=== PATIENT | female | born 1990 | race Caucasian/White ===

== ENCOUNTER 2021-11-29 09:43 | Outpatient (CLI) | payer MEDICAID ==
--- NOTE | 2021-11-29 10:40 | PROVIDER PROGRESS NOTE ---
- HPI Chief Complaint: Decreased movement - Procedures OB Procedure Performed: NST Diagnosis/Indication for NST: Decreased movement Service Date of procedure: 11/29/21 (Date Read: 11/29/21) Procedure Details: NST Procedure Start Date 11/29/21 Start Time 09:55 Stop Time 10:30 Vibroacoustic Stimulation Used No Patient States Movement No: had a fall yesterday - Plan Plan: Patient is a [id number]-aju-year-old -0-4-0 at 26 weeks 2 days gestation presenting to triage for decreased movement. She states she had another fall yesterday approximately 24 hours ago. She was moving things from their home and [employer] which has significantly more snow and slipped on the ice again. She fell on her right shoulder without any abdominal trauma. She was not concerned about this as she had no symptoms until she has decreased movement this morning. She denies leaking or bleeding. No contractions. She denies headache, right upper quadrant pain, changes in vision. Past medical history Obesity Anxiety Past surgical history Salpingectomy x2 Family history No pertinent family history Social history No tobacco, alcohol, drugs Physcial Exam Constitutional: alert, no acute distress, well hydrated, well developed, well nourished, appropriate dress. Skin: normal turgor, normal color. Head: atraumatic, normocephalic. Cardiovascular: RRR. Respiratory: no respiratory distress. Abdomen: nondistended, nontender. Spine: normal mobility. Neurologic: normal, sensation intact, motor intact. Psych: affect and mood appropriate, normal interaction, good eye contact. NST: 125 bpm baseline, minimal variability, acelearations present. No decelerations. Appropraite for gestational age. [place]: Quiescent Assessment and plan 31-year-old -0-4-0 at 26 weeks 2 days gestation with decreased movement 1. Decreased movement: NST is appropriate for gestational age. Discussed that NSTs prior to 28 weeks are less accurate as baby does not developed completely. No concern with current progress. 2. Fall: Patient fell 22 hours ago. Landed on shoulder, no direct abdominal trauma. No signs of abruption or labor. Tocometer is quiet, no vaginal bleeding, no leaking. Discussed that she should stay off the ice and take care when walking. Is still in the process of moving from [employer], and suggested she wait until it is safer to do so. 3. High risk social situation: Her IVF is complicated and is IVF was much desired, and her partner with liver/pancreatic cancer currently in treatment makes their dynamic more difficult. Discussed continue to work as a team to continue to have good outcomes.
[2021-11-29 11:05] VITALS: BP 100/53
== END 2021-11-29 10:50 | disposition home or self-care (01) ==
LOC: WFO 09:43 → FBP 09:46 → WFO 10:50
PROVIDERS: ATTEND Obstetrics & Gynecology
DX: O36.8120 Decreased fetal movements, second trimester, not applicable or unspecified (principal); O09.812 Supervision of pregnancy resulting from assisted reproductive technology, second trimester; Z3A.26 26 weeks gestation of pregnancy; Z91.81 History of falling
CPT/HCPCS: 59025; 99212

== ENCOUNTER 2021-11-29 23:00 | Outpatient (CLI) | payer MEDICAID ==
[2021-11-29 23:24] VITALS: BP 113/78
--- NOTE | 2021-11-30 00:55 | PROVIDER PROGRESS NOTE ---
- HPI Chief Complaint: Other (Fall2) Current : Current EDU 03/05/22 Gestation 26 Weeks and 3 Days 5 Para 0 Vital Signs Temperature 98.6 F 11/29/21 23:11 Heart Rate 90 11/29/21 23:11 Respiratory Rate 22 11/29/21 23:11 Blood Pressure 113/78 11/29/21 23:11 Temperature 98.6 F 11/29/21 23:12 Heart Rate 88 11/29/21 23:12 Respiratory Rate 20 11/29/21 23:12 Blood Pressure 113/78 11/29/21 23:12 O2 Saturation - Procedures OB Procedure Performed: NST NST Procedure: NST Procedure Start Date 11/29/21 Start Time 23:12 Stop Time 23:45 Vibroacoustic Stimulation Used No Patient States Movement Yes - Plan Plan: Patient is a 31-year-old at 26 weeks 3 days gestation her for a fall. She was on her porch letting her dog out, and she fell on her knee and then turned and landed on her butt. She had no abdominal trauma. No leaking, bleeding, or contractions. She is very anxious about this and wanted to come in to check. Past medical history Obesity Anxiety Past surgical history Salpingectomy x2 Family history No pertinent family history Social history No tobacco, alcohol, drugs Physcial Exam Constitutional: alert, no acute distress, well hydrated, well developed, well nourished, appropriate dress. Skin: normal turgor, normal color. Head: atraumatic, normocephalic. Respiratory: no respiratory distress. Abdomen: nondistended, nontender. No brusing, abrasions. Back: No bruising or abrasions Neurologic: Normal movement Psych: affect and mood appropriate, normal interaction, good eye contact. Extremities: Left knee with multiple abrasions with no active bleeding. NST: 130 bpm baseline, minimal variability, acelearations present. No decelerations. Appropraite for gestational age. [place]: Quiescent Assessment and plan 31-year-old -0-4-0 at 26 weeks 3 days gestation with fall on knee 1. Knee abrasion: Encouraged to keep clean. 2. Fall: No abdominal trauma. No signs of injury on abdomen or back. Encouraged to remain off ice as much as possible as she has come in for falls three times this week. 3. High risk social situation: Her IVF is complicated and is IVF was much desired, and her partner with liver/pancreatic cancer currently in treatment makes their dynamic more difficult. Discussed continue to work as a team to continue to have good outcomes. We did have a long conversation about her safety and she denies any issues with domestic violence. She feels very safe in her relationship. She feels embarrassed because she did not think about it looking that way, but that she has no concerns from her . This visit, he is waiting in the car, but he has been present in the last two visits and generally seems supportive, although frustrated with the patient when she does more than he wants leading to her falls. Their daughter appears well adjusted and friendly and does not show signs of being fearful.
== END 2021-11-30 00:15 | disposition home or self-care (01) ==
LOC: WFO 23:00 → FBP 23:02 → WFO 11-30 00:15
PROVIDERS: ATTEND Obstetrics & Gynecology
DX: O9A.212 Injury, poisoning and certain other consequences of external causes complicating pregnancy, second trimester (principal); S80.212A Abrasion, left knee, initial encounter; W00.0XXA Fall on same level due to ice and snow, initial encounter; Y92.008 Other place in unspecified non-institutional (private) residence as the place of occurrence of the external cause; O36.8120 Decreased fetal movements, second trimester, not applicable or unspecified; O09.812 Supervision of pregnancy resulting from assisted reproductive technology, second trimester; Z3A.26 26 weeks gestation of pregnancy; Z91.81 History of falling
CPT/HCPCS: 59025; 99212; 99213; 99215

== ENCOUNTER 2021-12-07 00:14 | Outpatient (CLI) | payer MEDICAID ==
--- NOTE | 2021-12-07 01:10 | PROVIDER PROGRESS NOTE ---
- Procedures NST Procedure: NST Procedure Start Time 23:12 Stop Time 23:45 NST: 125 bpm baseline, mod variability, 15x15 accels no decels Appropriate for gestational age. [place]: Quiescent CAT I/AGA tracing Service Date of procedure: 12/07/21 - Plan Plan: ID: Patient is a 31-year-old at 27 weeks 1 days gestation here for labor assessment. HPI: Reports waxing and waning right sided abdominopelvic pain. Rates 6//10 at worst. Started lightly yesterday. kept her from sleeping tonight. Isolated to right side. No VB or LOF. No N/V. IC 4 days ago. Self stimulation intensified discomfort. PNC: DATING by Embryo transfer date of 06/18/21 gives GABO 03/07/22 AB pos RUb imm/VZV NON-IMMUNE HepC neg HepBsAg neg HIV NR RPR NR GCCT neg/neg Early glucola wnl NIPT: 46 XX, low risk Early glucola wnl FAS wnl, LL placenta resolved OBHX: ; ectopic x2, SAB x2 Current IVF Abnl pap cervix Abnl pap vagina; needs repeat Q3 yrs per outside records Dermoid cyst;stable on left ovary Past medical history Obesity Anxiety ectopic Past surgical history Salpingectomy x2 Cholescystectomy D&C for SAB 2101 LSC RSO for ectopic 2012 LSB LSO for ectopic Colonoscopy/endoscopy Tonsillectomy Myringotomy Family history No pertinent family history Social history with Stage IV liver cancer No tobacco, alcohol, drugs T: Quit 2020; 10 years of 0.25 ppd E: none D: none caregiver for PE: VS: 98.8 90 134/66 113/61 Constitutional: alert, no acute distress, well hydrated, well developed, well nourished, appropriate dress. Skin: normal turgor, normal color. Head: atraumatic, normocephalic. Respiratory: no respiratory distress. CV: RR Abdomen: gravid, soft, nondistended, nontender. Deep palpation does not elicit discomfort Back: No CVA tenderness Neurologic: Normal movement Psych: affect and mood appropriate, normal interaction, good eye contact. Extremities: WWP PELVIC: NEFG. Nl BSUMA. Vagina estrogenized. Anterior cervix visually closed. SVE: Closed with at least 1 cm of external length FFN/UA/GCCT/vaginitis panel collected NST: 125 bpm baseline, mod variability, 15x15 accels no decels Appropriate for gestational age. [place]: Quiescent Assessment and plan Patient is a 31-year-old at 27 weeks 1 days gestation here for labor assessment. No symptoms at present. PTL: Reassuring SVE. [place] quiet. FFN negative -low concern for PTL No blood in urine but urine is very concentration. UA does not support UTI. Could have low level nephrolithiasis Overall urine very concentration. Recommended drinking at least 100 oz of water daily. Patient admits she drinks very little water. Discouraged [employer] [place] FWB: Cat I/AGA tracing FU in clinic DX: False labor DOS 12/07/21 NST read 12/07/21
[2021-12-07 02:05] LABS: BILIRUBIN,URINE NEGATIVE (NEGATIVE); GLUCOSE, URINE (UA) NEGATIVE (NEGATIVE); KETONES,URINE (UA) NEGATIVE (NEGATIVE); LEUKOCYTE ESTERASE, URINE NEGATIVE (NEGATIVE); NITRITE,URINE NEGATIVE (NEGATIVE); OCCULT BLOOD,URINE NEGATIVE (NEGATIVE); PROTEIN,URINE NEGATIVE (NEGATIVE); UROBILINOGEN,URINE 0.2 (NORMAL) E.U./dL (NORMAL)
[2021-12-07 02:12] LABS: BACTERIA,URINE None Seen /HPF (None Seen); CLARITY,URINE CLEAR (CLEAR); RBC,URINE None Seen /HPF (0-5); SQUAMOUS EPITHELIAL CELL,UR FEW Squamous (<= Few); WBC,URINE 0-3 /HPF (0-5)
[2021-12-07 02:28] VITALS: BP 113/61
[2021-12-07 04:21] LABS: CHLAMYDIA TRACHOMATIS DNA NEGATIVE (NEGATIVE); NEISSERIA GONORRHOEAE DNA NEGATIVE (NEGATIVE); TRICHOMONAS VAGINALIS DNA NEGATIVE (NEGATIVE)
[2021-12-07 05:02] LABS: BACTERIAL VAGINOSIS DNA NEGATIVE (NEGATIVE); CANDIDA GLABRATA DNA NEGATIVE (NEGATIVE); CANDIDA GROUP DNA NEGATIVE (NEGATIVE); CANDIDA KRUSEI DNA NEGATIVE (NEGATIVE); TRICHOMONAS VAGINALIS DNA NEGATIVE (NEGATIVE)
== END 2021-12-07 02:30 | disposition home or self-care (01) ==
LOC: WFO 00:14 → FBP 00:19 → WFO 02:30
PROVIDERS: ATTEND Obstetrics & Gynecology
DX: O47.02 False labor before 37 completed weeks of gestation, second trimester (principal); O09.812 Supervision of pregnancy resulting from assisted reproductive technology, second trimester; Z3A.27 27 weeks gestation of pregnancy; Z87.891 Personal history of nicotine dependence
CPT/HCPCS: 36415; 59025; 81001; 82731; 87491; 87591; 87661; 87801; 99213

== ENCOUNTER 2021-12-27 14:54 | Outpatient (CLI) | payer MEDICAID ==
[2021-12-27 15:14] LABS: BILIRUBIN,URINE NEGATIVE (NEGATIVE); GLUCOSE, URINE (UA) NEGATIVE (NEGATIVE); KETONES,URINE (UA) NEGATIVE (NEGATIVE); LEUKOCYTE ESTERASE, URINE NEGATIVE (NEGATIVE); NITRITE,URINE NEGATIVE (NEGATIVE); OCCULT BLOOD,URINE NEGATIVE (NEGATIVE); PROTEIN,URINE NEGATIVE (NEGATIVE); UROBILINOGEN,URINE 0.2 (NORMAL) E.U./dL (NORMAL)
[2021-12-27 15:20] VITALS: BP 125/78
[2021-12-27 15:21] LABS: BACTERIA,URINE Rare /HPF (None Seen); CLARITY,URINE CLEAR (CLEAR); MUCUS,URINE Few Strands; RBC,URINE 0-5 /HPF (0-5); SQUAMOUS EPITHELIAL CELL,UR RARE Squamous (<= Few); WBC,URINE 0-3 /HPF (0-5)
[2021-12-27 18:05] LABS: BACTERIAL VAGINOSIS DNA POSITIVE (NEGATIVE); CANDIDA GLABRATA DNA NEGATIVE (NEGATIVE); CANDIDA GROUP DNA NEGATIVE (NEGATIVE); CANDIDA KRUSEI DNA NEGATIVE (NEGATIVE); TRICHOMONAS VAGINALIS DNA NEGATIVE (NEGATIVE)
--- NOTE | 2021-12-27 18:41 | PROVIDER PROGRESS NOTE ---
- HPI Chief Complaint: Labor Check Current : Current EDU 03/05/22 Gestation 30 Weeks and 2 Days 5 Para 0 Vital Signs Temperature 98.1 F 12/27/21 15:05 Heart Rate 89 12/27/21 15:05 Respiratory Rate 18 12/27/21 15:05 Blood Pressure 125/78 12/27/21 15:05 Temperature 98.1 F 12/27/21 15:05 Heart Rate 89 12/27/21 15:05 Respiratory Rate 18 12/27/21 15:05 Blood Pressure 125/78 12/27/21 15:05 O2 Saturation - Procedures OB Procedure Performed: NST NST Procedure: NST Procedure Start Date 12/27/21 Start Time 15:13 Stop Time 15:37 Vibroacoustic Stimulation Used No Patient States Movement Yes Service Date of procedure: 12/27/21 - Plan Plan: ID: Patient is a 31-year-old at 30 weeks 1 days gestation here for labor assessment. HPI: Patient called the answering service last night reporting a sensation of the uterus protruding into the vagina. She had been squatting for more than 30 minutes while washing her dog. She was given warning signs and instructed to call if cmraping worsneing. Today she reports that the sensation of prolapse has resolved but she has had a steady cramping feeling in her lower abdomen all day. No rhythm to it suggestive of contractions. No LOF or VB. Endorses FM. PNC: DATING by Embryo transfer date of 06/18/21 gives GABO 03/07/22 AB pos RUb imm/VZV NON-IMMUNE HepC neg HepBsAg neg HIV NR RPR NR GCCT neg/neg Early glucola wnl NIPT: 46 XX, low risk Early glucola wnl FAS wnl, LL placenta resolved OBHX: ; ectopic x2, SAB x2 Current IVF Abnl pap cervix Abnl pap vagina; needs repeat Q3 yrs per outside records Dermoid cyst;stable on left ovary Past medical history Obesity Anxiety ectopic Past surgical history Salpingectomy x2 Cholescystectomy D&C for SAB 2101 LSC RSO for ectopic 2012 LSB LSO for ectopic Colonoscopy/endoscopy Tonsillectomy Myringotomy Family history No pertinent family history Social history with Stage IV liver cancer No tobacco, alcohol, drugs T: Quit 2019; 10 years of 0.25 ppd E: none D: none caregiver for PE: VS: Constitutional: alert, no acute distress, well hydrated, well developed, well nourished, appropriate dress. Skin: normal turgor, normal color. Head: atraumatic, normocephalic. Respiratory: no respiratory distress. CV: RR Abdomen: gravid, soft, nondistended, nontender. Deep palpation does not elicit discomfort Back: No CVA tenderness Neurologic: Normal movement Psych: affect and mood appropriate, normal interaction, good eye contact. Extremities: WWP PELVIC: Nl per RN exam FFN neg UA wnl GCCT and vaginitis panel pending Formal US shows closed cevical length 2.9 cm NST: 125 bpm baseline, mod variability, 15x15 accels no decels Appropriate for gestational age. [place]: Quiescent Assessment and plan Patient is a 31-year-old at 30 weeks 1 days gestation here for labor assessment. PTL: TVCL > 2.9 cm in closed length. [place] quiet. FFN negative -low concern for PTL UA wnl GCCT and vaginitis panel pending FWB: Cat I/AGA tracing Discharged to home with warning signs reviewed FU in clinic DX: False labor DOS 12/27/21 NST read 12/27/21
--- NOTE | 2021-12-27 18:51 | PROCEDURE REPORT ---
- HPI Diagnosis/Indication for NST: labor Current EDU 03/05/22 Gestation 30 Weeks and 2 Days 5 Para 0 Vital Signs Temperature 98.1 F 12/27/21 15:05 Heart Rate 89 12/27/21 15:05 Respiratory Rate 18 12/27/21 15:05 Blood Pressure 125/78 12/27/21 15:05 Temperature 98.1 F 12/27/21 15:05 Heart Rate 89 12/27/21 15:05 Respiratory Rate 18 12/27/21 15:05 Blood Pressure 125/78 12/27/21 15:05 O2 Saturation - NST Procedure NST Procedure Start Date 12/27/21 Start Time 15:13 Stop Time 15:37 Vibroacoustic Stimulation Used No Patient States Movement Yes NST: 125 bpm baseline, mod variability, 15x15 accels no decels Appropriate for gestational age. [place]: Quiescent Assessment and plan Patient is a 31-year-old at 30 weeks 1 days gestation here for labor assessment. PTL: TVCL > 2.9 cm in closed length. [place] quiet. FFN negative -low concern for PTL UA wnl GCCT and vaginitis panel pending FWB: Cat I/AGA tracing Discharged to home with warning signs reviewed FU in clinic DX: False labor DOS 12/27/21 NST read 12/27/21
--- NOTE | 2021-12-27 19:39 | Ultrasound Report ---
PROCEDURE: OB Transvaginal INDICATIONS: pelvic pain OUTSIDE/PRIOR DATING DATA: Last menstrual period (LMP): 05/30/2021. LMP-based estimated date of delivery (GABO): 03/06/2022. Estimated delivery date based on embryo transfer date: 03/07/2022 First dating scan (date and location): 08/02/2021. Estimated date of delivery (GABO) from first dating scan: 03/06/2022. The below data below was generated using the GABO of 03/06/2022. TECHNIQUE: Real-time scanning was performed of the fetus, with image documentation and biometric measurements. COMPARISON: [facility] OB ultrasound studies 11/07/2021, 10/24/2021, 10/22/2021. FINDINGS: General: A single living intrauterine gestation is present. Presentation: Breech Placenta: Placental position is anterior, without previa. No periplacental fluid collections. Amniotic fluid index: 17.4 cm, within normal limits for gestational age. Largest pocket: 6.1 cm. heart rate: 130 beats per minute. Maternal cervical canal: The closed segment measures 2.9 cm long; normal length is 2.5 cm or more. T here is a small amount of endocervical fluid within the cervix extending from the internal cervical o s. biometrics: Biparietal diameter: 8.0 cm, 32 weeks 1 day Head circumference: 29.5 cm, 32 weeks 4 days Abdominal circumference: 26.2 cm, 30 weeks 3 days Femur length: 5.7 cm, 29 weeks 6 days Estimated gestational age from initial scan: 30 weeks 1 day Composite gestational age from present scan: 31 weeks 2 days Estimated weight and percentile: 1598 g, 52nd percentile Measurement variability for biometric dating: +/- 10 days from 12-20 weeks gestation, +/- 2 weeks fro m 20-30 weeks gestation, +/- 3 weeks for 30 weeks gestation or later. Limited follow up anatomic survey was performed. The right ventricular outflow tract was visualized a nd appears within normal limits. The sacral spine was again not well seen due to position. IMPRESSION: 1. Single living intrauterine demonstrated in breech position. 2. Estimated weight at 52nd percentile. 3. No periplacental collections to suggest abruption. 4. Small amount of endocervical fluid but the closed cervical length appears within normal limits. Reviewed by: Sim Dawson MD on 12/27/2021 7:38 PM PST Approved by: Sim Dawson MD on 12/27/2021 7:38 PM PST Station ID: [id number]
[2021-12-27 21:36] LABS: CHLAMYDIA TRACHOMATIS DNA NEGATIVE (NEGATIVE); NEISSERIA GONORRHOEAE DNA NEGATIVE (NEGATIVE); TRICHOMONAS VAGINALIS DNA NEGATIVE (NEGATIVE)
== END 2021-12-27 17:20 | disposition home or self-care (01) ==
LOC: WFO 14:54 → FBP 14:55 → WFO 17:20
PROVIDERS: ATTEND Obstetrics & Gynecology
DX: O47.1 False labor at or after 37 completed weeks of gestation (principal); O09.813 Supervision of pregnancy resulting from assisted reproductive technology, third trimester; Z3A.30 30 weeks gestation of pregnancy; Z87.891 Personal history of nicotine dependence
CPT/HCPCS: 36415; 59025; 81001; 82731; 87491; 87591; 87661; 87797; 87801; 99215

== ENCOUNTER 2021-12-27 16:10 | Outpatient (CLI) | payer MEDICAID ==
--- NOTE | 2021-12-27 19:39 | Ultrasound Report ---
PROCEDURE: OB Transvaginal INDICATIONS: pelvic pain OUTSIDE/PRIOR DATING DATA: Last menstrual period (LMP): 05/30/2021. LMP-based estimated date of delivery (GABO): 03/06/2022. Estimated delivery date based on embryo transfer date: 03/07/2022 First dating scan (date and location): 08/02/2021. Estimated date of delivery (GABO) from first dating scan: 03/06/2022. The below data below was generated using the GABO of 03/06/2022. TECHNIQUE: Real-time scanning was performed of the fetus, with image documentation and biometric measurements. COMPARISON: [facility] OB ultrasound studies 11/07/2021, 10/24/2021, 10/22/2021. FINDINGS: General: A single living intrauterine gestation is present. Presentation: Breech Placenta: Placental position is anterior, without previa. No periplacental fluid collections. Amniotic fluid index: 17.4 cm, within normal limits for gestational age. Largest pocket: 6.1 cm. heart rate: 130 beats per minute. Maternal cervical canal: The closed segment measures 2.9 cm long; normal length is 2.5 cm or more. T here is a small amount of endocervical fluid within the cervix extending from the internal cervical o s. biometrics: Biparietal diameter: 8.0 cm, 32 weeks 1 day Head circumference: 29.5 cm, 32 weeks 4 days Abdominal circumference: 26.2 cm, 30 weeks 3 days Femur length: 5.7 cm, 29 weeks 6 days Estimated gestational age from initial scan: 30 weeks 1 day Composite gestational age from present scan: 31 weeks 2 days Estimated weight and percentile: 1598 g, 52nd percentile Measurement variability for biometric dating: +/- 10 days from 12-20 weeks gestation, +/- 2 weeks fro m 20-30 weeks gestation, +/- 3 weeks for 30 weeks gestation or later. Limited follow up anatomic survey was performed. The right ventricular outflow tract was visualized a nd appears within normal limits. The sacral spine was again not well seen due to position. IMPRESSION: 1. Single living intrauterine demonstrated in breech position. 2. Estimated weight at 52nd percentile. 3. No periplacental collections to suggest abruption. 4. Small amount of endocervical fluid but the closed cervical length appears within normal limits. Reviewed by: Sim Dawson MD on 12/27/2021 7:38 PM PST Approved by: Sim Dawson MD on 12/27/2021 7:38 PM PST Station ID: [id number]
== END 2021-12-27 23:59 | disposition home or self-care (01) ==
LOC: DI 16:10
PROVIDERS: ATTEND Obstetrics & Gynecology
DX: O32.1XX0 Maternal care for breech presentation, not applicable or unspecified (principal); Z3A.31 31 weeks gestation of pregnancy

== ENCOUNTER 2022-01-13 10:01 | Outpatient (CLI) | payer MEDICAID | END 2022-01-13 10:02 | disposition home or self-care (01) | LOC: LAB 10:01 | PROVIDERS: ATTEND Obstetrics & Gynecology | DX: O09.90 Supervision of high risk pregnancy, unspecified, unspecified trimester (principal) | CPT/HCPCS: 36415; 82950 ==

== ENCOUNTER 2022-01-19 07:43 | Outpatient (CLI) | payer MEDICAID ==
[2022-01-19 08:56] LABS: GTT GLUCOSE,FASTING 101 mg/dL (70-100)
== END 2022-01-19 07:44 | disposition home or self-care (01) ==
LOC: LAB 07:43
PROVIDERS: ATTEND Obstetrics & Gynecology
DX: O09.90 Supervision of high risk pregnancy, unspecified, unspecified trimester (principal)
CPT/HCPCS: 36415; 82951; 82952

== ENCOUNTER 2022-01-23 14:14 | Outpatient (CLI) | payer MEDICAID ==
[2022-01-23 14:33] VITALS: BP 119/65
--- NOTE | 2022-01-26 07:09 | PROVIDER PROGRESS NOTE ---
- HPI Chief Complaint: Decreased movement Current : Current EDU 03/06/22 Gestation 34 Weeks and 0 Days 1 Para 0 Vital Signs Temperature 97.5 F L 01/23/22 14:32 Heart Rate 101 H 01/23/22 14:32 Respiratory Rate 20 01/23/22 14:32 Blood Pressure 119/65 01/23/22 14:32 O2 Saturation 98 01/23/22 14:32 Temperature 97.5 F L 01/23/22 14:34 Heart Rate 101 H 01/23/22 14:32 Respiratory Rate 20 01/23/22 14:32 Blood Pressure 119/65 01/23/22 14:32 O2 Saturation 98 01/23/22 14:32 - Procedures OB Procedure Performed: NST NST Procedure: NST Procedure Start Date 01/23/22 Start Time 14:25 Stop Time 15:02 Vibroacoustic Stimulation Used Yes Patient States Movement No: no movement x 2 days EFM 140 mod mague 15x15 accels after VAS x2, no decels TOCO: quiet Service Date of procedure: 01/23/22 Findings: ID: Patient is a 31-year-old at 34 weeks 0 days gestation here for assessment of decreased movement. HPI: Patient called clinic and reported no FM x 2 days. Was directed to triage for assessment. Patient reports that she rarely feels movement. Attributes this to an anterior placenta. Has been having a lot of stress at home with worsening prognosis for . No VB/CTX/LOF. PNC: LMP: 05/30/2021 GABO by LMP: 03/06/2022 EMBRYO TRANSFER 06/18/2021 Initial Ultrasound date/GABO by US: 07/31/2021 @ [facility] c/w dates. Final GABO by embryo transfer date: 03/07/2022 IVF : Taking aspirin daily. Likely 39 week induction. FOB with stage 4 liver cancer. Worsening prognosis as medication not as effective as it had been AB+ /Rubella immune VZV: nonimmune Genetic testing: "low risk" and "female fetus" Neg CF, Neg Nery, Neg TaySachs FAS: per [facility] charting "10/24 EFW 441g, 80%tile, 11/07 repeat normal with low lying placenta resolved; still needs sacral spine and RVOT views" Glucola: per [facility] charting early 1hr normal; repeat 1hr GTT ordered 12/16/21 Influenza: declines TDAP: 12/05/2021 GBS: HSV: Denies in self or partner Breast pump Rx:01/01/22 MOD: Plan for . Likely 39 week induction. pp contraception: S/P Bilateral salpingectomy. This is IVF . pap:per [facility] charting "NIL +HPV, repeat one year" Covid: Completed [place] vaccine 04/10/21 OBHX: ; ectopic x2, SAB x2 Current IVF Abnl pap cervix Abnl pap vagina; needs repeat Q3 yrs per outside records Dermoid cyst;stable on left ovary Past medical history Obesity Anxiety ectopic Past surgical history Salpingectomy x2 Cholescystectomy D&C for SAB 2101 LSC RSO for ectopic 2012 LSB LSO for ectopic Colonoscopy/endoscopy Tonsillectomy Myringotomy Family history No pertinent family history Social history with Stage IV liver cancer No tobacco, alcohol, drugs T: Quit 2019; 10 years of 0.25 ppd E: none D: none caregiver for PE: VS: 98.8 90 134/66 113/61 Constitutional: alert, no acute distress, well hydrated, well developed, well nourished, appropriate dress. Skin: normal turgor, normal color. Head: atraumatic, normocephalic. Respiratory: no respiratory distress. CV: RR Abdomen: gravid, soft, nondistended, nontender Neurologic: Normal movement Psych: affect and mood appropriate, normal interaction, good eye contact. Extremities: WWP EFM 140 mod mague 15x15 accels after VAS x2, no decels TOCO: quiet Assessment and plan Patient is a 31-year-old at 34 weeks 0 days gestation here for assessment of decreased movement FWB: Cat I tracing Extensive discussion regarding need to present to triage if without movement x 2 hours Provided with kick count instructions and tracking sheet Reviewed that if she cannot feel movement with kick counts, she needs to start twice weekly NSTs for surveillance Will fu with primary OB provider. DOS 01/23/22 NST read 01/23/22
== END 2022-01-23 15:05 | disposition home or self-care (01) ==
LOC: WFO 14:14 → FBP 14:18 → WFO 15:05
PROVIDERS: ATTEND Obstetrics & Gynecology
DX: O36.8130 Decreased fetal movements, third trimester, not applicable or unspecified (principal); O09.813 Supervision of pregnancy resulting from assisted reproductive technology, third trimester; Z3A.34 34 weeks gestation of pregnancy; Z63.79 Other stressful life events affecting family and household; Z79.82 Long term (current) use of aspirin; Z87.891 Personal history of nicotine dependence
CPT/HCPCS: 59025; 99214

== ENCOUNTER 2022-01-27 11:01 | Outpatient (CLI) | payer MEDICAID ==
[2022-01-27 11:27] VITALS: BP 111/63
--- NOTE | 2022-01-27 16:42 | PROCEDURE REPORT ---
- HPI Current EDU 03/06/22 Gestation 34 Weeks and 4 Days 5 Para 0 Vital Signs Temperature 98.2 F 01/27/22 11:10 Temperature 98.3 F 01/27/22 11:15 Heart Rate 98 01/27/22 11:15 Respiratory Rate 18 01/27/22 11:15 Blood Pressure 111/63 01/27/22 11:15 O2 Saturation 98 01/27/22 11:15 - NST Procedure NST Procedure Start Date 01/27/22 Start Time 11:36 Stop Time 11:56 Vibroacoustic Stimulation Used No Patient States Movement Yes: Decreased EFM 135 mod mague 15x15 accels no decels TOCO: quiet - Results and Plan Findings/Impression: 31 yo at 34+4 wga with decreased movement here for NST Cat I tracing Cont with twice weekly NST DOS: 01/27/22 NST read 01/27/22
== END 2022-01-27 12:03 | disposition home or self-care (01) ==
LOC: WFO 11:01 → FBP 11:02 → WFO 12:03
PROVIDERS: ATTEND Obstetrics & Gynecology
DX: O36.8130 Decreased fetal movements, third trimester, not applicable or unspecified (principal); Z3A.34 34 weeks gestation of pregnancy
CPT/HCPCS: 59025

== ENCOUNTER 2022-01-28 16:36 | Outpatient (CLI) | payer MEDICAID ==
--- NOTE | 2022-01-29 11:24 | Ultrasound Report ---
PROCEDURE: OB F/U or Repeat INDICATIONS: UTERINE SIZE DATE DISCREPANCY OUTSIDE/PRIOR DATING DATA: Last menstrual period (LMP): 05/30/2021. LMP-based estimated date of delivery (GABO): 03/06/2022. Estimated date of delivery (GABO) from anterotransfer date: 03/07/2022. First dating scan (date and location): 08/02/2021. Estimated date of delivery (GABO) from first dating scan: 03/06/2022. The below data below was generated using the ultrasound GABO of 03/06/2022. TECHNIQUE: Real-time scanning was performed of the fetus, with image documentation and biometric measurements. Endovaginal scanning: Not performed. COMPARISON: OB ultrasound, 12/27/2021.. FINDINGS: General: A single living intrauterine gestation is present. Presentation: Vertex Placenta: Placental position is anterior, without previa. Amniotic fluid index: 15.4 cm, largest pocket 6.2 cm. heart rate: 145 beats per minute. Maternal cervical canal: Not imaged. biometrics: Biparietal diameter: 36 weeks 5 days Head circumference: 38 weeks 3 days Abdominal circumference: 27 weeks 1 day Femur length: 36 weeks 4 days Estimated gestational age from initial scan: 34 weeks 5 days. Composite gestational age from present scan: 37 weeks 2 days Estimated weight and percentile: 3108.6 g; 96.3% for gestational age. Measurement variability in biometric dating: +/- 10 days from 12-20 weeks gestation, +/- 2 weeks from 20-30 weeks gestation, +/- 3 weeks at 30 weeks gestation or more. Other: Nuchal cord is noted. IMPRESSION: 1. A single living IUP is again demonstrated. Fetus is in vertex presentation. 2. weight 3108.6 g: at the 96.3% for gestational age concerning for macrosomia. 3. Nuchal cord is noted. Reviewed by: Fátima Livingston MD on 01/29/2022 11:23 AM PST Approved by: Fátima Livingston MD on 01/29/2022 11:23 AM PST Station ID: [id number]
== END 2022-01-28 16:37 | disposition home or self-care (01) ==
LOC: DI 16:36
PROVIDERS: ATTEND Obstetrics & Gynecology
DX: O26.843 Uterine size-date discrepancy, third trimester (principal); Z3A.37 37 weeks gestation of pregnancy

== ENCOUNTER 2022-01-30 10:48 | Outpatient (CLI) | payer MEDICAID ==
--- NOTE | 2022-01-30 13:03 | PROCEDURE REPORT ---
- HPI Diagnosis/Indication for NST: Decreased movement Current EDU 03/06/22 Gestation 35 Weeks and 0 Days 1 Para 0 Vital Signs Temperature 98.4 F 01/30/22 11:20 Temperature 98.4 F 01/30/22 11:20 Heart Rate Respiratory Rate Blood Pressure O2 Saturation - NST Procedure NST Procedure Start Date 01/30/22 Start Time 11:25 Stop Time 11:50 Vibroacoustic Stimulation Used No Patient States Movement Yes Date performed: 01/30/22 Date read: 01/30/22 - Results and Plan Plan: Patient is a 31-year-old G1, P0 at 35 weeks 0 days gestation here for scheduled NST. FHT: 140 beats per minute baseline, moderate variability, accelerations present, no decelerations. Daisy: Quiescent Diagnosis 35 weeks gestation IVF Decreased due to movement Continue with twice weekly NST.
== END 2022-01-30 12:10 | disposition home or self-care (01) ==
LOC: WFO 10:48 → FBP 11:31 → WFO 12:10
PROVIDERS: ATTEND Obstetrics & Gynecology
DX: O36.8130 Decreased fetal movements, third trimester, not applicable or unspecified (principal); Z3A.35 35 weeks gestation of pregnancy; O09.813 Supervision of pregnancy resulting from assisted reproductive technology, third trimester
CPT/HCPCS: 59025

== ENCOUNTER 2022-02-03 11:33 | Outpatient (CLI) | payer MEDICAID ==
[2022-02-03 11:52] VITALS: BP 131/79
--- NOTE | 2022-02-03 13:35 | PROCEDURE REPORT ---
- HPI Diagnosis/Indication for NST: Decreased movement Current EDU 03/06/22 Gestation 35 Weeks and 4 Days 5 Para 0 Vital Signs Temperature 98.1 F 02/03/22 11:45 Heart Rate 110 H 02/03/22 11:45 Respiratory Rate 18 02/03/22 11:45 Blood Pressure 131/79 H 02/03/22 11:45 Temperature 98.1 F 02/03/22 11:52 Heart Rate 110 H 02/03/22 11:52 Respiratory Rate 18 02/03/22 11:52 Blood Pressure 131/79 H 02/03/22 11:52 O2 Saturation 99 02/03/22 11:52 - NST Procedure NST Procedure Start Date 02/03/22 Start Time 11:45 Stop Time 12:05 Vibroacoustic Stimulation Used No Patient States Movement Yes EFM: 140s, moderate variability, positive accelerations 15x15, no decelerations [place]: no contractions NST reactive - Results and Plan Findings/Impression: 31yo at 35.4w presenting for NST for decreased movement. No other concerns. VSS as above NST reactive Follow up as scheduled with primary OB
== END 2022-02-03 12:15 | disposition home or self-care (01) ==
LOC: WFO 11:33 → FBP 11:35 → WFO 12:15
PROVIDERS: ATTEND Obstetrics & Gynecology
DX: O36.8130 Decreased fetal movements, third trimester, not applicable or unspecified (principal); Z3A.35 35 weeks gestation of pregnancy
CPT/HCPCS: 59025

== ENCOUNTER 2022-02-06 10:57 | Outpatient (CLI) | payer MEDICAID ==
[2022-02-06 11:59] VITALS: BP 90/60
--- NOTE | 2022-02-06 16:19 | PROCEDURE REPORT ---
- HPI Diagnosis/Indication for NST: Decreased movement Current EDU 03/06/22 Gestation 36 Weeks and 0 Days 5 Para 0 Vital Signs Temperature 98.1 F 02/06/22 11:11 Temperature 98.1 F 02/06/22 11:58 Heart Rate 99 02/06/22 11:58 Respiratory Rate 20 02/06/22 11:58 Blood Pressure 90/60 02/06/22 11:58 O2 Saturation 99 02/06/22 11:58 - NST Procedure NST Procedure Start Date 02/06/22 Start Time 12:11 Stop Time 12:39 Vibroacoustic Stimulation Used No Patient States Movement Yes heart rate baseline-beats per minutes Moderate variability Accelerations 140 Decelerations absents Contractions none NST reactive and reassuring - Results and Plan Findings/Impression: 36 weeks 0 days. Scheduled for NST for history of decreased movement. NST reactive and reassuring. movement noted by patient.
== END 2022-02-06 12:45 | disposition home or self-care (01) ==
LOC: WFO 10:57 → FBP 11:00 → WFO 12:45
PROVIDERS: ATTEND Obstetrics & Gynecology
DX: O36.8130 Decreased fetal movements, third trimester, not applicable or unspecified (principal); Z3A.36 36 weeks gestation of pregnancy; O09.93 Supervision of high risk pregnancy, unspecified, third trimester
CPT/HCPCS: 59025

== ENCOUNTER 2022-02-12 08:00 | Outpatient (CLI) | payer MEDICAID | END 2022-02-12 23:59 | disposition home or self-care (01) | LOC: LAB.WC 08:00 | PROVIDERS: ATTEND Obstetrics & Gynecology | DX: Z36.85 Encounter for antenatal screening for Streptococcus B (principal) | CPT/HCPCS: 87797 ==

== ENCOUNTER 2022-02-13 11:09 | Outpatient (CLI) | payer MEDICAID ==
[2022-02-13 11:34] VITALS: BP 100/69
--- NOTE | 2022-02-28 05:13 | PROCEDURE REPORT ---
- HPI Current EDU 03/06/22 Gestation 37 Weeks and 0 Days 5 Para 0 Vital Signs Temperature 97.9 F 02/13/22 11:32 Heart Rate 83 02/13/22 11:32 Respiratory Rate 18 02/13/22 11:32 Blood Pressure 100/69 02/13/22 11:32 O2 Saturation 98 02/13/22 11:32 Temperature 97.9 F 02/13/22 11:32 Heart Rate 83 02/13/22 11:32 Respiratory Rate 18 02/13/22 11:32 Blood Pressure 100/69 02/13/22 11:32 O2 Saturation 98 02/13/22 11:32 - NST Procedure NST Procedure Start Date 02/13/22 Start Time 11:30 Stop Time 12:00 Vibroacoustic Stimulation Used No Patient States Movement Yes EFM 130 mod mague 15x15 accels no decels TOCO: quiet - Results and Plan Findings/Impression: - Results and Plan Findings/Impression: 31 yo at 37+0 wga with decreased movement here for NST Cat I tracing Cont with twice weekly NST DOS: 02/13/22 NST read 02/13/22
== END 2022-02-13 12:30 | disposition home or self-care (01) ==
LOC: WFO 11:09 → FBP 11:14 → WFO 12:30
PROVIDERS: ATTEND Obstetrics & Gynecology
DX: O36.8130 Decreased fetal movements, third trimester, not applicable or unspecified (principal); O09.93 Supervision of high risk pregnancy, unspecified, third trimester; Z3A.37 37 weeks gestation of pregnancy
CPT/HCPCS: 59025; 99213

== ENCOUNTER 2022-02-17 10:59 | Outpatient (CLI) | payer MEDICAID ==
[2022-02-17 11:17] VITALS: BP 115/69
--- NOTE | 2022-02-28 05:14 | PROCEDURE REPORT ---
- HPI Current EDU 03/06/22 Gestation 37 Weeks and 4 Days 5 Para 0 Vital Signs Temperature 98.1 F 02/17/22 11:09 Heart Rate 97 02/17/22 11:09 Respiratory Rate 99 H 02/17/22 11:09 Blood Pressure 115/69 02/17/22 11:09 O2 Saturation 99 02/17/22 11:09 Temperature 98.1 F 02/17/22 11:55 Heart Rate 97 02/17/22 11:55 Respiratory Rate 17 02/17/22 11:55 Blood Pressure 115/69 02/17/22 11:55 O2 Saturation 99 02/17/22 11:09 - NST Procedure NST Procedure Start Date 02/17/22 Start Time 11:03 Stop Time 12:00 Vibroacoustic Stimulation Used Yes: x1 Patient States Movement Yes EFM 135 mod mague 15x15 accels no decels TOCO: irritable - Results and Plan Findings/Impression: - Results and Plan Findings/Impression: 31 yo at 37+4 wga with decreased movement here for NST Cat I tracing Cont with twice weekly NST DOS: 02/17/22 NST read 02/17/22
== END 2022-02-17 12:05 | disposition home or self-care (01) ==
LOC: WFO 10:59 → FBP 11:01 → WFO 12:05
PROVIDERS: ATTEND Obstetrics & Gynecology
DX: O36.8130 Decreased fetal movements, third trimester, not applicable or unspecified (principal); O09.93 Supervision of high risk pregnancy, unspecified, third trimester; Z3A.37 37 weeks gestation of pregnancy
CPT/HCPCS: 59025

== ENCOUNTER 2022-02-20 16:01 | Outpatient (CLI) | payer MEDICAID ==
--- NOTE | 2022-02-20 22:33 | Ultrasound Report ---
PROCEDURE: OB F/U or Repeat INDICATIONS: SUPERVISION OF HIGH RISK OUTSIDE/PRIOR DATING DATA: Last menstrual period (LMP): 05/30/2021. LMP-based estimated date of delivery (GABO): 03/06/2022. Estimated date of delivery (GABO) from embryo transfer date: 03/07/2022. Estimated date of delivery (GABO) from first dating scan: 03/06/2022. The below data below was generated using the clinical GABO of 03/06/2022 TECHNIQUE: Real-time scanning was performed of the fetus, with image documentation and biometric measurements. COMPARISON: Ultrasound 02/19/2022, 01/28/2022, 12/27/2021. FINDINGS: General: A single living intrauterine gestation is present. Presentation: Vertex Placenta: Placental position is anterior, without previa. Amniotic fluid index: 19.2 cm, within normal limits for gestational age. Largest pocket: 6.7 cm. heart rate: 131 beats per minute. Maternal cervical canal: Not imaged. biometrics: Biparietal diameter: 9.9 cm, 40 weeks 4 days Head circumference: 35.5 cm, 41 weeks 4 days Abdominal circumference: 38.6 cm, out of range Femur length: 7.5 cm, 38 weeks 2 days Estimated gestational age from initial scan: 38 weeks 0 days Composite gestational age from present scan: 40 weeks 1 day Estimated weight and percentile: 4402 g, percentile out of range. Measurement variability in biometric dating: +/- 10 days from 12-20 weeks gestation, +/- 2 weeks from 20-30 weeks gestation, +/- 3 weeks at 30 weeks gestation or more. IMPRESSION: 1. Single living intrauterine demonstrating interval growth with estimated weight gre ater than reference ranges. Findings are suggestive of macrosomia and clinical follow-up is recommend ed. 2. Amniotic fluid index measures 19.2 cm, within normal limits. Reviewed by: Sim Villarreal MD on 02/20/2022 10:31 PM PDT Approved by: Sim Villarreal MD on 02/20/2022 10:31 PM PDT Station ID: [id number]
== END 2022-02-20 16:02 | disposition home or self-care (01) ==
LOC: DI 16:01
PROVIDERS: ATTEND Obstetrics & Gynecology
DX: O09.93 Supervision of high risk pregnancy, unspecified, third trimester (principal); Z3A.40 40 weeks gestation of pregnancy

== ENCOUNTER 2022-02-24 10:55 | Outpatient (CLI) | payer MEDICAID ==
[2022-02-24 11:18] VITALS: BP 108/52
--- NOTE | 2022-02-24 13:30 | PROCEDURE REPORT ---
- HPI Diagnosis/Indication for NST: Decreased movement Current EDU 03/06/22 Gestation 38 Weeks and 4 Days 5 Para 0 Vital Signs Temperature 98.9 F 02/24/22 11:13 Heart Rate 81 02/24/22 11:13 Respiratory Rate 16 02/24/22 11:13 Blood Pressure 108/52 L 02/24/22 11:13 Temperature 98.9 F 02/24/22 11:14 Heart Rate 81 02/24/22 11:14 Respiratory Rate 16 02/24/22 11:14 Blood Pressure 108/52 L 02/24/22 11:14 O2 Saturation 99 02/24/22 11:14 - NST Procedure NST Procedure Start Date 02/24/22 Start Time 11:12 Stop Time 11:55 Vibroacoustic Stimulation Used No Patient States Movement Yes Date performed: 02/24/2022 Date read: 02/24/2022 - Results and Plan Plan: FHT: 125 beats per minute baseline, moderate variability, accelerations present, no decelerations. Gantt: Quiescent Diagnosis 38 weeks induction Decreased movement macrosomia Impaired glucose tolerance Excessive weight gain in . Continue with twice weekly NST.
== END 2022-02-24 12:00 | disposition home or self-care (01) ==
LOC: WFO 10:55 → FBP 10:56 → WFO 12:00
PROVIDERS: ATTEND Obstetrics & Gynecology
DX: O36.8130 Decreased fetal movements, third trimester, not applicable or unspecified (principal); O36.63X0 Maternal care for excessive fetal growth, third trimester, not applicable or unspecified; O99.810 Abnormal glucose complicating pregnancy; O26.03 Excessive weight gain in pregnancy, third trimester; Z3A.38 38 weeks gestation of pregnancy
CPT/HCPCS: 59025; 99214

== ENCOUNTER 2022-02-26 13:07 | Outpatient (CLI) | payer MEDICAID ==
[2022-02-26 14:14] LABS: BASOPHILS % (AUTO) 0.2 %; EOSINOPHILS # (AUTO) 0.1 10^3/uL (0.0-0.7); EOSINOPHILS % (AUTO) 0.6 %; HCT - HEMATOCRIT 32.8 % (37.0-47.0); HGB - HEMOGLOBIN 10.7 g/dL (12.0-16.0); LYMPHOCYTES # (AUTO) 1.6 10^3/uL (1.5-3.5); LYMPHOCYTES % (AUTO) 18.3 %; MEAN CORPUSCULAR HEMOGLOBIN 26.6 pg (27.0-31.0); MEAN CORPUSCULAR HGB CONC 32.6 g/dL (32.0-36.0); MEAN CORPUSCULAR VOLUME 81.6 fL (81.0-99.0); MEAN PLATELET VOLUME 10.7 fL (7.9-10.8); MONOCYTES # (AUTO) 0.3 10^3/uL (0.0-1.0); MONOCYTES % (AUTO) 3.8 %; NEUTROPHILS # (AUTO) 6.7 10^3/uL (1.5-6.6); NEUTROPHILS % (AUTO) 76.8 %; PLT - PLATELET COUNT 185 10^3/uL (130-450); RED BLOOD COUNT 4.02 10^6/uL (4.20-5.40); RED CELL DISTRIBUTION WIDTH 15.3 % (12.0-15.0); WHITE BLOOD COUNT 8.7 x10^3/uL (4.8-10.8)
[2022-02-26 14:18] VITALS: BP 117/72
--- NOTE | 2022-02-28 05:31 | PROCEDURE REPORT ---
- HPI Current EDU 03/06/22 Gestation 38 Weeks and 6 Days 5 Para 0 Vital Signs Temperature 98.2 F 02/26/22 14:00 Heart Rate 62 02/26/22 14:00 Respiratory Rate 16 02/26/22 14:00 Blood Pressure 117/72 02/26/22 14:00 O2 Saturation 100 02/26/22 14:00 Temperature 98.2 F 02/26/22 14:20 Heart Rate 62 02/26/22 14:20 Respiratory Rate 16 02/26/22 14:20 Blood Pressure 117/72 02/26/22 14:20 O2 Saturation 100 02/26/22 14:00 - NST Procedure NST Procedure Start Date 02/26/22 Start Time 14:05 Stop Time 14:25 Vibroacoustic Stimulation Used No Patient States Movement Yes EFM: 125 beats per minute baseline, moderate variability, accelerations present, no decelerations. [place]: irreg - Results and Plan Findings/Impression: 31 yo at 38+6 wga with complicated by prob list below here for NST EFM 125 beats per minute baseline, moderate variability, accelerations present, no decelerations. [place]: irreg Cat I tracing Diagnosis BMI >45 Decreased movement macrosomia Impaired glucose tolerance Excessive weight gain in . Continue with twice weekly NST. READ 02/26/22 DOS 02/26/22
== END 2022-02-26 14:30 | disposition home or self-care (01) ==
LOC: LAB 13:07 → FBP 13:10 → LAB 14:30
PROVIDERS: ATTEND Obstetrics & Gynecology
DX: Z01.812 Encounter for preprocedural laboratory examination (principal); O36.60X0 Maternal care for excessive fetal growth, unspecified trimester, not applicable or unspecified; O24.919 Unspecified diabetes mellitus in pregnancy, unspecified trimester
CPT/HCPCS: 36415; 59025; 85025; 86850; 86900; 86901

== ENCOUNTER 2022-02-27 09:00 | Inpatient (IN) | payer MEDICAID ==
--- OUTSIDE RECORDS SUMMARY | 2022-02-27 09:04 | EXTERNAL MEDICAL SUMMARY RPT | Continuity of Care Document ---
:1990 Author Organization [facility] Address [address] [place] [address] Phone Care Team Providers Name Role Phone RN Unavailable Unavailable MA-C Unavailable Unavailable MD Unavailable Unavailable Direct Unavailable Unavailable MPH Unavailable Unavailable VP COMPLIANCE Unavailable Unavailable Elisha Unavailable Unavailable RN Unavailable Unavailable Allergies No information. Encounters No information. Medications No information. Problems date description facility 20220211 [facility],REFLEX IF PEN ALLERGIC All 20220211 Encounter for screening for S treptococcus B All 20220211 Encounter for screening for S treptococcus B of All mother 20220211 screening All 20220129 [facility] All 20220124 [facility] FOLLOW-[facility] All 20220123 Decreased movements affecting reema gement of mother, All antepartum condition or complication 20220123 Reduced movement All 20220123 NST All 20220123 Decreased movements, third trimes ter, not applicable or All unspecified 20220115 Uterine size for dates discrepancy All 20220115 Uterine size-date discrepancy, third tr imester All 20220115 Uterine size date discrepancy, antepart um condition or All complication 20220113 3HR GTT All 20211216 Other specified conditions influencing health status All 20211216 Details of drug misuse behavior All 20211216 Abnormal immunological findings in spec imens from female All genital organs 20211216 Procedure carried out on subject All 20211216 Other specified problems related to [facility] All 20211216 Total score? All 20211216 resulting from assisted repro ductive technology All 20211216 Abnormal cervical Papanicolaou smear wit h positive human All papillomavirus deoxyribonucleic acid randy t 20211216 Supervision of high risk All 20211216 Other specified health status All 20211216 Other health problems within the family All 20211216 [facility] OB FOLLOW-UP All 20211216 Supervision of resulting from assisted reproductive All technology, unspecified trimester 20211216 1HR GTT All 20211216 Tobacco smoking status NHIS All 20211216 Supervision of unspecified high-risk pr egnancy All 20211216 Supervision of high risk , uns pecified, unspecified All trimester 20211216 Caregiver role strain All 20211216 Alcohol use All 20211216 Never smoker All 20211216 Varicella non-immune All 20211216 Human papillomavirus infection in condit ions classified All elsewhere and of unspecified site 20211207 No current problems or disability - unk nown All Procedures date description facility 20220220 0502F - SUBSEQUENT VISIT All 20220211 [facility],REFLEX IF PEN ALLERGIC All 20220211 0502F - SUBSEQUENT VISIT All 20220203 0502F - SUBSEQUENT VISIT All 20220203 0502F - SUBSEQUENT VISIT All 20220203 0502F - SUBSEQUENT VISIT All 20220129 0502F - SUBSEQUENT VISIT All 20220129 0502F - SUBSEQUENT VISIT All 20220129 0502F - SUBSEQUENT VISIT All 20220129 0502F - SUBSEQUENT VISIT All 20220124 [facility] FOLLOW-UP All 20220124 US OB FOLLOW-UP All 20220124 US OB FOLLOW-UP All 20220124 US OB FOLLOW-UP All 20220115 0502F - SUBSEQUENT VISIT All 20220115 0502F - SUBSEQUENT VISIT All 20220115 0502F - SUBSEQUENT VISIT All 20220115 0502F - SUBSEQUENT VISIT All 20220115 0502F - SUBSEQUENT VISIT All 20220115 0502F - SUBSEQUENT VISIT All 20220113 3HR GTT All 20220113 3HR GTT All 20220113 3HR GTT All 20220113 3HR GTT All 20220101 0502F - SUBSEQUENT VISIT All 20220101 0502F - SUBSEQUENT VISIT All 20220101 0502F - SUBSEQUENT VISIT All 20220101 0502F - SUBSEQUENT VISIT All 20220101 0502F - SUBSEQUENT VISIT All 20220101 0502F - SUBSEQUENT VISIT All 20211216 [id number] Initial Visit (Global) All 20211216 1HR GTT All 20211216 [id number] Initial Visit (Global) All 20211216 1HR GTT All 20211216 US OB FOLLOW-UP All 20211216 [id number] Initial Visit (Global) All 20211216 1HR GTT All 20211216 US OB FOLLOW-UP All 20211216 [id number] Initial Visit (Global) All 20211216 [id number] Initial Visit (Global) All 20211216 1HR GTT All 20211216 [id number] Initial Visit (Global) All [id number] 1HR GTT All 20211216 US OB FOLLOW-UP All 20211216 [id number] Initial Visit (Global) All 20211216 1HR GTT All 20211216 US OB FOLLOW-UP All Results test status date ordered by attending specimen antoine e Vaginal_Group_B_Strep_ unknown [id number] unknown unknown unknown by_Real-Time_PCR T unknown [id number] unknown unknown unknown WBC_urine_on_microscop unknown [id number] unknown unknown unknown y Urobilinogen_Presence_ unknown [id number] unknown unknown unknown in_Urine_by_Test_strip Specific_gravity_of_Ur unknown [id number] unknown unknown unknown ine_by_Test_strip Nitrite_Presence_in_Ur unknown [id number] unknown unknown unknown ine_by_Test_strip Leukocyte_esterase_Pre unknown 24143211 unknown unknown unknown sence_in_Urine_by_Test_ strip Ketones_Mass_volume_in unknown [id number] unknown unknown unknown _Urine_by_Test_strip Color_of_Urine unknown [id number] unknown unknown unknown Bilirubin.total_Presen unknown [id number] unknown unknown unknown ce_in_Urine_by_Test_str ip clarity_urine_point unknown [id number] unknown unknown unk nown pH_study_of_acidity unknown [id number] unknown unknown unk nown glucose_urine unknown 57381397 unknown unknown unknown leukocyte_esterase_uri unknown 24681048 unknown unknown unknown ne_by_dipstick urobilinogen_urine_sem unknown [id number] unknown unknown unknown iquantitative_dipstick_ specific_gravity_urine unknown 99279097 unknown unknown unknown nitrite_urine_semiquan unknown [id number] unknown unknown unknown titative ketones_urine_by_test_ unknown 66250944 unknown unknown unknown strip bilirubin_urine unknown 32003272 unknown unknown unknown urine_color unknown [id number] unknown unknown unknown Glucose_Mass_volume_in unknown 50580743 unknown unknown unknown _Urine WBC_urine_on_microscop unknown [id number] unknown unknown unknown y WBC_URINE unknown 75512178 unknown unknown unknown UROBILINOGEN_URINE unknown 41361315 unknown unknown unkn own SPECIFIC_GRAVITY_URINE unknown [id number] unknown unknown unknown T unknown [id number] unknown unknown unknown T unknown 74364099 unknown unknown unknown T unknown 05887512 unknown unknown unknown T unknown 80264050 unknown unknown unknown T unknown 51641180 unknown unknown unknown T unknown 04814111 unknown unknown unknown T unknown 35603034 unknown unknown unknown T unknown 05303648 unknown unknown unknown T unknown 98026853 unknown unknown unknown T unknown 09978141 unknown unknown unknown T unknown 00507626 unknown unknown unknown PH_URINE unknown 91050825 unknown unknown unknown NITRITE_URINE unknown [id number] unknown unknown unknown LEUKOCYTE_ESTERASE_URI unknown 15037081 unknown unknown unknown NE KETONES_URINE_UA_ unknown [id number] unknown unknown unkno wn GLUCOSE_URINE_UA_ unknown [id number] unknown unknown unkno wn COLOR_URINE unknown 60827614 unknown unknown unknown CLARITY_URINE unknown [id number] unknown unknown unknown BILIRUBIN_URINE unknown [id number] unknown unknown unknown WBC_urine_on_microscop unknown [id number] unknown unknown unknown y Urobilinogen_Presence_ unknown 59290183 unknown unknown unknown in_Urine_by_Test_strip Specific_gravity_of_Ur unknown 80558882 unknown unknown unknown ine_by_Test_strip Nitrite_Presence_in_Ur unknown 44090071 unknown unknown unknown ine_by_Test_strip Leukocyte_esterase_Pre unknown 51528646 unknown unknown unknown sence_in_Urine_by_Test_ strip Ketones_Mass_volume_in unknown 83909959 unknown unknown unknown _Urine_by_Test_strip Color_of_Urine unknown 48453476 unknown unknown unknown Bilirubin.total_Presen unknown 39173877 unknown unknown unknown ce_in_Urine_by_Test_str ip clarity_urine_point unknown 15757883 unknown unknown unk nown pH_study_of_acidity unknown 38791827 unknown unknown unk nown glucose_urine unknown 43981231 unknown unknown unknown leukocyte_esterase_uri unknown 27124038 unknown unknown unknown ne_by_dipstick urobilinogen_urine_sem unknown 22877774 unknown unknown unknown iquantitative_dipstick_ specific_gravity_urine unknown 15696620 unknown unknown unknown nitrite_urine_semiquan unknown 88149024 unknown unknown unknown titative ketones_urine_by_test_ unknown 34273924 unknown unknown unknown strip bilirubin_urine unknown 16819772 unknown unknown unknown urine_color unknown 17705094 unknown unknown unknown Glucose_Mass_volume_in unknown 55169938 unknown unknown unknown _Urine WBC_urine_on_microscop unknown 37691104 unknown unknown unknown y WBC_URINE unknown 46616600 unknown unknown unknown UROBILINOGEN_URINE unknown 24034228 unknown unknown unkn own SPECIFIC_GRAVITY_URINE unknown 86695082 unknown unknown unknown T unknown 68389993 unknown unknown unknown T unknown 52758163 unknown unknown unknown T unknown 80930683 unknown unknown unknown T unknown 34172180 unknown unknown unknown T unknown 55534715 unknown unknown unknown T unknown 28563878 unknown unknown unknown T unknown 03552617 unknown unknown unknown T unknown 10391028 unknown unknown unknown T unknown 29497127 unknown unknown unknown T unknown 74388416 unknown unknown unknown T unknown 40611627 unknown unknown unknown PH_URINE unknown 41266726 unknown unknown unknown NITRITE_URINE unknown 62061110 unknown unknown unknown LEUKOCYTE_ESTERASE_URI unknown [id number] unknown unknown unknown NE KETONES_URINE_UA_ unknown 15711505 unknown unknown unkno wn GLUCOSE_URINE_UA_ unknown 07600060 unknown unknown unkno wn COLOR_URINE unknown 46021590 unknown unknown unknown CLARITY_URINE unknown 61288916 unknown unknown unknown BILIRUBIN_URINE unknown 63634691 unknown unknown unknown glucose_tolerance_test unknown 66678905 unknown unknown unknown _with_glucose_fasting blood_glucose_3_hours_ unknown 25688011 unknown unknown unknown after_glucose_tolerance _test blood_glucose_2_hours_ unknown 90622669 unknown unknown unknown after_glucose_tolerance _test blood_glucose_60_minut unknown 58567838 unknown unknown unknown es_after_glucose_tolera nce_test glucose_tolerance_test unknown 93993164 unknown unknown unknown _with_glucose_fasting blood_glucose_3_hours_ unknown [id number] unknown unknown unknown after_glucose_tolerance _test blood_glucose_2_hours_ unknown 14631267 unknown unknown unknown after_glucose_tolerance _test blood_glucose_60_minut unknown 78920656 unknown unknown unknown es_after_glucose_tolera nce_test glucose_tolerance_test unknown 69849471 unknown unknown unknown _with_glucose_fasting blood_glucose_3_hours_ unknown 77763238 unknown unknown unknown after_glucose_tolerance _test blood_glucose_2_hours_ unknown 27674910 unknown unknown unknown after_glucose_tolerance _test blood_glucose_60_minut unknown 23148683 unknown unknown unknown es_after_glucose_tolera nce_test glucose_tolerance_test unknown 60794492 unknown unknown unknown _with_glucose_fasting blood_glucose_3_hours_ unknown 02323106 unknown unknown unknown after_glucose_tolerance _test blood_glucose_2_hours_ unknown 91989831 unknown unknown unknown after_glucose_tolerance _test blood_glucose_60_minut unknown 23815277 unknown unknown unknown es_after_glucose_tolera nce_test blood_glucose_1_hour_a unknown 99779439 unknown unknown unknown fter_100_gm_oral_glucos e blood_glucose_1_hour_a unknown 20120504 unknown unknown unknown fter_50_gm_oral_glucose blood_glucose_1_hour_a unknown 34007145 unknown unknown unknown fter_100_gm_oral_glucos e blood_glucose_1_hour_a unknown 44904954 unknown unknown unknown fter_50_gm_oral_glucose T unknown 86925779 unknown unknown unknown GLUCOSE_1H_PP_50GM_DOS unknown 25079031 unknown unknown unknown E blood_glucose_1_hour_a unknown 95035762 unknown unknown unknown fter_100_gm_oral_glucos e blood_glucose_1_hour_a unknown 61057758 unknown unknown unknown fter_50_gm_oral_glucose blood_glucose_1_hour_a unknown 64188324 unknown unknown unknown fter_100_gm_oral_glucos e blood_glucose_1_hour_a unknown 17876646 unknown unknown unknown fter_50_gm_oral_glucose T unknown 44403531 unknown unknown unknown GLUCOSE_1H_PP_50GM_DOS unknown 74656159 unknown unknown unknown E blood_glucose_1_hour_a unknown 24086496 unknown unknown unknown fter_100_gm_oral_glucos e blood_glucose_1_hour_a unknown 22498959 unknown unknown unknown fter_50_gm_oral_glucose blood_glucose_1_hour_a unknown 37019246 unknown unknown unknown fter_100_gm_oral_glucos e blood_glucose_1_hour_a unknown 61470211 unknown unknown unknown fter_50_gm_oral_glucose T unknown 09007290 unknown unknown unknown GLUCOSE_1H_PP_50GM_DOS unknown 88671496 unknown unknown unknown E blood_glucose_1_hour_a unknown 94957493 unknown unknown unknown fter_100_gm_oral_glucos e blood_glucose_1_hour_a unknown 53490126 unknown unknown unknown fter_50_gm_oral_glucose blood_glucose_1_hour_a unknown 91431972 unknown unknown unknown fter_100_gm_oral_glucos e blood_glucose_1_hour_a unknown 26374917 unknown unknown unknown fter_50_gm_oral_glucose T unknown 54405239 unknown unknown unknown GLUCOSE_1H_PP_50GM_DOS unknown 15858569 unknown unknown unknown E blood_glucose_1_hour_a unknown 19724721 unknown unknown unknown fter_100_gm_oral_glucos e blood_glucose_1_hour_a unknown 04698231 unknown unknown unknown fter_50_gm_oral_glucose blood_glucose_1_hour_a unknown 88214440 unknown unknown unknown fter_100_gm_oral_glucos e blood_glucose_1_hour_a unknown 73768060 unknown unknown unknown fter_50_gm_oral_glucose T unknown 29214449 unknown unknown unknown GLUCOSE_1H_PP_50GM_DOS unknown 77436096 unknown unknown unknown E blood_glucose_1_hour_a unknown 10762658 unknown unknown unknown fter_100_gm_oral_glucos e blood_glucose_1_hour_a unknown 53941477 unknown unknown unknown fter_50_gm_oral_glucose blood_glucose_1_hour_a unknown 65929155 unknown unknown unknown fter_100_gm_oral_glucos e blood_glucose_1_hour_a unknown 20772596 unknown unknown unknown fter_50_gm_oral_glucose T unknown 19145720 unknown unknown unknown GLUCOSE_1H_PP_50GM_DOS unknown 00261827 unknown unknown unknown E Candida_glabrata_DNA_P unknown 20211227 unknown unknown unknown resence_in_Vaginal_flui d_by_NAA_with_probe_det ection WBC_urine_on_microscop unknown 53313601 unknown unknown unknown y Urobilinogen_Presence_ unknown 20211227 unknown unknown unknown in_Urine_by_Test_strip Specific_gravity_of_Ur unknown [id number] unknown unknown unknown ine_by_Test_strip Nitrite_Presence_in_Ur unknown [id number] unknown unknown unknown ine_by_Test_strip Leukocyte_esterase_Pre unknown 20211227 unknown unknown unknown sence_in_Urine_by_Test_ strip Ketones_Mass_volume_in unknown 20211227 unknown unknown unknown _Urine_by_Test_strip Color_of_Urine unknown 20211227 unknown unknown unknown Bilirubin.total_Presen unknown 20211227 unknown unknown unknown ce_in_Urine_by_Test_str ip clarity_urine_point unknown 20211227 unknown unknown unk nown pH_study_of_acidity unknown 20211227 unknown unknown unk nown glucose_urine unknown 20211227 unknown unknown unknown leukocyte_esterase_uri unknown 20211227 unknown unknown unknown ne_by_dipstick urobilinogen_urine_sem unknown 20211227 unknown unknown unknown iquantitative_dipstick_ specific_gravity_urine unknown 20211227 unknown unknown unknown nitrite_urine_semiquan unknown 20211227 unknown unknown unknown titative ketones_urine_by_test_ unknown 20211227 unknown unknown unknown strip bilirubin_urine unknown 20211227 unknown unknown unknown urine_color unknown 20211227 unknown unknown unknown Glucose_Mass_volume_in unknown 20211227 unknown unknown unknown _Urine Chlamydia_trachomatis_ unknown 20211227 unknown unknown unknown DNA_Presence_in_Specime n_by_NAA_with_probe_det ection Vaginal_Group_B_Strep_ unknown 20211227 unknown unknown unknown by_Real-Time_PCR Candida_krusei_by_Real unknown 20211227 unknown unknown unknown -Time_PCR chlamydia_DNA_probe unknown 20211227 unknown unknown unk nown TRICHOMONAS_VAGINALIS_ unknown 20211227 unknown unknown unknown DNA_PROBE Candida_glabrata_by_Re unknown 20211227 unknown unknown unknown fu-qezt_XGU_-_fkpilah_m ulture WBC_urine_on_microscop unknown 20211227 unknown unknown unknown y WBC_URINE unknown 20211227 unknown unknown unknown UROBILINOGEN_URINE unknown 20211227 unknown unknown unkn own SPECIFIC_GRAVITY_URINE unknown 20211227 unknown unknown unknown T unknown 20211227 unknown unknown unknown T unknown 20211227 unknown unknown unknown T unknown 20211227 unknown unknown unknown T unknown 20211227 unknown unknown unknown T unknown 20211227 unknown unknown unknown T unknown 20211227 unknown unknown unknown T unknown 20211227 unknown unknown unknown T unknown 20211227 unknown unknown unknown T unknown 20211227 unknown unknown unknown T unknown 20211227 unknown unknown unknown T unknown 20211227 unknown unknown unknown PH_URINE unknown 20211227 unknown unknown unknown NITRITE_URINE unknown 20211227 unknown unknown unknown LEUKOCYTE_ESTERASE_URI unknown 20211227 unknown unknown unknown NE KETONES_URINE_UA_ unknown 20211227 unknown unknown unkno wn GLUCOSE_URINE_UA_ unknown 20211227 unknown unknown unkno wn COLOR_URINE unknown 20211227 unknown unknown unknown CLARITY_URINE unknown 20211227 unknown unknown unknown BILIRUBIN_URINE unknown 20211227 unknown unknown unknown TRICHOMONAS_VAGINALIS_ unknown 20211227 unknown unknown unknown DNA T unknown 20211227 unknown unknown unknown T unknown 20211227 unknown unknown unknown CHLAMYDIA_TRACHOMATIS_ unknown 20211227 unknown unknown unknown DNA CANDIDA_KRUSEI_DNA unknown 20211227 unknown unknown unkn own CANDIDA_GLABRATA_DNA unknown 20211227 unknown unknown un known T unknown 20211227 unknown unknown unknown T unknown 20211227 unknown unknown unknown T unknown 20211227 unknown unknown unknown Candida_glabrata_DNA_P unknown 20211227 unknown unknown unknown resence_in_Vaginal_flui d_by_NAA_with_probe_det ection WBC_urine_on_microscop unknown 20211227 unknown unknown unknown y Neisseria_gonorrhoeae_ unknown 20211227 unknown unknown unknown DNA_probe urine_culture_with_uni unknown 20211227 unknown unknown unknown ts_of_CFunits_mL_ Neisseria_gonorrhoeae_ unknown 20211227 unknown unknown unknown DNA_Presence_in_Specime n_by_NAA_with_probe_det ection Chlamydia_trachomatis_ unknown 20211227 unknown unknown unknown DNA_Presence_in_Specime n_by_NAA_with_probe_det ection Vaginal_Group_B_Strep_ unknown 20211227 unknown unknown unknown by_Real-Time_PCR Candida_krusei_by_Real unknown 20211227 unknown unknown unknown -Time_PCR chlamydia_DNA_probe unknown 20211227 unknown unknown unk nown TRICHOMONAS_VAGINALIS_ unknown 20211227 unknown unknown unknown DNA_PROBE Candida_glabrata_by_Re unknown 20211227 unknown unknown unknown ps-xeql_QXD_-_fqpubay_y ulture WBC_urine_on_microscop unknown 20211227 unknown unknown unknown y WBC_URINE unknown 20211227 unknown unknown unknown T unknown 20211227 unknown unknown unknown TRICHOMONAS_VAGINALIS_ unknown 20211227 unknown unknown unknown DNA T unknown 20211227 unknown unknown unknown T unknown 20211227 unknown unknown unknown CHLAMYDIA_TRACHOMATIS_ unknown 20211227 unknown unknown unknown DNA CANDIDA_KRUSEI_DNA unknown 20211227 unknown unknown unkn own CANDIDA_GLABRATA_DNA unknown 20211227 unknown unknown un known T unknown 20211227 unknown unknown unknown T unknown 20211227 unknown unknown unknown T unknown 20211227 unknown unknown unknown Candida_glabrata_DNA_P unknown 20211227 unknown unknown unknown resence_in_Vaginal_flui d_by_NAA_with_probe_det ection WBC_urine_on_microscop unknown 20211227 unknown unknown unknown y Urobilinogen_Presence_ unknown 20211227 unknown unknown unknown in_Urine_by_Test_strip Specific_gravity_of_Ur unknown 20211227 unknown unknown unknown ine_by_Test_strip Nitrite_Presence_in_Ur unknown 20211227 unknown unknown unknown ine_by_Test_strip Leukocyte_esterase_Pre unknown 20211227 unknown unknown unknown sence_in_Urine_by_Test_ strip Ketones_Mass_volume_in unknown 20211227 unknown unknown unknown _Urine_by_Test_strip Color_of_Urine unknown 20211227 unknown unknown unknown Bilirubin.total_Presen unknown 20211227 unknown unknown unknown ce_in_Urine_by_Test_str ip clarity_urine_point unknown 20211227 unknown unknown unk nown pH_study_of_acidity unknown 20211227 unknown unknown unk nown glucose_urine unknown 20211227 unknown unknown unknown leukocyte_esterase_uri unknown 20211227 unknown unknown unknown ne_by_dipstick urobilinogen_urine_sem unknown 20211227 unknown unknown unknown iquantitative_dipstick_ specific_gravity_urine unknown 20211227 unknown unknown unknown nitrite_urine_semiquan unknown 20211227 unknown unknown unknown titative ketones_urine_by_test_ unknown 20211227 unknown unknown unknown strip bilirubin_urine unknown 20211227 unknown unknown unknown urine_color unknown 20211227 unknown unknown unknown Neisseria_gonorrhoeae_ unknown 20211227 unknown unknown unknown DNA_probe urine_culture_with_uni unknown 20211227 unknown unknown unknown ts_of_CFunits_mL_ Neisseria_gonorrhoeae_ unknown 20211227 unknown unknown unknown DNA_Presence_in_Specime n_by_NAA_with_probe_det ection Glucose_Mass_volume_in unknown 20211227 unknown unknown unknown _Urine Chlamydia_trachomatis_ unknown 20211227 unknown unknown unknown DNA_Presence_in_Specime n_by_NAA_with_probe_det ection Vaginal_Group_B_Strep_ unknown 20211227 unknown unknown unknown by_Real-Time_PCR Candida_krusei_by_Real unknown 20211227 unknown unknown unknown -Time_PCR chlamydia_DNA_probe unknown 20211227 unknown unknown unk nown TRICHOMONAS_VAGINALIS_ unknown 20211227 unknown unknown unknown DNA_PROBE Candida_glabrata_by_Re unknown 20211227 unknown unknown unknown oy-vrxl_XHF_-_juajteo_f ulture WBC_urine_on_microscop unknown 20211227 unknown unknown unknown y WBC_URINE unknown 20211227 unknown unknown unknown UROBILINOGEN_URINE unknown 20211227 unknown unknown unkn own SPECIFIC_GRAVITY_URINE unknown 20211227 unknown unknown unknown T unknown 20211227 unknown unknown unknown T unknown 20211227 unknown unknown unknown T unknown 20211227 unknown unknown unknown T unknown 20211227 unknown unknown unknown T unknown 20211227 unknown unknown unknown T unknown 20211227 unknown unknown unknown T unknown 20211227 unknown unknown unknown T unknown 20211227 unknown unknown unknown T unknown 20211227 unknown unknown unknown T unknown 20211227 unknown unknown unknown T unknown 20211227 unknown unknown unknown PH_URINE unknown 20211227 unknown unknown unknown NITRITE_URINE unknown 20211227 unknown unknown unknown LEUKOCYTE_ESTERASE_URI unknown 20211227 unknown unknown unknown NE KETONES_URINE_UA_ unknown 20211227 unknown unknown unkno wn GLUCOSE_URINE_UA_ unknown 20211227 unknown unknown unkno wn COLOR_URINE unknown 20211227 unknown unknown unknown CLARITY_URINE unknown 20211227 unknown unknown unknown BILIRUBIN_URINE unknown 20211227 unknown unknown unknown TRICHOMONAS_VAGINALIS_ unknown 20211227 unknown unknown unknown DNA T unknown 20211227 unknown unknown unknown T unknown 20211227 unknown unknown unknown CHLAMYDIA_TRACHOMATIS_ unknown 20211227 unknown unknown unknown DNA CANDIDA_KRUSEI_DNA unknown 20211227 unknown unknown unkn own CANDIDA_GLABRATA_DNA unknown 20211227 unknown unknown un known T unknown 20211227 unknown unknown unknown T unknown 20211227 unknown unknown unknown T unknown 20211227 unknown unknown unknown Candida_glabrata_DNA_P unknown 20211227 unknown unknown unknown resence_in_Vaginal_flui d_by_NAA_with_probe_det ection WBC_urine_on_microscop unknown 20211227 unknown unknown unknown y Urobilinogen_Presence_ unknown 20211227 unknown unknown unknown in_Urine_by_Test_strip Specific_gravity_of_Ur unknown 20211227 unknown unknown unknown ine_by_Test_strip Nitrite_Presence_in_Ur unknown 20211227 unknown unknown unknown ine_by_Test_strip Leukocyte_esterase_Pre unknown 20211227 unknown unknown unknown sence_in_Urine_by_Test_ strip Ketones_Mass_volume_in unknown 20211227 unknown unknown unknown _Urine_by_Test_strip Color_of_Urine unknown 20211227 unknown unknown unknown Bilirubin.total_Presen unknown 20211227 unknown unknown unknown ce_in_Urine_by_Test_str ip clarity_urine_point unknown 20211227 unknown unknown unk nown pH_study_of_acidity unknown 20211227 unknown unknown unk nown glucose_urine unknown 20211227 unknown unknown unknown leukocyte_esterase_uri unknown 20211227 unknown unknown unknown ne_by_dipstick urobilinogen_urine_sem unknown 20211227 unknown unknown unknown iquantitative_dipstick_ specific_gravity_urine unknown 20211227 unknown unknown unknown nitrite_urine_semiquan unknown 20211227 unknown unknown unknown titative ketones_urine_by_test_ unknown 20211227 unknown unknown unknown strip bilirubin_urine unknown 20211227 unknown unknown unknown urine_color unknown 20211227 unknown unknown unknown Glucose_Mass_volume_in unknown 20211227 unknown unknown unknown _Urine Chlamydia_trachomatis_ unknown 20211227 unknown unknown unknown DNA_Presence_in_Specime n_by_NAA_with_probe_det ection Vaginal_Group_B_Strep_ unknown 20211227 unknown unknown unknown by_Real-Time_PCR Candida_krusei_by_Real unknown 20211227 unknown unknown unknown -Time_PCR chlamydia_DNA_probe unknown 20211227 unknown unknown unk nown TRICHOMONAS_VAGINALIS_ unknown 20211227 unknown unknown unknown DNA_PROBE Candida_glabrata_by_Re unknown 20211227 unknown unknown unknown aj-jxlh_JEM_-_unlgwvv_s ulture WBC_urine_on_microscop unknown 20211227 unknown unknown unknown y WBC_URINE unknown 20211227 unknown unknown unknown UROBILINOGEN_URINE unknown 20211227 unknown unknown unkn own SPECIFIC_GRAVITY_URINE unknown 20211227 unknown unknown unknown T unknown 20211227 unknown unknown unknown T unknown 20211227 unknown unknown unknown T unknown 20211227 unknown unknown unknown T unknown 20211227 unknown unknown unknown T unknown 20211227 unknown unknown unknown T unknown 20211227 unknown unknown unknown T unknown 20211227 unknown unknown unknown T unknown 20211227 unknown unknown unknown T unknown 20211227 unknown unknown unknown T unknown 20211227 unknown unknown unknown T unknown 20211227 unknown unknown unknown PH_URINE unknown 20211227 unknown unknown unknown NITRITE_URINE unknown 20211227 unknown unknown unknown LEUKOCYTE_ESTERASE_URI unknown 20211227 unknown unknown unknown NE KETONES_URINE_UA_ unknown 20211227 unknown unknown unkno wn GLUCOSE_URINE_UA_ unknown 20211227 unknown unknown unkno wn COLOR_URINE unknown 20211227 unknown unknown unknown CLARITY_URINE unknown 20211227 unknown unknown unknown BILIRUBIN_URINE unknown 20211227 unknown unknown unknown TRICHOMONAS_VAGINALIS_ unknown 20211227 unknown unknown unknown DNA T unknown 20211227 unknown unknown unknown T unknown 20211227 unknown unknown unknown CHLAMYDIA_TRACHOMATIS_ unknown 20211227 unknown unknown unknown DNA CANDIDA_KRUSEI_DNA unknown 20211227 unknown unknown unkn own CANDIDA_GLABRATA_DNA unknown 20211227 unknown unknown un known T unknown 20211227 unknown unknown unknown T unknown 20211227 unknown unknown unknown T unknown 20211227 unknown unknown unknown Candida_glabrata_DNA_P unknown 20211227 unknown unknown unknown resence_in_Vaginal_flui d_by_NAA_with_probe_det ection WBC_urine_on_microscop unknown 20211227 unknown unknown unknown y Urobilinogen_Presence_ unknown 20211227 unknown unknown unknown in_Urine_by_Test_strip Specific_gravity_of_Ur unknown 20211227 unknown unknown unknown ine_by_Test_strip Nitrite_Presence_in_Ur unknown 20211227 unknown unknown unknown ine_by_Test_strip Leukocyte_esterase_Pre unknown 20211227 unknown unknown unknown sence_in_Urine_by_Test_ strip Ketones_Mass_volume_in unknown 20211227 unknown unknown unknown _Urine_by_Test_strip Color_of_Urine unknown 20211227 unknown unknown unknown Bilirubin.total_Presen unknown 20211227 unknown unknown unknown ce_in_Urine_by_Test_str ip clarity_urine_point unknown 20211227 unknown unknown unk nown pH_study_of_acidity unknown 20211227 unknown unknown unk nown glucose_urine unknown 20211227 unknown unknown unknown leukocyte_esterase_uri unknown 20211227 unknown unknown unknown ne_by_dipstick urobilinogen_urine_sem unknown 20211227 unknown unknown unknown iquantitative_dipstick_ specific_gravity_urine unknown 20211227 unknown unknown unknown nitrite_urine_semiquan unknown 20211227 unknown unknown unknown titative ketones_urine_by_test_ unknown 20211227 unknown unknown unknown strip bilirubin_urine unknown 20211227 unknown unknown unknown urine_color unknown 20211227 unknown unknown unknown Glucose_Mass_volume_in unknown 20211227 unknown unknown unknown _Urine Chlamydia_trachomatis_ unknown 20211227 unknown unknown unknown DNA_Presence_in_Specime n_by_NAA_with_probe_det ection Vaginal_Group_B_Strep_ unknown 20211227 unknown unknown unknown by_Real-Time_PCR Candida_krusei_by_Real unknown 20211227 unknown unknown unknown -Time_PCR chlamydia_DNA_probe unknown 20211227 unknown unknown unk nown TRICHOMONAS_VAGINALIS_ unknown 20211227 unknown unknown unknown DNA_PROBE Candida_glabrata_by_Re unknown 20211227 unknown unknown unknown bs-plex_ONT_-_ogrndzc_d ulture WBC_urine_on_microscop unknown 20211227 unknown unknown unknown y WBC_URINE unknown 20211227 unknown unknown unknown UROBILINOGEN_URINE unknown 20211227 unknown unknown unkn own SPECIFIC_GRAVITY_URINE unknown 20211227 unknown unknown unknown T unknown 20211227 unknown unknown unknown T unknown 20211227 unknown unknown unknown T unknown 20211227 unknown unknown unknown T unknown 20211227 unknown unknown unknown T unknown 20211227 unknown unknown unknown T unknown 20211227 unknown unknown unknown T unknown 20211227 unknown unknown unknown T unknown 20211227 unknown unknown unknown T unknown 20211227 unknown unknown unknown T unknown 20211227 unknown unknown unknown T unknown 20211227 unknown unknown unknown PH_URINE unknown 20211227 unknown unknown unknown NITRITE_URINE unknown 20211227 unknown unknown unknown LEUKOCYTE_ESTERASE_URI unknown 20211227 unknown unknown unknown NE KETONES_URINE_UA_ unknown 20211227 unknown unknown unkno wn GLUCOSE_URINE_UA_ unknown 20211227 unknown unknown unkno wn COLOR_URINE unknown 20211227 unknown unknown unknown CLARITY_URINE unknown 20211227 unknown unknown unknown BILIRUBIN_URINE unknown 20211227 unknown unknown unknown TRICHOMONAS_VAGINALIS_ unknown 20211227 unknown unknown unknown DNA T unknown 20211227 unknown unknown unknown T unknown 20211227 unknown unknown unknown CHLAMYDIA_TRACHOMATIS_ unknown 20211227 unknown unknown unknown DNA CANDIDA_KRUSEI_DNA unknown 20211227 unknown unknown unkn own CANDIDA_GLABRATA_DNA unknown 20211227 unknown unknown un known T unknown 20211227 unknown unknown unknown T unknown 20211227 unknown unknown unknown T unknown 20211227 unknown unknown unknown Candida_glabrata_DNA_P unknown 20211227 unknown unknown unknown resence_in_Vaginal_flui d_by_NAA_with_probe_det ection WBC_urine_on_microscop unknown 20211227 unknown unknown unknown y Urobilinogen_Presence_ unknown 20211227 unknown unknown unknown in_Urine_by_Test_strip Specific_gravity_of_Ur unknown 20211227 unknown unknown unknown ine_by_Test_strip Nitrite_Presence_in_Ur unknown 20211227 unknown unknown unknown ine_by_Test_strip Leukocyte_esterase_Pre unknown 20211227 unknown unknown unknown sence_in_Urine_by_Test_ strip Ketones_Mass_volume_in unknown 20211227 unknown unknown unknown _Urine_by_Test_strip Color_of_Urine unknown 20211227 unknown unknown unknown Bilirubin.total_Presen unknown 20211227 unknown unknown unknown ce_in_Urine_by_Test_str ip clarity_urine_point unknown 20211227 unknown unknown unk nown pH_study_of_acidity unknown 20211227 unknown unknown unk nown glucose_urine unknown 20211227 unknown unknown unknown leukocyte_esterase_uri unknown 20211227 unknown unknown unknown ne_by_dipstick urobilinogen_urine_sem unknown 20211227 unknown unknown unknown iquantitative_dipstick_ specific_gravity_urine unknown 20211227 unknown unknown unknown nitrite_urine_semiquan unknown 20211227 unknown unknown unknown titative ketones_urine_by_test_ unknown 20211227 unknown unknown unknown strip bilirubin_urine unknown 20211227 unknown unknown unknown urine_color unknown 20211227 unknown unknown unknown Neisseria_gonorrhoeae_ unknown 20211227 unknown unknown unknown DNA_probe urine_culture_with_uni unknown 20211227 unknown unknown unknown ts_of_CFunits_mL_ Neisseria_gonorrhoeae_ unknown 20211227 unknown unknown unknown DNA_Presence_in_Specime n_by_NAA_with_probe_det ection Glucose_Mass_volume_in unknown 20211227 unknown unknown unknown _Urine Chlamydia_trachomatis_ unknown 20211227 unknown unknown unknown DNA_Presence_in_Specime n_by_NAA_with_probe_det ection Vaginal_Group_B_Strep_ unknown 20211227 unknown unknown unknown by_Real-Time_PCR Candida_krusei_by_Real unknown 20211227 unknown unknown unknown -Time_PCR chlamydia_DNA_probe unknown 20211227 unknown unknown unk nown TRICHOMONAS_VAGINALIS_ unknown 20211227 unknown unknown unknown DNA_PROBE Candida_glabrata_by_Re unknown 20211227 unknown unknown unknown ky-dpey_GDD_-_iikisut_f ulture WBC_urine_on_microscop unknown 20211227 unknown unknown unknown y WBC_URINE unknown 20211227 unknown unknown unknown UROBILINOGEN_URINE unknown 20211227 unknown unknown unkn own SPECIFIC_GRAVITY_URINE unknown 20211227 unknown unknown unknown T unknown 20211227 unknown unknown unknown T unknown 20211227 unknown unknown unknown T unknown 20211227 unknown unknown unknown T unknown 20211227 unknown unknown unknown T unknown 20211227 unknown unknown unknown T unknown 20211227 unknown unknown unknown T unknown 20211227 unknown unknown unknown T unknown 20211227 unknown unknown unknown T unknown 20211227 unknown unknown unknown T unknown 20211227 unknown unknown unknown T unknown 20211227 unknown unknown unknown PH_URINE unknown 20211227 unknown unknown unknown NITRITE_URINE unknown 20211227 unknown unknown unknown LEUKOCYTE_ESTERASE_URI unknown 20211227 unknown unknown unknown NE KETONES_URINE_UA_ unknown 20211227 unknown unknown unkno wn GLUCOSE_URINE_UA_ unknown 20211227 unknown unknown unkno wn COLOR_URINE unknown 20211227 unknown unknown unknown CLARITY_URINE unknown 20211227 unknown unknown unknown BILIRUBIN_URINE unknown 20211227 unknown unknown unknown TRICHOMONAS_VAGINALIS_ unknown 20211227 unknown unknown unknown DNA T unknown 20211227 unknown unknown unknown T unknown 20211227 unknown unknown unknown CHLAMYDIA_TRACHOMATIS_ unknown 20211227 unknown unknown unknown DNA CANDIDA_KRUSEI_DNA unknown 20211227 unknown unknown unkn own CANDIDA_GLABRATA_DNA unknown 20211227 unknown unknown un known T unknown 20211227 unknown unknown unknown T unknown 20211227 unknown unknown unknown T unknown 20211227 unknown unknown unknown Candida_glabrata_DNA_P unknown 20211227 unknown unknown unknown resence_in_Vaginal_flui d_by_NAA_with_probe_det ection WBC_urine_on_microscop unknown 20211227 unknown unknown unknown y Urobilinogen_Presence_ unknown 20211227 unknown unknown unknown in_Urine_by_Test_strip Specific_gravity_of_Ur unknown 20211227 unknown unknown unknown ine_by_Test_strip Nitrite_Presence_in_Ur unknown 20211227 unknown unknown unknown ine_by_Test_strip Leukocyte_esterase_Pre unknown 20211227 unknown unknown unknown sence_in_Urine_by_Test_ strip Ketones_Mass_volume_in unknown 20211227 unknown unknown unknown _Urine_by_Test_strip Color_of_Urine unknown 20211227 unknown unknown unknown Bilirubin.total_Presen unknown 20211227 unknown unknown unknown ce_in_Urine_by_Test_str ip clarity_urine_point unknown 20211227 unknown unknown unk nown pH_study_of_acidity unknown 20211227 unknown unknown unk nown glucose_urine unknown 20211227 unknown unknown unknown leukocyte_esterase_uri unknown 20211227 unknown unknown unknown ne_by_dipstick urobilinogen_urine_sem unknown 20211227 unknown unknown unknown iquantitative_dipstick_ specific_gravity_urine unknown 20211227 unknown unknown unknown nitrite_urine_semiquan unknown 20211227 unknown unknown unknown titative ketones_urine_by_test_ unknown 20211227 unknown unknown unknown strip bilirubin_urine unknown 20211227 unknown unknown unknown urine_color unknown 20211227 unknown unknown unknown urine_culture_with_uni unknown 20211227 unknown unknown unknown ts_of_CFunits_mL_ Glucose_Mass_volume_in unknown 20211227 unknown unknown unknown _Urine Chlamydia_trachomatis_ unknown 20211227 unknown unknown unknown DNA_Presence_in_Specime n_by_NAA_with_probe_det ection Vaginal_Group_B_Strep_ unknown 20211227 unknown unknown unknown by_Real-Time_PCR Candida_krusei_by_Real unknown 20211227 unknown unknown unknown -Time_PCR chlamydia_DNA_probe unknown 20211227 unknown unknown unk nown TRICHOMONAS_VAGINALIS_ unknown 20211227 unknown unknown unknown DNA_PROBE Candida_glabrata_by_Re unknown 20211227 unknown unknown unknown eb-jrez_BLZ_-_robqcwk_g ulture WBC_urine_on_microscop unknown 20211227 unknown unknown unknown y WBC_URINE unknown 20211227 unknown unknown unknown UROBILINOGEN_URINE unknown 20211227 unknown unknown unkn own SPECIFIC_GRAVITY_URINE unknown 20211227 unknown unknown unknown T unknown 20211227 unknown unknown unknown T unknown 20211227 unknown unknown unknown T unknown 20211227 unknown unknown unknown T unknown 20211227 unknown unknown unknown T unknown 20211227 unknown unknown unknown T unknown 20211227 unknown unknown unknown T unknown 20211227 unknown unknown unknown T unknown 20211227 unknown unknown unknown T unknown 20211227 unknown unknown unknown T unknown 20211227 unknown unknown unknown T unknown 20211227 unknown unknown unknown PH_URINE unknown 20211227 unknown unknown unknown NITRITE_URINE unknown 20211227 unknown unknown unknown LEUKOCYTE_ESTERASE_URI unknown 20211227 unknown unknown unknown NE KETONES_URINE_UA_ unknown 20211227 unknown unknown unkno wn GLUCOSE_URINE_UA_ unknown 20211227 unknown unknown unkno wn COLOR_URINE unknown 20211227 unknown unknown unknown CLARITY_URINE unknown 20211227 unknown unknown unknown BILIRUBIN_URINE unknown 20211227 unknown unknown unknown TRICHOMONAS_VAGINALIS_ unknown 20211227 unknown unknown unknown DNA T unknown 20211227 unknown unknown unknown T unknown 20211227 unknown unknown unknown CHLAMYDIA_TRACHOMATIS_ unknown 20211227 unknown unknown unknown DNA CANDIDA_KRUSEI_DNA unknown 20211227 unknown unknown unkn own CANDIDA_GLABRATA_DNA unknown 20211227 unknown unknown un known T unknown 20211227 unknown unknown unknown T unknown 20211227 unknown unknown unknown T unknown 20211227 unknown unknown unknown Herpes_Simplex_Virus_G unknown 20211216 unknown unknown unknown enital Herpes_Simplex_Virus_G unknown 20211216 unknown unknown unknown enital Herpes_Simplex_Virus_G unknown 20211216 unknown unknown unknown enital Herpes_Simplex_Virus_G unknown 20211216 unknown unknown unknown enital Herpes_Simplex_Virus_G unknown 20211216 unknown unknown unknown enital Herpes_Simplex_Virus_G unknown 20211216 unknown unknown unknown enital Herpes_Simplex_Virus_G unknown 20211216 unknown unknown unknown enital Candida_glabrata_DNA_P unknown 20211207 unknown unknown unknown resence_in_Vaginal_flui d_by_NAA_with_probe_det ection WBC_urine_on_microscop unknown 20211207 unknown unknown unknown y Urobilinogen_Presence_ unknown 20211207 unknown unknown unknown in_Urine_by_Test_strip Specific_gravity_of_Ur unknown 20211207 unknown unknown unknown ine_by_Test_strip Nitrite_Presence_in_Ur unknown 20211207 unknown unknown unknown ine_by_Test_strip Leukocyte_esterase_Pre unknown 20211207 unknown unknown unknown sence_in_Urine_by_Test_ strip Ketones_Mass_volume_in unknown 20211207 unknown unknown unknown _Urine_by_Test_strip Color_of_Urine unknown 20211207 unknown unknown unknown Bilirubin.total_Presen unknown 20211207 unknown unknown unknown ce_in_Urine_by_Test_str ip clarity_urine_point unknown 20211207 unknown unknown unk nown pH_study_of_acidity unknown 20211207 unknown unknown unk nown glucose_urine unknown 20211207 unknown unknown unknown leukocyte_esterase_uri unknown 20211207 unknown unknown unknown ne_by_dipstick urobilinogen_urine_sem unknown 20211207 unknown unknown unknown iquantitative_dipstick_ specific_gravity_urine unknown 20211207 unknown unknown unknown nitrite_urine_semiquan unknown 20211207 unknown unknown unknown titative ketones_urine_by_test_ unknown 20211207 unknown unknown unknown strip bilirubin_urine unknown 20211207 unknown unknown unknown urine_color unknown 20211207 unknown unknown unknown Glucose_Mass_volume_in unknown 20211207 unknown unknown unknown _Urine Chlamydia_trachomatis_ unknown 20211207 unknown unknown unknown DNA_Presence_in_Specime n_by_NAA_with_probe_det ection Candida_krusei_by_Real unknown 20211207 unknown unknown unknown -Time_PCR chlamydia_DNA_probe unknown 20211207 unknown unknown unk nown TRICHOMONAS_VAGINALIS_ unknown 20211207 unknown unknown unknown DNA_PROBE Candida_glabrata_by_Re unknown 20211207 unknown unknown unknown pd-oeec_IQY_-_xgoyazh_h ulture WBC_urine_on_microscop unknown 20211207 unknown unknown unknown y WBC_URINE unknown 20211207 unknown unknown unknown UROBILINOGEN_URINE unknown 20211207 unknown unknown unkn own SPECIFIC_GRAVITY_URINE unknown 20211207 unknown unknown unknown T unknown 20211207 unknown unknown unknown T unknown 20211207 unknown unknown unknown T unknown 20211207 unknown unknown unknown T unknown 20211207 unknown unknown unknown T unknown 20211207 unknown unknown unknown T unknown 20211207 unknown unknown unknown T unknown 20211207 unknown unknown unknown T unknown 20211207 unknown unknown unknown T unknown 20211207 unknown unknown unknown T unknown 20211207 unknown unknown unknown T unknown 20211207 unknown unknown unknown PH_URINE unknown 20211207 unknown unknown unknown NITRITE_URINE unknown 20211207 unknown unknown unknown LEUKOCYTE_ESTERASE_URI unknown 20211207 unknown unknown unknown NE KETONES_URINE_UA_ unknown 20211207 unknown unknown unkno wn GLUCOSE_URINE_UA_ unknown 20211207 unknown unknown unkno wn COLOR_URINE unknown 20211207 unknown unknown unknown CLARITY_URINE unknown 20211207 unknown unknown unknown BILIRUBIN_URINE unknown 20211207 unknown unknown unknown TRICHOMONAS_VAGINALIS_ unknown 20211207 unknown unknown unknown DNA T unknown 20211207 unknown unknown unknown CHLAMYDIA_TRACHOMATIS_ unknown 20211207 unknown unknown unknown DNA CANDIDA_KRUSEI_DNA unknown 20211207 unknown unknown unkn own CANDIDA_GLABRATA_DNA unknown 20211207 unknown unknown un known T unknown 20211207 unknown unknown unknown T unknown 20211207 unknown unknown unknown T unknown 20211207 unknown unknown unknown Candida_glabrata_DNA_P unknown 20211207 unknown unknown unknown resence_in_Vaginal_flui d_by_NAA_with_probe_det ection WBC_urine_on_microscop unknown 20211207 unknown unknown unknown y Urobilinogen_Presence_ unknown 20211207 unknown unknown unknown in_Urine_by_Test_strip Specific_gravity_of_Ur unknown 20211207 unknown unknown unknown ine_by_Test_strip Nitrite_Presence_in_Ur unknown 20211207 unknown unknown unknown ine_by_Test_strip Leukocyte_esterase_Pre unknown 20211207 unknown unknown unknown sence_in_Urine_by_Test_ strip Ketones_Mass_volume_in unknown 20211207 unknown unknown unknown _Urine_by_Test_strip Color_of_Urine unknown 20211207 unknown unknown unknown Bilirubin.total_Presen unknown 20211207 unknown unknown unknown ce_in_Urine_by_Test_str ip clarity_urine_point unknown 20211207 unknown unknown unk nown pH_study_of_acidity unknown 20211207 unknown unknown unk nown glucose_urine unknown 20211207 unknown unknown unknown leukocyte_esterase_uri unknown 20211207 unknown unknown unknown ne_by_dipstick urobilinogen_urine_sem unknown 20211207 unknown unknown unknown iquantitative_dipstick_ specific_gravity_urine unknown 20211207 unknown unknown unknown nitrite_urine_semiquan unknown 20211207 unknown unknown unknown titative ketones_urine_by_test_ unknown 20211207 unknown unknown unknown strip bilirubin_urine unknown 20211207 unknown unknown unknown urine_color unknown 20211207 unknown unknown unknown Glucose_Mass_volume_in unknown 20211207 unknown unknown unknown _Urine Chlamydia_trachomatis_ unknown 20211207 unknown unknown unknown DNA_Presence_in_Specime n_by_NAA_with_probe_det ection Candida_krusei_by_Real unknown 20211207 unknown unknown unknown -Time_PCR chlamydia_DNA_probe unknown 20211207 unknown unknown unk nown TRICHOMONAS_VAGINALIS_ unknown 20211207 unknown unknown unknown DNA_PROBE Candida_glabrata_by_Re unknown 20211207 unknown unknown unknown as-fbgr_ONI_-_mtwvfai_p ulture WBC_urine_on_microscop unknown 20211207 unknown unknown unknown y WBC_URINE unknown 20211207 unknown unknown unknown UROBILINOGEN_URINE unknown 20211207 unknown unknown unkn own SPECIFIC_GRAVITY_URINE unknown 20211207 unknown unknown unknown T unknown 20211207 unknown unknown unknown T unknown 20211207 unknown unknown unknown T unknown 20211207 unknown unknown unknown T unknown 20211207 unknown unknown unknown T unknown 20211207 unknown unknown unknown T unknown 20211207 unknown unknown unknown T unknown 20211207 unknown unknown unknown T unknown 20211207 unknown unknown unknown T unknown 20211207 unknown unknown unknown T unknown 20211207 unknown unknown unknown T unknown 20211207 unknown unknown unknown PH_URINE unknown 20211207 unknown unknown unknown NITRITE_URINE unknown 20211207 unknown unknown unknown LEUKOCYTE_ESTERASE_URI unknown 20211207 unknown unknown unknown NE KETONES_URINE_UA_ unknown 20211207 unknown unknown unkno wn GLUCOSE_URINE_UA_ unknown 20211207 unknown unknown unkno wn COLOR_URINE unknown 20211207 unknown unknown unknown CLARITY_URINE unknown 20211207 unknown unknown unknown BILIRUBIN_URINE unknown 20211207 unknown unknown unknown TRICHOMONAS_VAGINALIS_ unknown 20211207 unknown unknown unknown DNA T unknown 20211207 unknown unknown unknown CHLAMYDIA_TRACHOMATIS_ unknown 20211207 unknown unknown unknown DNA CANDIDA_KRUSEI_DNA unknown 20211207 unknown unknown unkn own CANDIDA_GLABRATA_DNA unknown 20211207 unknown unknown un known T unknown 20211207 unknown unknown unknown T unknown 20211207 unknown unknown unknown T unknown 20211207 unknown unknown unknown Candida_glabrata_DNA_P unknown 20211207 unknown unknown unknown resence_in_Vaginal_flui d_by_NAA_with_probe_det ection WBC_urine_on_microscop unknown 20211207 unknown unknown unknown y Urobilinogen_Presence_ unknown 20211207 unknown unknown unknown in_Urine_by_Test_strip Specific_gravity_of_Ur unknown 20211207 unknown unknown unknown ine_by_Test_strip Nitrite_Presence_in_Ur unknown 20211207 unknown unknown unknown ine_by_Test_strip Leukocyte_esterase_Pre unknown 20211207 unknown unknown unknown sence_in_Urine_by_Test_ strip Ketones_Mass_volume_in unknown 20211207 unknown unknown unknown _Urine_by_Test_strip Color_of_Urine unknown 20211207 unknown unknown unknown Bilirubin.total_Presen unknown 20211207 unknown unknown unknown ce_in_Urine_by_Test_str ip clarity_urine_point unknown 20211207 unknown unknown unk nown pH_study_of_acidity unknown 20211207 unknown unknown unk nown glucose_urine unknown 20211207 unknown unknown unknown leukocyte_esterase_uri unknown 20211207 unknown unknown unknown ne_by_dipstick urobilinogen_urine_sem unknown 20211207 unknown unknown unknown iquantitative_dipstick_ specific_gravity_urine unknown 20211207 unknown unknown unknown nitrite_urine_semiquan unknown 20211207 unknown unknown unknown titative ketones_urine_by_test_ unknown 20211207 unknown unknown unknown strip bilirubin_urine unknown 20211207 unknown unknown unknown urine_color unknown 20211207 unknown unknown unknown Glucose_Mass_volume_in unknown 20211207 unknown unknown unknown _Urine Chlamydia_trachomatis_ unknown 20211207 unknown unknown unknown DNA_Presence_in_Specime n_by_NAA_with_probe_det ection Candida_krusei_by_Real unknown 20211207 unknown unknown unknown -Time_PCR chlamydia_DNA_probe unknown 20211207 unknown unknown unk nown TRICHOMONAS_VAGINALIS_ unknown 20211207 unknown unknown unknown DNA_PROBE Candida_glabrata_by_Re unknown 20211207 unknown unknown unknown ya-poul_MKX_-_fkfzkgi_x ulture WBC_urine_on_microscop unknown 20211207 unknown unknown unknown y WBC_URINE unknown 20211207 unknown unknown unknown UROBILINOGEN_URINE unknown 20211207 unknown unknown unkn own SPECIFIC_GRAVITY_URINE unknown 20211207 unknown unknown unknown T unknown 20211207 unknown unknown unknown T unknown 20211207 unknown unknown unknown T unknown 20211207 unknown unknown unknown T unknown 20211207 unknown unknown unknown T unknown 20211207 unknown unknown unknown T unknown 20211207 unknown unknown unknown T unknown 20211207 unknown unknown unknown T unknown 20211207 unknown unknown unknown T unknown 20211207 unknown unknown unknown T unknown 20211207 unknown unknown unknown T unknown 20211207 unknown unknown unknown PH_URINE unknown 20211207 unknown unknown unknown NITRITE_URINE unknown 20211207 unknown unknown unknown LEUKOCYTE_ESTERASE_URI unknown 20211207 unknown unknown unknown NE KETONES_URINE_UA_ unknown 20211207 unknown unknown unkno wn GLUCOSE_URINE_UA_ unknown 20211207 unknown unknown unkno wn COLOR_URINE unknown 20211207 unknown unknown unknown CLARITY_URINE unknown 20211207 unknown unknown unknown BILIRUBIN_URINE unknown 20211207 unknown unknown unknown TRICHOMONAS_VAGINALIS_ unknown 20211207 unknown unknown unknown DNA T unknown 20211207 unknown unknown unknown CHLAMYDIA_TRACHOMATIS_ unknown 20211207 unknown unknown unknown DNA CANDIDA_KRUSEI_DNA unknown 20211207 unknown unknown unkn own CANDIDA_GLABRATA_DNA unknown 20211207 unknown unknown un known T unknown 20211207 unknown unknown unknown T unknown 20211207 unknown unknown unknown T unknown 20211207 unknown unknown unknown Candida_glabrata_DNA_P unknown 20211207 unknown unknown unknown resence_in_Vaginal_flui d_by_NAA_with_probe_det ection Candida_krusei_by_Real unknown 20211207 unknown unknown unknown -Time_PCR Candida_glabrata_by_Re unknown 20211207 unknown unknown unknown qf-hgnn_[facility]_-_nqbeogp_o ulture CANDIDA_KRUSEI_DNA unknown 20211207 unknown unknown unkn own CANDIDA_GLABRATA_DNA unknown 20211207 unknown unknown un known T unknown 20211207 unknown unknown unknown T unknown 20211207 unknown unknown unknown facility observation status value reference units lab code abn ormal line range notes All Vaginal_Grou unknown NEGATIVE unknown _[id number] unkn own unknown p_B_Strep_by_ Real-Time_PCR All T unknown NEGATIVE unknown GBS.PEN unknown u nknown All WBC_urine_on unknown 4-5 /HPF unknown _5821-4 unkn own unknown _microscopy All Urobilinogen unknown 0.2 unknown _5818-0 unknow n unknown _Presence_in_ (NORMAL) Urine_by_Test _strip All Specific_gra unknown >=1.030 unknown _5811-5 unkno wn unknown vity_of_Urine _by_Test_stri p All Nitrite_Pres unknown NEGATIVE unknown _5802-4 unkn own unknown ence_in_Urine _by_Test_stri p All Leukocyte_es unknown NEGATIVE unknown _5799-2 unkn own unknown terase_Presen ce_in_Urine_b y_Test_strip All Ketones_Mass unknown NEGATIVE unknown _5797-6 unkn own unknown _volume_in_Ur ine_by_Test_s trip All Color_of_Uri unknown YELLOW unknown _5778-6 unknow n unknown ne All Bilirubin.to unknown NEGATIVE unknown _5770-3 unkn own unknown tal_Presence_ in_Urine_by_T est_strip All clarity_urin unknown CLEAR unknown _5589 unknown unknown e_point All pH_study_of_ unknown 6.0 unknown _51641 unknown unknown acidity All glucose_urin unknown NEGATIVE unknown _3369 unkno wn unknown e mg/dL All leukocyte_es unknown NEGATIVE unknown _327 unkno wn unknown terase_urine_ by_dipstick All urobilinogen unknown 0.2 unknown _326 unknown unknown _urine_semiqu (NORMAL) antitative_di pstick_ All specific_gra unknown >=1.030 unknown _325 unknow n unknown vity_urine All nitrite_urin unknown NEGATIVE unknown _323 unkno wn unknown e_semiquantit ative All ketones_urin unknown NEGATIVE unknown _322 unkno wn unknown e_by_test_str ip All bilirubin_ur unknown NEGATIVE unknown _319 unkno wn unknown ine All urine_color unknown YELLOW unknown _2751 unknown unknown All Glucose_Mass unknown NEGATIVE unknown _2350-7 unkn own unknown _volume_in_Ur mg/dL ine All WBC_urine_on unknown 4-5 /HPF unknown _1016 unkno wn unknown _microscopy All WBC_URINE unknown 4-5 /HPF unknown UWBC unknown unknown All UROBILINOGEN unknown 0.2 unknown UUROBIL unknow n unknown _URINE (NORMAL) All SPECIFIC_GRA unknown >=1.030 unknown USG unknow n unknown VITY_URINE All T unknown 4-5 /HPF unknown UR_WBC unknown un known All T unknown 0.2 unknown UR_URO unknown unkn own (NORMAL) All T unknown >=1.030 unknown UR_SG unknown unk nown All T unknown 6.0 unknown UR_PH unknown unkn own All T unknown NEGATIVE unknown UR_NIT unknown un known All T unknown NEGATIVE unknown UR_LEU_E unknown unknown STERASE All T unknown NEGATIVE unknown UR_KETO_ unknown unknown UA_ All T unknown NEGATIVE unknown UR_GLU unknown un known mg/dL All T unknown YELLOW unknown UR_COLOR unknown un known All T unknown CLEAR unknown UR_CLARI unknown un known TY All T unknown NEGATIVE unknown UR_BILI unknown u nknown All PH_URINE unknown 6.0 unknown UPH unknown un known All NITRITE_URIN unknown NEGATIVE unknown UNITRITE unk nown unknown E All LEUKOCYTE_ES unknown NEGATIVE unknown ULEUK unkno wn unknown TERASE_URINE All KETONES_URIN unknown NEGATIVE unknown UKET unkno wn unknown E_UA_ All GLUCOSE_URIN unknown NEGATIVE unknown UGLUC unkno wn unknown E_UA_ mg/dL All COLOR_URINE unknown YELLOW unknown UCOL unknown unknown All CLARITY_URIN unknown CLEAR unknown UCLAR unknown unknown E All BILIRUBIN_UR unknown NEGATIVE unknown UBIL unkno wn unknown INE All WBC_urine_on unknown 4-5 /HPF unknown _5821-4 unkn own unknown _microscopy All Urobilinogen unknown 0.2 unknown _5818-0 unknow n unknown _Presence_in_ (NORMAL) Urine_by_Test _strip All Specific_gra unknown >=1.030 unknown _5811-5 unkno wn unknown vity_of_Urine _by_Test_stri p All Nitrite_Pres unknown NEGATIVE unknown _5802-4 unkn own unknown ence_in_Urine _by_Test_stri p All Leukocyte_es unknown NEGATIVE unknown _5799-2 unkn own unknown terase_Presen ce_in_Urine_b y_Test_strip All Ketones_Mass unknown NEGATIVE unknown _5797-6 unkn own unknown _volume_in_Ur ine_by_Test_s trip All Color_of_Uri unknown YELLOW unknown _5778-6 unknow n unknown ne All Bilirubin.to unknown NEGATIVE unknown _5770-3 unkn own unknown tal_Presence_ in_Urine_by_T est_strip All clarity_urin unknown CLEAR unknown _5589 unknown unknown e_point All pH_study_of_ unknown 6.0 unknown _51641 unknown unknown acidity All glucose_urin unknown NEGATIVE unknown _3369 unkno wn unknown e mg/dL All leukocyte_es unknown NEGATIVE unknown _327 unkno wn unknown terase_urine_ by_dipstick All urobilinogen unknown 0.2 unknown _326 unknown unknown _urine_semiqu (NORMAL) antitative_di pstick_ All specific_gra unknown >=1.030 unknown _325 unknow n unknown vity_urine All nitrite_urin unknown NEGATIVE unknown _323 unkno wn unknown e_semiquantit ative All ketones_urin unknown NEGATIVE unknown _322 unkno wn unknown e_by_test_str ip All bilirubin_ur unknown NEGATIVE unknown _319 unkno wn unknown ine All urine_color unknown YELLOW unknown _2751 unknown unknown All Glucose_Mass unknown NEGATIVE unknown _2350-7 unkn own unknown _volume_in_Ur mg/dL ine All WBC_urine_on unknown 4-5 /HPF unknown _1016 unkno wn unknown _microscopy All WBC_URINE unknown 4-5 /HPF unknown UWBC unknown unknown All UROBILINOGEN unknown 0.2 unknown UUROBIL unknow n unknown _URINE (NORMAL) All SPECIFIC_GRA unknown >=1.030 unknown USG unknow n unknown VITY_URINE All T unknown 4-5 /HPF unknown UR_WBC unknown un known All T unknown 0.2 unknown UR_URO unknown unkn own (NORMAL) All T unknown >=1.030 unknown UR_SG unknown unk nown All T unknown 6.0 unknown UR_PH unknown unkn own All T unknown NEGATIVE unknown UR_NIT unknown un known All T unknown NEGATIVE unknown UR_LEU_E unknown unknown STERASE All T unknown NEGATIVE unknown UR_KETO_ unknown unknown UA_ All T unknown NEGATIVE unknown UR_GLU unknown un known mg/dL All T unknown YELLOW unknown UR_COLOR unknown un known All T unknown CLEAR unknown UR_CLARI unknown un known TY All T unknown NEGATIVE unknown UR_BILI unknown u nknown All PH_URINE unknown 6.0 unknown UPH unknown un known All NITRITE_URIN unknown NEGATIVE unknown UNITRITE unk nown unknown E All LEUKOCYTE_ES unknown NEGATIVE unknown ULEUK unkno wn unknown TERASE_URINE All KETONES_URIN unknown NEGATIVE unknown UKET unkno wn unknown E_UA_ All GLUCOSE_URIN unknown NEGATIVE unknown UGLUC unkno wn unknown E_UA_ mg/dL All COLOR_URINE unknown YELLOW unknown UCOL unknown unknown All CLARITY_URIN unknown CLEAR unknown UCLAR unknown unknown E All BILIRUBIN_UR unknown NEGATIVE unknown UBIL unkno wn unknown INE All glucose_tole unknown 101 unknown mg/dL _3383 unknown unknown rance_test_wi th_glucose_fa sting All blood_glucos unknown 99 unknown mg/dL _3379 unknown unknown e_3_hours_aft er_glucose_to lerance_test All blood_glucos unknown 128 unknown mg/dL _3378 unknown unknown e_2_hours_aft er_glucose_to lerance_test All blood_glucos unknown 179 unknown mg/dL _3377 unknown unknown e_60_minutes_ after_glucose _tolerance_te st All glucose_tole unknown 101 unknown mg/dL _3383 unknown unknown rance_test_wi th_glucose_fa sting All blood_glucos unknown 99 unknown mg/dL _3379 unknown unknown e_3_hours_aft er_glucose_to lerance_test All blood_glucos unknown 128 unknown mg/dL _3378 unknown unknown e_2_hours_aft er_glucose_to lerance_test All blood_glucos unknown 179 unknown mg/dL _3377 unknown unknown e_60_minutes_ after_glucose _tolerance_te st All glucose_tole unknown 101 unknown mg/dL _3383 unknown unknown rance_test_wi th_glucose_fa sting All blood_glucos unknown 99 unknown mg/dL _3379 unknown unknown e_3_hours_aft er_glucose_to lerance_test All blood_glucos unknown 128 unknown mg/dL _3378 unknown unknown e_2_hours_aft er_glucose_to lerance_test All blood_glucos unknown 179 unknown mg/dL _3377 unknown unknown e_60_minutes_ after_glucose _tolerance_te All glucose_tole unknown 101 unknown mg/dL _3383 unknown unknown rance_test_wi th_glucose_fa sting All blood_glucos unknown 99 unknown mg/dL _3379 unknown unknown e_3_hours_aft er_glucose_to lerance_test All blood_glucos unknown 128 unknown mg/dL _3378 unknown unknown e_2_hours_aft er_glucose_to lerance_test All blood_glucos unknown 179 unknown mg/dL _3377 unknown unknown e_60_minutes_ after_glucose _tolerance_ All blood_glucos unknown 140 (?) unknown _310 unknow n unknown e_1_hour_afte r_100_gm_oral _glucose All blood_glucos unknown 140 unknown mg/dL _1504-0 unknow n unknown e_1_hour_afte r_50_gm_oral_ glucose All blood_glucos unknown 140 (?) unknown _1501-6 unkno wn unknown e_1_hour_afte r_100_gm_oral _glucose All blood_glucos unknown 140 unknown mg/dL _1039 unknown unknown e_1_hour_afte r_50_gm_oral_ glucose All T unknown 140 (?) unknown GLU_1H_P unknown u nknown P_50GM All GLUCOSE_1H_P unknown 140 (?) unknown [id number] unkn own unknown P_50GM_DOSE All blood_glucos unknown 140 (?) unknown _310 unknow n unknown e_1_hour_afte r_100_gm_oral _glucose All blood_glucos unknown 140 unknown mg/dL _1504-0 unknow n unknown e_1_hour_afte r_50_gm_oral_ glucose All blood_glucos unknown 140 (?) unknown _1501-6 unkno wn unknown e_1_hour_afte r_100_gm_oral _glucose All blood_glucos unknown 140 unknown mg/dL _1039 unknown unknown e_1_hour_afte r_50_gm_oral_ glucose All T unknown 140 (?) unknown GLU_1H_P unknown u nknown P_50GM All GLUCOSE_1H_P unknown 140 (?) unknown [id number] unkn own unknown P_50GM_DOSE All blood_glucos unknown 140 (?) unknown _310 unknow n unknown e_1_hour_afte r_100_gm_oral _glucose All blood_glucos unknown 140 unknown mg/dL _1504-0 unknow n unknown e_1_hour_afte r_50_gm_oral_ glucose All blood_glucos unknown 140 (?) unknown _1501-6 unkno wn unknown e_1_hour_afte r_100_gm_oral _glucose All blood_glucos unknown 140 unknown mg/dL _1039 unknown unknown e_1_hour_afte r_50_gm_oral_ glucose All T unknown 140 (?) unknown GLU_1H_P unknown u nknown P_50GM All GLUCOSE_1H_P unknown 140 (?) unknown [id number] unkn own unknown P_50GM_DOSE All blood_glucos unknown 140 (?) unknown _310 unknow n unknown e_1_hour_afte r_100_gm_oral _glucose All blood_glucos unknown 140 unknown mg/dL _1504-0 unknow n unknown e_1_hour_afte r_50_gm_oral_ glucose All blood_glucos unknown 140 (?) unknown _1501-6 unkno wn unknown e_1_hour_afte r_100_gm_oral _glucose All blood_glucos unknown 140 unknown mg/dL _1039 unknown unknown e_1_hour_afte r_50_gm_oral_ glucose All T unknown 140 (?) unknown GLU_1H_P unknown u nknown P_50GM All GLUCOSE_1H_P unknown 140 (?) unknown [id number] unkn own unknown P_50GM_DOSE All blood_glucos unknown 140 (?) unknown _310 unknow n unknown e_1_hour_afte r_100_gm_oral _glucose All blood_glucos unknown 140 unknown mg/dL _1504-0 unknow n unknown e_1_hour_afte r_50_gm_oral_ glucose All blood_glucos unknown 140 (?) unknown _1501-6 unkno wn unknown e_1_hour_afte r_100_gm_oral _glucose All blood_glucos unknown 140 unknown mg/dL _1039 unknown unknown e_1_hour_afte r_50_gm_oral_ glucose All T unknown 140 (?) unknown GLU_1H_P unknown u nknown P_50GM All GLUCOSE_1H_P unknown 140 (?) unknown [id number] unkn own unknown P_50GM_DOSE All blood_glucos unknown 140 (?) unknown _310 unknow n unknown e_1_hour_afte r_100_gm_oral _glucose All blood_glucos unknown 140 unknown mg/dL _1504-0 unknow n unknown e_1_hour_afte r_50_gm_oral_ glucose All blood_glucos unknown 140 (?) unknown _1501-6 unkno wn unknown e_1_hour_afte r_100_gm_oral _glucose All blood_glucos unknown 140 unknown mg/dL _1039 unknown unknown e_1_hour_afte r_50_gm_oral_ glucose All T unknown 140 (?) unknown GLU_1H_P unknown u nknown P_50GM All GLUCOSE_1H_P unknown 140 (?) unknown [id number] unkn own unknown P_50GM_DOSE All Candida_glab unknown NEGATIVE unknown _69563-5 unk nown unknown rata_DNA_Pres ence_in_Vagin al_fluid_by_N AA_with_probe _detection All WBC_urine_on unknown 0-3 /HPF unknown _5821-4 unkn own unknown _microscopy All Urobilinogen unknown 0.2 unknown _5818-0 unknow n unknown _Presence_in_ (NORMAL) Urine_by_Test _strip All Specific_gra unknown >=1.030 unknown _5811-5 unkno wn unknown vity_of_Urine _by_Test_stri p All Nitrite_Pres unknown NEGATIVE unknown _5802-4 unkn own unknown ence_in_Urine _by_Test_stri p All Leukocyte_es unknown NEGATIVE unknown _5799-2 unkn own unknown terase_Presen ce_in_Urine_b y_Test_strip All Ketones_Mass unknown NEGATIVE unknown _5797-6 unkn own unknown _volume_in_Ur ine_by_Test_s trip All Color_of_Uri unknown YELLOW unknown _5778-6 unknow n unknown ne All Bilirubin.to unknown NEGATIVE unknown _5770-3 unkn own unknown tal_Presence_ in_Urine_by_T est_strip All clarity_urin unknown CLEAR unknown _5589 unknown unknown e_point All pH_study_of_ unknown 6.0 unknown _51641 unknown unknown acidity All glucose_urin unknown NEGATIVE unknown _3369 unkno wn unknown e mg/dL All leukocyte_es unknown NEGATIVE unknown _327 unkno wn unknown terase_urine_ by_dipstick All urobilinogen unknown 0.2 unknown _326 unknown unknown _urine_semiqu (NORMAL) antitative_di pstick_ All specific_gra unknown >=1.030 unknown _325 unknow n unknown vity_urine All nitrite_urin unknown NEGATIVE unknown _323 unkno wn unknown e_semiquantit ative All ketones_urin unknown NEGATIVE unknown _322 unkno wn unknown e_by_test_str ip All bilirubin_ur unknown NEGATIVE unknown _319 unkno wn unknown ine All urine_color unknown YELLOW unknown _2751 unknown unknown All Glucose_Mass unknown NEGATIVE unknown _2350-7 unkn own unknown _volume_in_Ur mg/dL ine All Chlamydia_tr unknown NEGATIVE unknown _21613-5 unk nown unknown achomatis_DNA _Presence_in_ Specimen_by_N AA_with_probe _detection All Vaginal_Grou unknown NEGATIVE unknown _153587 unkn own unknown p_B_Strep_by_ Real-Time_PCR All Candida_krus unknown NEGATIVE unknown _153562 unkn own unknown ei_by_Real-Ti me_PCR All chlamydia_DN unknown NEGATIVE unknown _14722 unkno wn unknown A_probe All TRICHOMONAS_ unknown NEGATIVE unknown _113002 unkn own unknown VAGINALIS_DNA _PROBE All Candida_glab unknown NEGATIVE unknown _108787 unkn own unknown rata_by_Real- time_PCR_-_va ginal_culture All WBC_urine_on unknown 0-3 /HPF unknown _1016 unkno wn unknown _microscopy All WBC_URINE unknown 0-3 /HPF unknown UWBC unknown unknown All UROBILINOGEN unknown 0.2 unknown UUROBIL unknow n unknown _URINE (NORMAL) All SPECIFIC_GRA unknown >=1.030 unknown USG unknow n unknown VITY_URINE All T unknown 0-3 /HPF unknown UR_WBC unknown un known All T unknown 0.2 unknown UR_URO unknown unkn own (NORMAL) All T unknown >=1.030 unknown UR_SG unknown unk nown All T unknown 6.0 unknown UR_PH unknown unkn own All T unknown NEGATIVE unknown UR_NIT unknown un known All T unknown NEGATIVE unknown UR_LEU_E unknown unknown STERASE All T unknown NEGATIVE unknown UR_KETO_ unknown unknown UA_ All T unknown NEGATIVE unknown UR_GLU unknown un known mg/dL All T unknown YELLOW unknown UR_COLOR unknown un known All T unknown CLEAR unknown UR_CLARI unknown un known TY All T unknown NEGATIVE unknown UR_BILI unknown u nknown All PH_URINE unknown 6.0 unknown UPH unknown un known All NITRITE_URIN unknown NEGATIVE unknown UNITRITE unk nown unknown E All LEUKOCYTE_ES unknown NEGATIVE unknown ULEUK unkno wn unknown TERASE_URINE All KETONES_URIN unknown NEGATIVE unknown UKET unkno wn unknown E_UA_ All GLUCOSE_URIN unknown NEGATIVE unknown UGLUC unkno wn unknown E_UA_ mg/dL All COLOR_URINE unknown YELLOW unknown UCOL unknown unknown All CLARITY_URIN unknown CLEAR unknown UCLAR unknown unknown E All BILIRUBIN_UR unknown NEGATIVE unknown UBIL unkno wn unknown INE All TRICHOMONAS_ unknown NEGATIVE unknown TVDNA unkno wn unknown VAGINALIS_DNA All T unknown NEGATIVE unknown T.VAGINA unknown unknown LIS_DNA All T unknown NEGATIVE unknown GBS.PEN unknown u nknown All CHLAMYDIA_TR unknown NEGATIVE unknown CTDNA unkno wn unknown ACHOMATIS_DNA All CANDIDA_KRUS unknown NEGATIVE unknown CKRUSEI_ unk nown unknown EI_DNA DNA All CANDIDA_GLAB unknown NEGATIVE unknown CGLABRAT unk nown unknown RATA_DNA A_DNA All T unknown NEGATIVE unknown C._KRUSE unknown unknown I_DNA All T unknown NEGATIVE unknown C._GLABR unknown unknown ATA_DNA All T unknown NEGATIVE unknown C.TRACH_ unknown unknown DNA All Candida_glab unknown NEGATIVE unknown _69563-5 unk nown unknown rata_DNA_Pres ence_in_Vagin al_fluid_by_N AA_with_probe _detection All WBC_urine_on unknown 0-3 /HPF unknown _5821-4 unkn own unknown _microscopy All [place]_go unknown negative unknown _2719 unkno wn unknown norrhoeae_DNA _probe All urine_cultur unknown negative unknown _2567 unkno wn unknown e_with_units_ of_CFunits_mL _ All [place]_go unknown negative unknown _24111-7 unk nown unknown norrhoeae_DNA _Presence_in_ Specimen_by_N AA_with_probe _detection All Chlamydia_tr unknown NEGATIVE unknown _21613-5 unk nown unknown achomatis_DNA _Presence_in_ Specimen_by_N AA_with_probe _detection All Vaginal_Grou unknown NEGATIVE unknown _153587 unkn own unknown p_B_Strep_by_ Real-Time_PCR All Candida_krus unknown NEGATIVE unknown _153562 unkn own unknown ei_by_Real-Ti me_PCR All chlamydia_DN unknown NEGATIVE unknown _14722 unkno wn unknown A_probe All TRICHOMONAS_ unknown NEGATIVE unknown _113002 unkn own unknown VAGINALIS_DNA _PROBE All Candida_glab unknown NEGATIVE unknown _108787 unkn own unknown rata_by_Real- time_PCR_-_va ginal_culture All WBC_urine_on unknown 0-3 /HPF unknown _1016 unkno wn unknown _microscopy All WBC_URINE unknown 0-3 /HPF unknown UWBC unknown unknown All T unknown 0-3 /HPF unknown UR_WBC unknown un known All TRICHOMONAS_ unknown NEGATIVE unknown TVDNA unkno wn unknown VAGINALIS_DNA All T unknown NEGATIVE unknown T.VAGINA unknown unknown LIS_DNA All T unknown NEGATIVE unknown GBS.PEN unknown u nknown All CHLAMYDIA_TR unknown NEGATIVE unknown CTDNA unkno wn unknown ACHOMATIS_DNA All CANDIDA_KRUS unknown NEGATIVE unknown CKRUSEI_ unk nown unknown EI_DNA DNA All CANDIDA_GLAB unknown NEGATIVE unknown CGLABRAT unk nown unknown RATA_DNA A_DNA All T unknown NEGATIVE unknown C._KRUSE unknown unknown I_DNA All T unknown NEGATIVE unknown C._GLABR unknown unknown ATA_DNA All T unknown NEGATIVE unknown C.TRACH_ unknown unknown DNA All Candida_glab unknown NEGATIVE unknown _69563-5 unk nown unknown rata_DNA_Pres ence_in_Vagin al_fluid_by_N AA_with_probe _detection All WBC_urine_on unknown 0-3 /HPF unknown _5821-4 unkn own unknown _microscopy All Urobilinogen unknown 0.2 unknown _5818-0 unknow n unknown _Presence_in_ (NORMAL) Urine_by_Test _strip All Specific_gra unknown >=1.030 unknown _5811-5 unkno wn unknown vity_of_Urine _by_Test_stri p All Nitrite_Pres unknown NEGATIVE unknown _5802-4 unkn own unknown ence_in_Urine _by_Test_stri p All Leukocyte_es unknown NEGATIVE unknown _5799-2 unkn own unknown terase_Presen ce_in_Urine_b y_Test_strip All Ketones_Mass unknown NEGATIVE unknown _5797-6 unkn own unknown _volume_in_Ur ine_by_Test_s trip All Color_of_Uri unknown YELLOW unknown _5778-6 unknow n unknown ne All Bilirubin.to unknown NEGATIVE unknown _5770-3 unkn own unknown tal_Presence_ in_Urine_by_T est_strip All clarity_urin unknown CLEAR unknown _5589 unknown unknown e_point All pH_study_of_ unknown 6.0 unknown _51641 unknown unknown acidity All glucose_urin unknown NEGATIVE unknown _3369 unkno wn unknown e mg/dL All leukocyte_es unknown NEGATIVE unknown _327 unkno wn unknown terase_urine_ by_dipstick All urobilinogen unknown 0.2 unknown _326 unknown unknown _urine_semiqu (NORMAL) antitative_di pstick_ All specific_gra unknown >=1.030 unknown _325 unknow n unknown vity_urine All nitrite_urin unknown NEGATIVE unknown _323 unkno wn unknown e_semiquantit ative All ketones_urin unknown NEGATIVE unknown _322 unkno wn unknown e_by_test_str ip All bilirubin_ur unknown NEGATIVE unknown _319 unkno wn unknown ine All urine_color unknown YELLOW unknown _2751 unknown unknown All [place]_go unknown negative unknown _2719 unkno wn unknown norrhoeae_DNA _probe All urine_cultur unknown negative unknown _2567 unkno wn unknown e_with_units_ of_CFunits_mL _ All [place]_go unknown negative unknown _24111-7 unk nown unknown norrhoeae_DNA _Presence_in_ Specimen_by_N AA_with_probe _detection All Glucose_Mass unknown NEGATIVE unknown _2350-7 unkn own unknown _volume_in_Ur mg/dL ine All Chlamydia_tr unknown NEGATIVE unknown _21613-5 unk nown unknown achomatis_DNA _Presence_in_ Specimen_by_N AA_with_probe _detection All Vaginal_Grou unknown NEGATIVE unknown _153587 unkn own unknown p_B_Strep_by_ Real-Time_PCR All Candida_krus unknown NEGATIVE unknown _153562 unkn own unknown ei_by_Real-Ti me_PCR All chlamydia_DN unknown NEGATIVE unknown _14722 unkno wn unknown A_probe All TRICHOMONAS_ unknown NEGATIVE unknown _113002 unkn own unknown VAGINALIS_DNA _PROBE All Candida_glab unknown NEGATIVE unknown _[id number] unkn own unknown rata_by_Real- time_PCR_-_va ginal_culture All WBC_urine_on unknown 0-3 /HPF unknown _1016 unkno wn unknown _microscopy All WBC_URINE unknown 0-3 /HPF unknown UWBC unknown unknown All UROBILINOGEN unknown 0.2 unknown UUROBIL unknow n unknown _URINE (NORMAL) All SPECIFIC_GRA unknown >=1.030 unknown USG unknow n unknown VITY_URINE All T unknown 0-3 /HPF unknown UR_WBC unknown un known All T unknown 0.2 unknown UR_URO unknown unkn own (NORMAL) All T unknown >=1.030 unknown UR_SG unknown unk nown All T unknown 6.0 unknown UR_PH unknown unkn own All T unknown NEGATIVE unknown UR_NIT unknown un known All T unknown NEGATIVE unknown UR_LEU_E unknown unknown STERASE All T unknown NEGATIVE unknown UR_KETO_ unknown unknown UA_ All T unknown NEGATIVE unknown UR_GLU unknown un known mg/dL All T unknown YELLOW unknown UR_COLOR unknown un known All T unknown CLEAR unknown UR_CLARI unknown un known TY All T unknown NEGATIVE unknown UR_BILI unknown u nknown All PH_URINE unknown 6.0 unknown UPH unknown un known All NITRITE_URIN unknown NEGATIVE unknown UNITRITE unk nown unknown E All LEUKOCYTE_ES unknown NEGATIVE unknown ULEUK unkno wn unknown TERASE_URINE All KETONES_URIN unknown NEGATIVE unknown UKET unkno wn unknown E_UA_ All GLUCOSE_URIN unknown NEGATIVE unknown UGLUC unkno wn unknown E_UA_ mg/dL All COLOR_URINE unknown YELLOW unknown UCOL unknown unknown All CLARITY_URIN unknown CLEAR unknown UCLAR unknown unknown E All BILIRUBIN_UR unknown NEGATIVE unknown UBIL unkno wn unknown INE All TRICHOMONAS_ unknown NEGATIVE unknown TVDNA unkno wn unknown VAGINALIS_DNA All T unknown NEGATIVE unknown T.VAGINA unknown unknown LIS_DNA All T unknown NEGATIVE unknown GBS.PEN unknown u nknown All CHLAMYDIA_TR unknown NEGATIVE unknown CTDNA unkno wn unknown ACHOMATIS_DNA All CANDIDA_KRUS unknown NEGATIVE unknown CKRUSEI_ unk nown unknown EI_DNA DNA All CANDIDA_GLAB unknown NEGATIVE unknown CGLABRAT unk nown unknown RATA_DNA A_DNA All T unknown NEGATIVE unknown C._KRUSE unknown unknown I_DNA All T unknown NEGATIVE unknown C._GLABR unknown unknown ATA_DNA All T unknown NEGATIVE unknown C.TRACH_ unknown unknown DNA All Candida_glab unknown NEGATIVE unknown _69563-5 unk nown unknown rata_DNA_Pres ence_in_Vagin al_fluid_by_N AA_with_probe _detection All WBC_urine_on unknown 0-3 /HPF unknown _5821-4 unkn own unknown _microscopy All Urobilinogen unknown 0.2 unknown _5818-0 unknow n unknown _Presence_in_ (NORMAL) Urine_by_Test _strip All Specific_gra unknown >=1.030 unknown _5811-5 unkno wn unknown vity_of_Urine _by_Test_stri p All Nitrite_Pres unknown NEGATIVE unknown _5802-4 unkn own unknown ence_in_Urine _by_Test_stri p All Leukocyte_es unknown NEGATIVE unknown _5799-2 unkn own unknown terase_Presen ce_in_Urine_b y_Test_strip All Ketones_Mass unknown NEGATIVE unknown _5797-6 unkn own unknown _volume_in_Ur ine_by_Test_s trip All Color_of_Uri unknown YELLOW unknown _5778-6 unknow n unknown ne All Bilirubin.to unknown NEGATIVE unknown _5770-3 unkn own unknown tal_Presence_ in_Urine_by_T est_strip All clarity_urin unknown CLEAR unknown _5589 unknown unknown e_point All pH_study_of_ unknown 6.0 unknown _51641 unknown unknown acidity All glucose_urin unknown NEGATIVE unknown _3369 unkno wn unknown e mg/dL All leukocyte_es unknown NEGATIVE unknown _327 unkno wn unknown terase_urine_ by_dipstick All urobilinogen unknown 0.2 unknown _326 unknown unknown _urine_semiqu (NORMAL) antitative_di pstick_ All specific_gra unknown >=1.030 unknown _325 unknow n unknown vity_urine All nitrite_urin unknown NEGATIVE unknown _323 unkno wn unknown e_semiquantit ative All ketones_urin unknown NEGATIVE unknown _322 unkno wn unknown e_by_test_str ip All bilirubin_ur unknown NEGATIVE unknown _319 unkno wn unknown ine All urine_color unknown YELLOW unknown _2751 unknown unknown All Glucose_Mass unknown NEGATIVE unknown _2350-7 unkn own unknown _volume_in_Ur mg/dL ine All Chlamydia_tr unknown NEGATIVE unknown _21613-5 unk nown unknown achomatis_DNA _Presence_in_ Specimen_by_N AA_with_probe _detection All Vaginal_Grou unknown NEGATIVE unknown _153587 unkn own unknown p_B_Strep_by_ Real-Time_PCR All Candida_krus unknown NEGATIVE unknown _153562 unkn own unknown ei_by_Real-Ti me_PCR All chlamydia_DN unknown NEGATIVE unknown _14722 unkno wn unknown A_probe All TRICHOMONAS_ unknown NEGATIVE unknown _113002 unkn own unknown VAGINALIS_DNA _PROBE All Candida_glab unknown NEGATIVE unknown _108787 unkn own unknown rata_by_Real- time_PCR_-_va ginal_culture All WBC_urine_on unknown 0-3 /HPF unknown _1016 unkno wn unknown _microscopy All WBC_URINE unknown 0-3 /HPF unknown UWBC unknown unknown All UROBILINOGEN unknown 0.2 unknown UUROBIL unknow n unknown _URINE (NORMAL) All SPECIFIC_GRA unknown >=1.030 unknown USG unknow n unknown VITY_URINE All T unknown 0-3 /HPF unknown UR_WBC unknown un known All T unknown 0.2 unknown UR_URO unknown unkn own (NORMAL) All T unknown >=1.030 unknown UR_SG unknown unk nown All T unknown 6.0 unknown UR_PH unknown unkn own All T unknown NEGATIVE unknown UR_NIT unknown un known All T unknown NEGATIVE unknown UR_LEU_E unknown unknown STERASE All T unknown NEGATIVE unknown UR_KETO_ unknown unknown UA_ All T unknown NEGATIVE unknown UR_GLU unknown un known mg/dL All T unknown YELLOW unknown UR_COLOR unknown un known All T unknown CLEAR unknown UR_CLARI unknown un known TY All T unknown NEGATIVE unknown UR_BILI unknown u nknown All PH_URINE unknown 6.0 unknown UPH unknown un known All NITRITE_URIN unknown NEGATIVE unknown UNITRITE unk nown unknown E All LEUKOCYTE_ES unknown NEGATIVE unknown ULEUK unkno wn unknown TERASE_URINE All KETONES_URIN unknown NEGATIVE unknown UKET unkno wn unknown E_UA_ All GLUCOSE_URIN unknown NEGATIVE unknown UGLUC unkno wn unknown E_UA_ mg/dL All COLOR_URINE unknown YELLOW unknown UCOL unknown unknown All CLARITY_URIN unknown CLEAR unknown UCLAR unknown unknown E All BILIRUBIN_UR unknown NEGATIVE unknown UBIL unkno wn unknown INE All TRICHOMONAS_ unknown NEGATIVE unknown TVDNA unkno wn unknown VAGINALIS_DNA All T unknown NEGATIVE unknown T.VAGINA unknown unknown LIS_DNA All T unknown NEGATIVE unknown GBS.PEN unknown u nknown All CHLAMYDIA_TR unknown NEGATIVE unknown CTDNA unkno wn unknown ACHOMATIS_DNA All CANDIDA_KRUS unknown NEGATIVE unknown CKRUSEI_ unk nown unknown EI_DNA DNA All CANDIDA_GLAB unknown NEGATIVE unknown CGLABRAT unk nown unknown RATA_DNA A_DNA All T unknown NEGATIVE unknown C._KRUSE unknown unknown I_DNA All T unknown NEGATIVE unknown C._GLABR unknown unknown ATA_DNA All T unknown NEGATIVE unknown C.TRACH_ unknown unknown DNA All Candida_glab unknown NEGATIVE unknown _69563-5 unk nown unknown rata_DNA_Pres ence_in_Vagin al_fluid_by_N AA_with_probe _detection All WBC_urine_on unknown 0-3 /HPF unknown _5821-4 unkn own unknown _microscopy All Urobilinogen unknown 0.2 unknown _5818-0 unknow n unknown _Presence_in_ (NORMAL) Urine_by_Test _strip All Specific_gra unknown >=1.030 unknown _5811-5 unkno wn unknown vity_of_Urine _by_Test_stri p All Nitrite_Pres unknown NEGATIVE unknown _5802-4 unkn own unknown ence_in_Urine _by_Test_stri p All Leukocyte_es unknown NEGATIVE unknown _5799-2 unkn own unknown terase_Presen ce_in_Urine_b y_Test_strip All Ketones_Mass unknown NEGATIVE unknown _5797-6 unkn own unknown _volume_in_Ur ine_by_Test_s trip All Color_of_Uri unknown YELLOW unknown _5778-6 unknow n unknown ne All Bilirubin.to unknown NEGATIVE unknown _5770-3 unkn own unknown tal_Presence_ in_Urine_by_T est_strip All clarity_urin unknown CLEAR unknown _5589 unknown unknown e_point All pH_study_of_ unknown 6.0 unknown _51641 unknown unknown acidity All glucose_urin unknown NEGATIVE unknown _3369 unkno wn unknown e mg/dL All leukocyte_es unknown NEGATIVE unknown _327 unkno wn unknown terase_urine_ by_dipstick All urobilinogen unknown 0.2 unknown _326 unknown unknown _urine_semiqu (NORMAL) antitative_di pstick_ All specific_gra unknown >=1.030 unknown _325 unknow n unknown vity_urine All nitrite_urin unknown NEGATIVE unknown _323 unkno wn unknown e_semiquantit ative All ketones_urin unknown NEGATIVE unknown _322 unkno wn unknown e_by_test_str ip All bilirubin_ur unknown NEGATIVE unknown _319 unkno wn unknown ine All urine_color unknown YELLOW unknown _2751 unknown unknown All Glucose_Mass unknown NEGATIVE unknown _2350-7 unkn own unknown _volume_in_Ur mg/dL ine All Chlamydia_tr unknown NEGATIVE unknown _21613-5 unk nown unknown achomatis_DNA _Presence_in_ Specimen_by_N AA_with_probe _detection All Vaginal_Grou unknown NEGATIVE unknown _153587 unkn own unknown p_B_Strep_by_ Real-Time_PCR All Candida_krus unknown NEGATIVE unknown _153562 unkn own unknown ei_by_Real-Ti me_PCR All chlamydia_DN unknown NEGATIVE unknown _14722 unkno wn unknown A_probe All TRICHOMONAS_ unknown NEGATIVE unknown _113002 unkn own unknown VAGINALIS_DNA _PROBE All Candida_glab unknown NEGATIVE unknown _108787 unkn own unknown rata_by_Real- time_PCR_-_va ginal_culture All WBC_urine_on unknown 0-3 /HPF unknown _1016 unkno wn unknown _microscopy All WBC_URINE unknown 0-3 /HPF unknown UWBC unknown unknown All UROBILINOGEN unknown 0.2 unknown UUROBIL unknow n unknown _URINE (NORMAL) All SPECIFIC_GRA unknown >=1.030 unknown USG unknow n unknown VITY_URINE All T unknown 0-3 /HPF unknown UR_WBC unknown un known All T unknown 0.2 unknown UR_URO unknown unkn own (NORMAL) All T unknown >=1.030 unknown UR_SG unknown unk nown All T unknown 6.0 unknown UR_PH unknown unkn own All T unknown NEGATIVE unknown UR_NIT unknown un known All T unknown NEGATIVE unknown UR_LEU_E unknown unknown STERASE All T unknown NEGATIVE unknown UR_KETO_ unknown unknown UA_ All T unknown NEGATIVE unknown UR_GLU unknown un known mg/dL All T unknown YELLOW unknown UR_COLOR unknown un known All T unknown CLEAR unknown UR_CLARI unknown un known TY All T unknown NEGATIVE unknown UR_BILI unknown u nknown All PH_URINE unknown 6.0 unknown UPH unknown un known All NITRITE_URIN unknown NEGATIVE unknown UNITRITE unk nown unknown E All LEUKOCYTE_ES unknown NEGATIVE unknown ULEUK unkno wn unknown TERASE_URINE All KETONES_URIN unknown NEGATIVE unknown UKET unkno wn unknown E_UA_ All GLUCOSE_URIN unknown NEGATIVE unknown UGLUC unkno wn unknown E_UA_ mg/dL All COLOR_URINE unknown YELLOW unknown UCOL unknown unknown All CLARITY_URIN unknown CLEAR unknown UCLAR unknown unknown E All BILIRUBIN_UR unknown NEGATIVE unknown UBIL unkno wn unknown INE All TRICHOMONAS_ unknown NEGATIVE unknown TVDNA unkno wn unknown VAGINALIS_DNA All T unknown NEGATIVE unknown T.VAGINA unknown unknown LIS_DNA All T unknown NEGATIVE unknown GBS.PEN unknown u nknown All CHLAMYDIA_TR unknown NEGATIVE unknown CTDNA unkno wn unknown ACHOMATIS_DNA All CANDIDA_KRUS unknown NEGATIVE unknown CKRUSEI_ unk nown unknown EI_DNA DNA All CANDIDA_GLAB unknown NEGATIVE unknown CGLABRAT unk nown unknown RATA_DNA A_DNA All T unknown NEGATIVE unknown C._KRUSE unknown unknown I_DNA All T unknown NEGATIVE unknown C._GLABR unknown unknown ATA_DNA All T unknown NEGATIVE unknown C.TRACH_ unknown unknown DNA All Candida_glab unknown NEGATIVE unknown _69563-5 unk nown unknown rata_DNA_Pres ence_in_Vagin al_fluid_by_N AA_with_probe _detection All WBC_urine_on unknown 0-3 /HPF unknown _5821-4 unkn own unknown _microscopy All Urobilinogen unknown 0.2 unknown _5818-0 unknow n unknown _Presence_in_ (NORMAL) Urine_by_Test _strip All Specific_gra unknown >=1.030 unknown _5811-5 unkno wn unknown vity_of_Urine _by_Test_stri p All Nitrite_Pres unknown NEGATIVE unknown _5802-4 unkn own unknown ence_in_Urine _by_Test_stri p All Leukocyte_es unknown NEGATIVE unknown _5799-2 unkn own unknown terase_Presen ce_in_Urine_b y_Test_strip All Ketones_Mass unknown NEGATIVE unknown _5797-6 unkn own unknown _volume_in_Ur ine_by_Test_s trip All Color_of_Uri unknown YELLOW unknown _5778-6 unknow n unknown ne All Bilirubin.to unknown NEGATIVE unknown _5770-3 unkn own unknown tal_Presence_ in_Urine_by_T est_strip All clarity_urin unknown CLEAR unknown _5589 unknown unknown e_point All pH_study_of_ unknown 6.0 unknown _51641 unknown unknown acidity All glucose_urin unknown NEGATIVE unknown _3369 unkno wn unknown e mg/dL All leukocyte_es unknown NEGATIVE unknown _327 unkno wn unknown terase_urine_ by_dipstick All urobilinogen unknown 0.2 unknown _326 unknown unknown _urine_semiqu (NORMAL) antitative_di pstick_ All specific_gra unknown >=1.030 unknown _325 unknow n unknown vity_urine All nitrite_urin unknown NEGATIVE unknown _323 unkno wn unknown e_semiquantit ative All ketones_urin unknown NEGATIVE unknown _322 unkno wn unknown e_by_test_str ip All bilirubin_ur unknown NEGATIVE unknown _319 unkno wn unknown ine All urine_color unknown YELLOW unknown _2751 unknown unknown All [place]_go unknown negative unknown _2719 unkno wn unknown norrhoeae_DNA _probe All urine_cultur unknown negative unknown _2567 unkno wn unknown e_with_units_ of_CFunits_mL _ All [place]_go unknown negative unknown _24111-7 unk nown unknown norrhoeae_DNA _Presence_in_ Specimen_by_N AA_with_probe _detection All Glucose_Mass unknown NEGATIVE unknown _2350-7 unkn own unknown _volume_in_Ur mg/dL ine All Chlamydia_tr unknown NEGATIVE unknown _21613-5 unk nown unknown achomatis_DNA _Presence_in_ Specimen_by_N AA_with_probe _detection All Vaginal_Grou unknown NEGATIVE unknown _153587 unkn own unknown p_B_Strep_by_ Real-Time_PCR All Candida_krus unknown NEGATIVE unknown _153562 unkn own unknown ei_by_Real-Ti me_PCR All chlamydia_DN unknown NEGATIVE unknown _14722 unkno wn unknown A_probe All TRICHOMONAS_ unknown NEGATIVE unknown _113002 unkn own unknown VAGINALIS_DNA _PROBE All Candida_glab unknown NEGATIVE unknown _108787 unkn own unknown rata_by_Real- time_PCR_-_va ginal_culture All WBC_urine_on unknown 0-3 /HPF unknown _1016 unkno wn unknown _microscopy All WBC_URINE unknown 0-3 /HPF unknown UWBC unknown unknown All UROBILINOGEN unknown 0.2 unknown UUROBIL unknow n unknown _URINE (NORMAL) All SPECIFIC_GRA unknown >=1.030 unknown USG unknow n unknown VITY_URINE All T unknown 0-3 /HPF unknown UR_WBC unknown un known All T unknown 0.2 unknown UR_URO unknown unkn own (NORMAL) All T unknown >=1.030 unknown UR_SG unknown unk nown All T unknown 6.0 unknown UR_PH unknown unkn own All T unknown NEGATIVE unknown UR_NIT unknown un known All T unknown NEGATIVE unknown UR_LEU_E unknown unknown STERASE All T unknown NEGATIVE unknown UR_KETO_ unknown unknown UA_ All T unknown NEGATIVE unknown UR_GLU unknown un known mg/dL All T unknown YELLOW unknown UR_COLOR unknown un known All T unknown CLEAR unknown UR_CLARI unknown un known TY All T unknown NEGATIVE unknown UR_BILI unknown u nknown All PH_URINE unknown 6.0 unknown UPH unknown un known All NITRITE_URIN unknown NEGATIVE unknown UNITRITE unk nown unknown E All LEUKOCYTE_ES unknown NEGATIVE unknown ULEUK unkno wn unknown TERASE_URINE All KETONES_URIN unknown NEGATIVE unknown UKET unkno wn unknown E_UA_ All GLUCOSE_URIN unknown NEGATIVE unknown UGLUC unkno wn unknown E_UA_ mg/dL All COLOR_URINE unknown YELLOW unknown UCOL unknown unknown All CLARITY_URIN unknown CLEAR unknown UCLAR unknown unknown E All BILIRUBIN_UR unknown NEGATIVE unknown UBIL unkno wn unknown INE All TRICHOMONAS_ unknown NEGATIVE unknown TVDNA unkno wn unknown VAGINALIS_DNA All T unknown NEGATIVE unknown T.VAGINA unknown unknown LIS_DNA All T unknown NEGATIVE unknown GBS.PEN unknown u nknown All CHLAMYDIA_TR unknown NEGATIVE unknown CTDNA unkno wn unknown ACHOMATIS_DNA All CANDIDA_KRUS unknown NEGATIVE unknown CKRUSEI_ unk nown unknown EI_DNA DNA All CANDIDA_GLAB unknown NEGATIVE unknown CGLABRAT unk nown unknown RATA_DNA A_DNA All T unknown NEGATIVE unknown C._KRUSE unknown unknown I_DNA All T unknown NEGATIVE unknown C._GLABR unknown unknown ATA_DNA All T unknown NEGATIVE unknown C.TRACH_ unknown unknown DNA All Candida_glab unknown NEGATIVE unknown _69563-5 unk nown unknown rata_DNA_Pres ence_in_Vagin al_fluid_by_N AA_with_probe _detection All WBC_urine_on unknown 0-3 /HPF unknown _5821-4 unkn own unknown _microscopy All Urobilinogen unknown 0.2 unknown _5818-0 unknow n unknown _Presence_in_ (NORMAL) Urine_by_Test _strip All Specific_gra unknown >=1.030 unknown _5811-5 unkno wn unknown vity_of_Urine _by_Test_stri p All Nitrite_Pres unknown NEGATIVE unknown _5802-4 unkn own unknown ence_in_Urine _by_Test_stri p All Leukocyte_es unknown NEGATIVE unknown _5799-2 unkn own unknown terase_Presen ce_in_Urine_b y_Test_strip All Ketones_Mass unknown NEGATIVE unknown _5797-6 unkn own unknown _volume_in_Ur ine_by_Test_s trip All Color_of_Uri unknown YELLOW unknown _5778-6 unknow n unknown ne All Bilirubin.to unknown NEGATIVE unknown _5770-3 unkn own unknown tal_Presence_ in_Urine_by_T est_strip All clarity_urin unknown CLEAR unknown _5589 unknown unknown e_point All pH_study_of_ unknown 6.0 unknown _51641 unknown unknown acidity All glucose_urin unknown NEGATIVE unknown _3369 unkno wn unknown e mg/dL All leukocyte_es unknown NEGATIVE unknown _327 unkno wn unknown terase_urine_ by_dipstick All urobilinogen unknown 0.2 unknown _326 unknown unknown _urine_semiqu (NORMAL) antitative_di pstick_ All specific_gra unknown >=1.030 unknown _325 unknow n unknown vity_urine All nitrite_urin unknown NEGATIVE unknown _323 unkno wn unknown e_semiquantit ative All ketones_urin unknown NEGATIVE unknown _322 unkno wn unknown e_by_test_str ip All bilirubin_ur unknown NEGATIVE unknown _319 unkno wn unknown ine All urine_color unknown YELLOW unknown _2751 unknown unknown All urine_cultur unknown negative unknown _2567 unkno wn unknown e_with_units_ of_CFunits_mL _ All Glucose_Mass unknown NEGATIVE unknown _2350-7 unkn own unknown _volume_in_Ur mg/dL ine All Chlamydia_tr unknown NEGATIVE unknown _21613-5 unk nown unknown achomatis_DNA _Presence_in_ Specimen_by_N AA_with_probe _detection All Vaginal_Grou unknown NEGATIVE unknown _153587 unkn own unknown p_B_Strep_by_ Real-Time_PCR All Candida_krus unknown NEGATIVE unknown _153562 unkn own unknown ei_by_Real-Ti me_PCR All chlamydia_DN unknown NEGATIVE unknown _03122 unkno wn unknown A_probe All TRICHOMONAS_ unknown NEGATIVE unknown _113002 unkn own unknown VAGINALIS_DNA _PROBE All Candida_glab unknown NEGATIVE unknown _108787 unkn own unknown rata_by_Real- time_PCR_-_va ginal_culture All WBC_urine_on unknown 0-3 /HPF unknown _1016 unkno wn unknown _microscopy All WBC_URINE unknown 0-3 /HPF unknown UWBC unknown unknown All UROBILINOGEN unknown 0.2 unknown UUROBIL unknow n unknown _URINE (NORMAL) All SPECIFIC_GRA unknown >=1.030 unknown USG unknow n unknown VITY_URINE All T unknown 0-3 /HPF unknown UR_WBC unknown un known All T unknown 0.2 unknown UR_URO unknown unkn own (NORMAL) All T unknown >=1.030 unknown UR_SG unknown unk nown All T unknown 6.0 unknown UR_PH unknown unkn own All T unknown NEGATIVE unknown UR_NIT unknown un known All T unknown NEGATIVE unknown UR_LEU_E unknown unknown STERASE All T unknown NEGATIVE unknown UR_KETO_ unknown unknown UA_ All T unknown NEGATIVE unknown UR_GLU unknown un known mg/dL All T unknown YELLOW unknown UR_COLOR unknown un known All T unknown CLEAR unknown UR_CLARI unknown un known TY All T unknown NEGATIVE unknown UR_BILI unknown u nknown All PH_URINE unknown 6.0 unknown UPH unknown un known All NITRITE_URIN unknown NEGATIVE unknown UNITRITE unk nown unknown E All LEUKOCYTE_ES unknown NEGATIVE unknown ULEUK unkno wn unknown TERASE_URINE All KETONES_URIN unknown NEGATIVE unknown UKET unkno wn unknown E_UA_ All GLUCOSE_URIN unknown NEGATIVE unknown UGLUC unkno wn unknown E_UA_ mg/dL All COLOR_URINE unknown YELLOW unknown UCOL unknown unknown All CLARITY_URIN unknown CLEAR unknown UCLAR unknown unknown E All BILIRUBIN_UR unknown NEGATIVE unknown UBIL unkno wn unknown INE All TRICHOMONAS_ unknown NEGATIVE unknown TVDNA unkno wn unknown VAGINALIS_DNA All T unknown NEGATIVE unknown T.VAGINA unknown unknown LIS_DNA All T unknown NEGATIVE unknown GBS.PEN unknown u nknown All CHLAMYDIA_TR unknown NEGATIVE unknown CTDNA unkno wn unknown ACHOMATIS_DNA All CANDIDA_KRUS unknown NEGATIVE unknown CKRUSEI_ unk nown unknown EI_DNA DNA All CANDIDA_GLAB unknown NEGATIVE unknown CGLABRAT unk nown unknown RATA_DNA A_DNA All T unknown NEGATIVE unknown C._KRUSE unknown unknown I_DNA All T unknown NEGATIVE unknown C._GLABR unknown unknown ATA_DNA All T unknown NEGATIVE unknown C.TRACH_ unknown unknown DNA All Herpes_Simpl unknown no unknown _4258 unknown unknown ex_Virus_Geni karoline All Herpes_Simpl unknown no unknown _4258 unknown unknown ex_Virus_Geni karoline All Herpes_Simpl unknown no unknown _4258 unknown unknown ex_Virus_Geni karoline All Herpes_Simpl unknown no unknown _4258 unknown unknown ex_Virus_Geni karoline All Herpes_Simpl unknown no unknown _4258 unknown unknown ex_Virus_Geni karoline All Herpes_Simpl unknown no unknown _4258 unknown unknown ex_Virus_Geni karoline All Herpes_Simpl unknown no unknown _4258 unknown unknown ex_Virus_Geni karoline All Candida_glab unknown NEGATIVE unknown _69563-5 unk nown unknown rata_DNA_Pres ence_in_Vagin al_fluid_by_N AA_with_probe _detection All WBC_urine_on unknown 0-3 /HPF unknown _5821-4 unkn own unknown _microscopy All Urobilinogen unknown 0.2 unknown _5818-0 unknow n unknown _Presence_in_ (NORMAL) Urine_by_Test _strip All Specific_gra unknown >=1.030 unknown _5811-5 unkno wn unknown vity_of_Urine _by_Test_stri p All Nitrite_Pres unknown NEGATIVE unknown _5802-4 unkn own unknown ence_in_Urine _by_Test_stri p All Leukocyte_es unknown NEGATIVE unknown _5799-2 unkn own unknown terase_Presen ce_in_Urine_b y_Test_strip All Ketones_Mass unknown NEGATIVE unknown _5797-6 unkn own unknown _volume_in_Ur ine_by_Test_s trip All Color_of_Uri unknown YELLOW unknown _5778-6 unknow n unknown ne All Bilirubin.to unknown NEGATIVE unknown _5770-3 unkn own unknown tal_Presence_ in_Urine_by_T est_strip All clarity_urin unknown CLEAR unknown _5589 unknown unknown e_point All pH_study_of_ unknown 5.0 unknown _51641 unknown unknown acidity All glucose_urin unknown NEGATIVE unknown _3369 unkno wn unknown e mg/dL All leukocyte_es unknown NEGATIVE unknown _327 unkno wn unknown terase_urine_ by_dipstick All urobilinogen unknown 0.2 unknown _326 unknown unknown _urine_semiqu (NORMAL) antitative_di pstick_ All specific_gra unknown >=1.030 unknown _325 unknow n unknown vity_urine All nitrite_urin unknown NEGATIVE unknown _323 unkno wn unknown e_semiquantit ative All ketones_urin unknown NEGATIVE unknown _322 unkno wn unknown e_by_test_str ip All bilirubin_ur unknown NEGATIVE unknown _319 unkno wn unknown ine All urine_color unknown YELLOW unknown _2751 unknown unknown All Glucose_Mass unknown NEGATIVE unknown _2350-7 unkn own unknown _volume_in_Ur mg/dL ine All Chlamydia_tr unknown NEGATIVE unknown _21613-5 unk nown unknown achomatis_DNA _Presence_in_ Specimen_by_N AA_with_probe _detection All Candida_krus unknown NEGATIVE unknown _153562 unkn own unknown ei_by_Real-Ti me_PCR All chlamydia_DN unknown NEGATIVE unknown _14722 unkno wn unknown A_probe All TRICHOMONAS_ unknown NEGATIVE unknown _113002 unkn own unknown VAGINALIS_DNA _PROBE All Candida_glab unknown NEGATIVE unknown _108787 unkn own unknown rata_by_Real- time_PCR_-_va ginal_culture All WBC_urine_on unknown 0-3 /HPF unknown _1016 unkno wn unknown _microscopy All WBC_URINE unknown 0-3 /HPF unknown UWBC unknown unknown All UROBILINOGEN unknown 0.2 unknown UUROBIL unknow n unknown _URINE (NORMAL) All SPECIFIC_GRA unknown >=1.030 unknown USG unknow n unknown VITY_URINE All T unknown 0-3 /HPF unknown UR_WBC unknown un known All T unknown 0.2 unknown UR_URO unknown unkn own (NORMAL) All T unknown >=1.030 unknown UR_SG unknown unk nown All T unknown 5.0 unknown UR_PH unknown unkn own All T unknown NEGATIVE unknown UR_NIT unknown un known All T unknown NEGATIVE unknown UR_LEU_E unknown unknown STERASE All T unknown NEGATIVE unknown UR_KETO_ unknown unknown UA_ All T unknown NEGATIVE unknown UR_GLU unknown un known mg/dL All T unknown YELLOW unknown UR_COLOR unknown un known All T unknown CLEAR unknown UR_CLARI unknown un known TY All T unknown NEGATIVE unknown UR_BILI unknown u nknown All PH_URINE unknown 5.0 unknown UPH unknown un known All NITRITE_URIN unknown NEGATIVE unknown UNITRITE unk nown unknown E All LEUKOCYTE_ES unknown NEGATIVE unknown ULEUK unkno wn unknown TERASE_URINE All KETONES_URIN unknown NEGATIVE unknown UKET unkno wn unknown E_UA_ All GLUCOSE_URIN unknown NEGATIVE unknown UGLUC unkno wn unknown E_UA_ mg/dL All COLOR_URINE unknown YELLOW unknown UCOL unknown unknown All CLARITY_URIN unknown CLEAR unknown UCLAR unknown unknown E All BILIRUBIN_UR unknown NEGATIVE unknown UBIL unkno wn unknown INE All TRICHOMONAS_ unknown NEGATIVE unknown TVDNA unkno wn unknown VAGINALIS_DNA All T unknown NEGATIVE unknown T.VAGINA unknown unknown LIS_DNA All CHLAMYDIA_TR unknown NEGATIVE unknown CTDNA unkno wn unknown ACHOMATIS_DNA All CANDIDA_KRUS unknown NEGATIVE unknown CKRUSEI_ unk nown unknown EI_DNA DNA All CANDIDA_GLAB unknown NEGATIVE unknown CGLABRAT unk nown unknown RATA_DNA A_DNA All T unknown NEGATIVE unknown C._KRUSE unknown unknown I_DNA All T unknown NEGATIVE unknown C._GLABR unknown unknown ATA_DNA All T unknown NEGATIVE unknown C.TRACH_ unknown unknown DNA All Candida_glab unknown NEGATIVE unknown _69563-5 unk nown unknown rata_DNA_Pres ence_in_Vagin al_fluid_by_N AA_with_probe _detection All WBC_urine_on unknown 0-3 /HPF unknown _5821-4 unkn own unknown _microscopy All Urobilinogen unknown 0.2 unknown _5818-0 unknow n unknown _Presence_in_ (NORMAL) Urine_by_Test _strip All Specific_gra unknown >=1.030 unknown _5811-5 unkno wn unknown vity_of_Urine _by_Test_stri p All Nitrite_Pres unknown NEGATIVE unknown _5802-4 unkn own unknown ence_in_Urine _by_Test_stri p All Leukocyte_es unknown NEGATIVE unknown _5799-2 unkn own unknown terase_Presen ce_in_Urine_b y_Test_strip All Ketones_Mass unknown NEGATIVE unknown _5797-6 unkn own unknown _volume_in_Ur ine_by_Test_s trip All Color_of_Uri unknown YELLOW unknown _5778-6 unknow n unknown ne All Bilirubin.to unknown NEGATIVE unknown _5770-3 unkn own unknown tal_Presence_ in_Urine_by_T est_strip All clarity_urin unknown CLEAR unknown _5589 unknown unknown e_point All pH_study_of_ unknown 5.0 unknown _51641 unknown unknown acidity All glucose_urin unknown NEGATIVE unknown _3369 unkno wn unknown e mg/dL All leukocyte_es unknown NEGATIVE unknown _327 unkno wn unknown terase_urine_ by_dipstick All urobilinogen unknown 0.2 unknown _326 unknown unknown _urine_semiqu (NORMAL) antitative_di pstick_ All specific_gra unknown >=1.030 unknown _325 unknow n unknown vity_urine All nitrite_urin unknown NEGATIVE unknown _323 unkno wn unknown e_semiquantit ative All ketones_urin unknown NEGATIVE unknown _322 unkno wn unknown e_by_test_str ip All bilirubin_ur unknown NEGATIVE unknown _319 unkno wn unknown ine All urine_color unknown YELLOW unknown _2751 unknown unknown All Glucose_Mass unknown NEGATIVE unknown _2350-7 unkn own unknown _volume_in_Ur mg/dL ine All Chlamydia_tr unknown NEGATIVE unknown _21613-5 unk nown unknown achomatis_DNA _Presence_in_ Specimen_by_N AA_with_probe _detection All Candida_krus unknown NEGATIVE unknown _[id number] unkn own unknown ei_by_Real-Ti me_PCR All chlamydia_DN unknown NEGATIVE unknown _14722 unkno wn unknown A_probe All TRICHOMONAS_ unknown NEGATIVE unknown _[id number] unkn own unknown VAGINALIS_DNA _PROBE All Candida_glab unknown NEGATIVE unknown _[id number] unkn own unknown rata_by_Real- time_PCR_-_va ginal_culture All WBC_urine_on unknown 0-3 /HPF unknown _1016 unkno wn unknown _microscopy All WBC_URINE unknown 0-3 /HPF unknown UWBC unknown unknown All UROBILINOGEN unknown 0.2 unknown UUROBIL unknow n unknown _URINE (NORMAL) All SPECIFIC_GRA unknown >=1.030 unknown USG unknow n unknown VITY_URINE All T unknown 0-3 /HPF unknown UR_WBC unknown un known All T unknown 0.2 unknown UR_URO unknown unkn own (NORMAL) All T unknown >=1.030 unknown UR_SG unknown unk nown All T unknown 5.0 unknown UR_PH unknown unkn own All T unknown NEGATIVE unknown UR_NIT unknown un known All T unknown NEGATIVE unknown UR_LEU_E unknown unknown STERASE All T unknown NEGATIVE unknown UR_KETO_ unknown unknown UA_ All T unknown NEGATIVE unknown UR_GLU unknown un known mg/dL All T unknown YELLOW unknown UR_COLOR unknown un known All T unknown CLEAR unknown UR_CLARI unknown un known TY All T unknown NEGATIVE unknown UR_BILI unknown u nknown All PH_URINE unknown 5.0 unknown UPH unknown un known All NITRITE_URIN unknown NEGATIVE unknown UNITRITE unk nown unknown E All LEUKOCYTE_ES unknown NEGATIVE unknown ULEUK unkno wn unknown TERASE_URINE All KETONES_URIN unknown NEGATIVE unknown UKET unkno wn unknown E_UA_ All GLUCOSE_URIN unknown NEGATIVE unknown UGLUC unkno wn unknown E_UA_ mg/dL All COLOR_URINE unknown YELLOW unknown UCOL unknown unknown All CLARITY_URIN unknown CLEAR unknown UCLAR unknown unknown E All BILIRUBIN_UR unknown NEGATIVE unknown UBIL unkno wn unknown INE All TRICHOMONAS_ unknown NEGATIVE unknown TVDNA unkno wn unknown VAGINALIS_DNA All T unknown NEGATIVE unknown T.VAGINA unknown unknown LIS_DNA All CHLAMYDIA_TR unknown NEGATIVE unknown CTDNA unkno wn unknown ACHOMATIS_DNA All CANDIDA_KRUS unknown NEGATIVE unknown CKRUSEI_ unk nown unknown EI_DNA DNA All CANDIDA_GLAB unknown NEGATIVE unknown CGLABRAT unk nown unknown RATA_DNA A_DNA All T unknown NEGATIVE unknown C._KRUSE unknown unknown I_DNA All T unknown NEGATIVE unknown C._GLABR unknown unknown ATA_DNA All T unknown NEGATIVE unknown C.TRACH_ unknown unknown DNA All Candida_glab unknown NEGATIVE unknown _69563-5 unk nown unknown rata_DNA_Pres ence_in_Vagin al_fluid_by_N AA_with_probe _detection All WBC_urine_on unknown 0-3 /HPF unknown _5821-4 unkn own unknown _microscopy All Urobilinogen unknown 0.2 unknown _5818-0 unknow n unknown _Presence_in_ (NORMAL) Urine_by_Test _strip All Specific_gra unknown >=1.030 unknown _5811-5 unkno wn unknown vity_of_Urine _by_Test_stri p All Nitrite_Pres unknown NEGATIVE unknown _5802-4 unkn own unknown ence_in_Urine _by_Test_stri p All Leukocyte_es unknown NEGATIVE unknown _5799-2 unkn own unknown terase_Presen ce_in_Urine_b y_Test_strip All Ketones_Mass unknown NEGATIVE unknown _5797-6 unkn own unknown _volume_in_Ur ine_by_Test_s trip All Color_of_Uri unknown YELLOW unknown _5778-6 unknow n unknown ne All Bilirubin.to unknown NEGATIVE unknown _5770-3 unkn own unknown tal_Presence_ in_Urine_by_T est_strip All clarity_urin unknown CLEAR unknown _5589 unknown unknown e_point All pH_study_of_ unknown 5.0 unknown _51641 unknown unknown acidity All glucose_urin unknown NEGATIVE unknown _3369 unkno wn unknown e mg/dL All leukocyte_es unknown NEGATIVE unknown _327 unkno wn unknown terase_urine_ by_dipstick All urobilinogen unknown 0.2 unknown _326 unknown unknown _urine_semiqu (NORMAL) antitative_di pstick_ All specific_gra unknown >=1.030 unknown _325 unknow n unknown vity_urine All nitrite_urin unknown NEGATIVE unknown _323 unkno wn unknown e_semiquantit ative All ketones_urin unknown NEGATIVE unknown _322 unkno wn unknown e_by_test_str ip All bilirubin_ur unknown NEGATIVE unknown _319 unkno wn unknown ine All urine_color unknown YELLOW unknown _2751 unknown unknown All Glucose_Mass unknown NEGATIVE unknown _2350-7 unkn own unknown _volume_in_Ur mg/dL ine All Chlamydia_tr unknown NEGATIVE unknown _21613-5 unk nown unknown achomatis_DNA _Presence_in_ Specimen_by_N AA_with_probe _detection All Candida_krus unknown NEGATIVE unknown _[id number] unkn own unknown ei_by_Real-Ti me_PCR All chlamydia_DN unknown NEGATIVE unknown _57622 unkno wn unknown A_probe All TRICHOMONAS_ unknown NEGATIVE unknown _113002 unkn own unknown VAGINALIS_DNA _PROBE All Candida_glab unknown NEGATIVE unknown _108787 unkn own unknown rata_by_Real- time_PCR_-_va ginal_culture All WBC_urine_on unknown 0-3 /HPF unknown _1016 unkno wn unknown _microscopy All WBC_URINE unknown 0-3 /HPF unknown UWBC unknown unknown All UROBILINOGEN unknown 0.2 unknown UUROBIL unknow n unknown _URINE (NORMAL) All SPECIFIC_GRA unknown >=1.030 unknown USG unknow n unknown VITY_URINE All T unknown 0-3 /HPF unknown UR_WBC unknown un known All T unknown 0.2 unknown UR_URO unknown unkn own (NORMAL) All T unknown >=1.030 unknown UR_SG unknown unk nown All T unknown 5.0 unknown UR_PH unknown unkn own All T unknown NEGATIVE unknown UR_NIT unknown un known All T unknown NEGATIVE unknown UR_LEU_E unknown unknown STERASE All T unknown NEGATIVE unknown UR_KETO_ unknown unknown UA_ All T unknown NEGATIVE unknown UR_GLU unknown un known mg/dL All T unknown YELLOW unknown UR_COLOR unknown un known All T unknown CLEAR unknown UR_CLARI unknown un known TY All T unknown NEGATIVE unknown UR_BILI unknown u nknown All PH_URINE unknown 5.0 unknown UPH unknown un known All NITRITE_URIN unknown NEGATIVE unknown UNITRITE unk nown unknown E All LEUKOCYTE_ES unknown NEGATIVE unknown ULEUK unkno wn unknown TERASE_URINE All KETONES_URIN unknown NEGATIVE unknown UKET unkno wn unknown E_UA_ All GLUCOSE_URIN unknown NEGATIVE unknown UGLUC unkno wn unknown E_UA_ mg/dL All COLOR_URINE unknown YELLOW unknown UCOL unknown unknown All CLARITY_URIN unknown CLEAR unknown UCLAR unknown unknown E All BILIRUBIN_UR unknown NEGATIVE unknown UBIL unkno wn unknown INE All TRICHOMONAS_ unknown NEGATIVE unknown TVDNA unkno wn unknown VAGINALIS_DNA All T unknown NEGATIVE unknown T.VAGINA unknown unknown LIS_DNA All CHLAMYDIA_TR unknown NEGATIVE unknown CTDNA unkno wn unknown ACHOMATIS_DNA All CANDIDA_KRUS unknown NEGATIVE unknown CKRUSEI_ unk nown unknown EI_DNA DNA All CANDIDA_GLAB unknown NEGATIVE unknown CGLABRAT unk nown unknown RATA_DNA A_DNA All T unknown NEGATIVE unknown C._KRUSE unknown unknown I_DNA All T unknown NEGATIVE unknown C._GLABR unknown unknown ATA_DNA All T unknown NEGATIVE unknown C.TRACH_ unknown unknown DNA All Candida_glab unknown NEGATIVE unknown _69563-5 unk nown unknown rata_DNA_Pres ence_in_Vagin al_fluid_by_N AA_with_probe _detection All Candida_krus unknown NEGATIVE unknown _[id number] unkn own unknown ei_by_Real-Ti me_PCR All Candida_glab unknown NEGATIVE unknown _108787 unkn own unknown rata_by_Real- time_PCR_-_va ginal_culture All CANDIDA_KRUS unknown NEGATIVE unknown CKRUSEI_ unk nown unknown EI_DNA DNA All CANDIDA_GLAB unknown NEGATIVE unknown CGLABRAT unk nown unknown RATA_DNA A_DNA All T unknown NEGATIVE unknown C._KRUSE unknown unknown I_DNA All T unknown NEGATIVE unknown C._GLABR unknown unknown ATA_DNA Vital Signs date measurement value source 20211205 weight_standard 291 lb 20211205 weight_metric 132 kg 20211205 BP_systolic 109 mm[Hg] 20211205 BP_diastolic 77 mm[Hg] 20211216 height_standard 67 in 20211216 height_metric 170.18 cm 20211216 weight_standard 294.6 lb 20211216 weight_metric 133.63 kg 20211216 temperature_standard 97.5 F 20211216 temperature_metric 36.39 C 20211216 height_standard 67 in 20211216 height_metric 170.18 cm 20211216 BP_systolic 108 mm[Hg] 20211216 BP_diastolic 72 mm[Hg] 20211216 BMI 46.31 kg/m2 20211216 weight_standard 294.6 lb 20211216 weight_metric 133.63 kg 20211216 temperature_standard 97.5 F 20211216 temperature_metric 36.39 C 20211216 height_standard 67 in 20211216 height_metric 170.18 cm 20211216 BP_systolic 108 mm[Hg] 20211216 BP_diastolic 72 mm[Hg] 20211216 BMI 46.31 kg/m2 20211216 weight_standard 294.6 lb 20211216 weight_metric 133.63 kg 20211216 temperature_standard 97.5 F 20211216 temperature_metric 36.39 C 20211216 height_standard 67 in 20211216 height_metric 170.18 cm 20211216 BP_systolic 108 mm[Hg] 20211216 BP_diastolic 72 mm[Hg] 20211216 BMI 46.31 kg/m2 20211216 weight_standard 294.6 lb 20211216 weight_metric 133.63 kg 20211216 temperature_standard 97.5 F 20211216 temperature_metric 36.39 C 20211216 height_standard 67 in 20211216 height_metric 170.18 cm 20211216 BP_systolic 108 mm[Hg] 20211216 BP_diastolic 72 mm[Hg] 20211216 BMI 46.31 kg/m2 20220101 weight_standard 294.5 lb 20220101 weight_metric 133.58 kg 20220101 temperature_standard 97.3 F 20220101 temperature_metric 36.28 C 20220101 height_standard 67 in 20220101 height_metric 170.18 cm 20220101 BP_systolic 122 mm[Hg] 20220101 BP_diastolic 78 mm[Hg] 20220101 BMI 46.29 kg/m2 20220101 weight_standard 294.5 lb 20220101 weight_metric 133.58 kg 20220101 temperature_standard 97.3 F 20220101 temperature_metric 36.28 C 20220101 height_standard 67 in 20220101 height_metric 170.18 cm 20220101 BP_systolic 122 mm[Hg] 20220101 BP_diastolic 78 mm[Hg] 20220101 BMI 46.29 kg/m2 20220115 weight_standard 299.2 lb 20220115 weight_metric 135.71 kg 20220115 temperature_standard 97.2 F 20220115 temperature_metric 36.22 C 20220115 height_standard 67 in 20220115 height_metric 170.18 cm 20220115 BP_systolic 118 mm[Hg] 20220115 BP_diastolic 80 mm[Hg] 20220115 BMI 47.03 kg/m2 20220115 weight_standard 299.2 lb 20220115 weight_metric 135.71 kg 20220115 temperature_standard 97.2 F 20220115 temperature_metric 36.22 C 20220115 height_standard 67 in 20220115 height_metric 170.18 cm 20220115 BP_systolic 118 mm[Hg] 20220115 BP_diastolic 80 mm[Hg] 20220115 BMI 47.03 kg/m2 20220115 weight_standard 299.2 lb 20220115 weight_metric 135.71 kg 20220115 temperature_standard 97.2 F 20220115 temperature_metric 36.22 C 20220115 height_standard 67 in 20220115 height_metric 170.18 cm 20220115 BP_systolic 118 mm[Hg] 20220115 BP_diastolic 80 mm[Hg] 20220115 BMI 47.03 kg/m2 20220115 weight_standard 299.2 lb 20220115 weight_metric 135.71 kg 20220115 temperature_standard 97.2 F 20220115 temperature_metric 36.22 C 20220115 height_standard 67 in 20220115 height_metric 170.18 cm 20220115 BP_systolic 118 mm[Hg] 20220115 BP_diastolic 80 mm[Hg] 20220115 BMI 47.03 kg/m2 20220129 weight_standard 304.4 lb 20220129 weight_metric 138.07 kg 20220129 temperature_standard 97.5 F 20220129 temperature_metric 36.39 C 20220129 BP_systolic 120 mm[Hg] 20220129 BP_diastolic 80 mm[Hg] 20220129 BMI 47.85 kg/m2 20220203 weight_standard 303 lb 20220203 weight_metric 137.44 kg 20220203 temperature_standard 97.3 F 20220203 temperature_metric 36.28 C 20220203 height_standard 67 in 20220203 height_metric 170.18 cm 20220203 BP_systolic 122 mm[Hg] 20220203 BP_diastolic 80 mm[Hg] 20220203 BMI 47.63 kg/m2 20220203 weight_standard 303 lb 20220203 weight_metric 137.44 kg 20220203 temperature_standard 97.3 F 20220203 temperature_metric 36.28 C 20220203 height_standard 67 in 20220203 height_metric 170.18 cm 20220203 BP_systolic 122 mm[Hg] 20220203 BP_diastolic 80 mm[Hg] 20220203 BMI 47.63 kg/m2 20220203 weight_standard 303 lb 20220203 weight_metric 137.44 kg 20220203 temperature_standard 97.3 F 20220203 temperature_metric 36.28 C 20220203 height_standard 67 in 20220203 height_metric 170.18 cm 20220203 BP_systolic 122 mm[Hg] 20220203 BP_diastolic 80 mm[Hg] 20220203 BMI 47.63 kg/m2 20220220 weight_standard 317 lb 20220220 weight_metric 143.79 kg 20220220 temperature_standard 97.3 F 20220220 temperature_metric 36.28 C 20220220 height_standard 67 in 20220220 height_metric 170.18 cm 20220220 BP_systolic 136 mm[Hg] 20220220 BP_diastolic 72 mm[Hg] 20220220 BMI 49.83 kg/m2
[2022-02-27] MEDS ORDERED: SODIUM CHLORIDE FLUSH 0.9% 10 ML SYRINGE IVP PRN ×2 (09:19→14:46)
[2022-02-27] MEDS ORDERED: ACETAMINOPHEN 500 MG TABLET PO ONE (10:00)
[2022-02-27] MEDS ORDERED: GABAPENTIN 400 MG CAPSULE PO ONE (10:00)
[2022-02-27] MEDS ORDERED: SODIUM CHLORIDE FLUSH 0.9% 10 ML SYRINGE IVP SCH (10:00)
[2022-02-27] MEDS ORDERED: LACTATED RINGERS 1,000 ML IV SCH ×2 (10:00→13:00)
--- NOTE | 2022-02-27 11:21 | HISTORY & PHYSICAL EXAMINATION ---
Admit History - : 5 Parity: 0040 Ectopic: 2 : 2 Care: positive: [facility] Risk/History: positive: None Complications This : positive: Other ( Macrosomia, impaired glucose tolerance.) Smoking Status: Former smoker - Mother's Labs Mother's Blood Type: positive: AB Mother's RH: positive: Positive GBS: positive: Group B Step Negative Rubella Status: positive: Immune - Other Maternal History Other Maternal History: HPI: 31-year-old -0-4-0 presenting today at 39 weeks 0 days gestation for primary low-transverse section for macrosomia and impaired glucose tolerance. This is an IVF . She has good movement. Denies contractions. Denies loss of fluid. No RUDOLPH/BV or RUQP. No vaginal bl eeding. Denies nausea and vomiting. Denies urinary urgency or dysuria. All other symptoms reviewed and were negative except per HPI. Course LMP: 05/30/2021 GABO by LMP: 03/06/2022 [facility] TRANSFER 06/18/2021 Initial Ultrasound date/GABO by US: 07/31/2021 @ [facility] c/w dates. Final GABO by embryo transfer date: 03/07/2022 IVF : Taking aspirin daily. Likely 39 week induction. FOB with stage 4 liver cancer. Worsening prognosis as medication not as effective as it had been growth at 96 percentile: Plan to repeat prior to delivery. Currently 3100 g, at risk for macrosomia. AB+ /Rubella immune VZV: nonimmune Genetic testing: "low risk" and "female fetus" Neg CF, Neg Nery, Neg TaySachs FAS: per [facility] charting "10/24 EFW 441g, 80%tile, 11/07 repeat normal with low lying placenta resolved; still needs sacral spine and RVOT views." Subsequently saw outflow tract, but spine was not well visualized. Most recent ultrasound showed an EFW of 3108 g, 96 percentile. Plan to repeat tomorrow Glucola: per [facility] charting early 1hr normal. 1hr: 140. 3hr- 101, 179, 128, 99. Influenza: declines TDAP: 12/05/2021 GBS: Negative on 12/27/2021, repeat negative 02/12/22 HSV: Denies in self or partner Breast pump Rx:01/01/22 MOD: Plan for . Likely 39 week induction. pp contraception: S/P Bilateral salpingectomy. This is IVF . pap:per [facility] charting "NIL +HPV, repeat one year" Covid: Completed [facility] vaccine 04/10/21 PMH Dermoid cyst of left ovary Ectopic x2 Unilateral salpingectomy x2 PSH Bilateral salpingectomy for treatment of ectopic x2 Cholecystectomy Dilation curettage Colonoscopy with biopsies EGD with biopsies Tonsillectomy Tympanostomy tube placement OB History -0-4-0 2 miscarriages, 2 ectopic pregnancies with salpingectomies. SH Denies tobacco, Po, drugs Family History Denies pertinent family history Allergies No known drug allergies Medications vitamins Physical exam: Temp Pulse Resp BP Pulse Ox 98.2 F 72 18 126/81 H 02/27/22 09:20 02/27/22 09:20 02/27/22 09:20 02/27/22 09:20 General: Alert, oriented, no acute distress Head: Normal cephalic atraumatic Eyes: PERRLA, extraocular motions intact. Respiratory: Normal rate of respiration. No accessory muscle use, normal respiratory effort. Cardiovascular: Regular rate and rhythm Abdomen: Gravid, nontender, nondistended Extremities: Normal range of motion Neuro: Oriented x3. Normal movements Psych: Appropriate mood and affect. Normal judgment and insight Plan 31-year-old -0-4-0 at 39 weeks 0 days gestation with macrosomia scheduled for primary low-transverse section 1. macrosomia: Fetus at 4402 g at 38 weeks gestation. Discussed with increased risk due to fetus with estimated weight about 4500 g compared glucose metabolism and growth with percentiles out of range, this puts her at significant risk of of complications during labor. 2. 39 weeks gestation 3. Impaired glucose tolerance 4. IVF 5. High risk social situation: -Patient's family is currently under increased stress due to father the baby having liver cancer with unsure prognosis. 6. Morbid obesity, BMI 49 Meds/Allgy - Home Medications Home Medications: Ambulatory Orders Medication Instructions Recorded Confirmed Nitrofurantoin [Macrobid] 100 mg PO BID 7 Days #14 tab 02/09/22 - Allergies Allergies/Adverse Reactions: Allergies Allergy/AdvReac Type Severity Reaction Status Date / Time No Known Drug Allergies Allergy Verified 12/07/21 00:42 Physical - Abdominal Exam Vital Signs: Temp Pulse Resp BP Pulse Ox 98.2 F 72 18 126/81 H 02/27/22 09:20 02/27/22 09:20 02/27/22 09:20 02/27/22 09:20
--- NOTE | 2022-02-27 12:34 | ANESTHESIA ---
Pre-Anesthesia VS, & Labs - Diagnosis macrosomia - Procedure section Vital Signs: Temp Pulse Resp BP Pulse Ox 36.8 C 72 18 126/81 H 02/27/22 09:20 02/27/22 09:20 02/27/22 09:20 02/27/22 09:20 Height: 5 ft 7 in Weight (kg): 143.789 kg Body Mass Index: 49.6 BMI Classification: Morbidly Obese - NPO >8 hours - Is Patient ?: Yes Home Medications and Allergies Active Medications Lactated Ringer's (Lr) 1,000 mls @ 125 mls/hr IV .Q8H NAZIA Last Admin: 02/27/22 10:32 Dose: 125 mls/hr Sodium Chloride (Sodium Chloride Flush 0.9% 10 Ml Syringe) 10 ml IVP PRN PRN PRN Reason: NEEDED PER PROVIDER ORDERS Sodium Chloride (Sodium Chloride Flush 0.9% 10 Ml Syringe) 10 ml IVP Q8H COUNT INCLUDES THE [facility] Allergies/Adverse Reactions: Allergies Allergy/AdvReac Type Severity Reaction Status Date / Time No Known Drug Allergies Allergy Verified 12/07/21 00:42 Anes History & Medical History - Anesthetic History Anesthesia Complications: reports: No previous complications - Medical History Smoking Status: Former smoker History of Cancer?: No - Surgical History Gynecologic: reports: Other (salphingectomy) - Obstetrical History : 5 Parity: 0040 Events: reports: None Complications: reports: Other ( Macrosomia, impaired glucose tolerance.) Exam Dental: WNL Neck Mobility: Normal Mallampati classification: II Respiratory: Lungs clear Cardiovascular: Regular rate Plan Anesthesia Type: Spinal Consent for Procedure(s) Verified and Reviewed: Yes Code Status: Attempt Resuscitation ASA classification: 2-Mild systemic disease Is this case an emergency?: No
[2022-02-27] MEDS ORDERED: ATROPINE ABBOJECT 1 MG/10 ML SYRINGE IVP PRN (12:41)
[2022-02-27] MEDS ORDERED: ONDANSETRON 4 MG/2 ML VIAL IVP PRN ×2 (12:41→14:26)
[2022-02-27] MEDS ORDERED: MORPHINE 2 MG/ML CARPUJECT IVP PRN (12:41)
[2022-02-27] MEDS ORDERED: NALOXONE 0.4 MG/ML VIAL IVP PRN ×2 (12:41→14:26)
[2022-02-27] MEDS ORDERED: fentaNYL 100 MCG/2 ML VIAL IVP PRN (12:41)
[2022-02-27] MEDS ORDERED: HYDROmorphone 0.5 MG/0.5 ML SYRINGE IVP PRN (12:41)
[2022-02-27] MEDS ORDERED: ePHEDrine 50 MG/ML VIAL IVP PRN ×2 (12:41→14:26)
[2022-02-27] MEDS ORDERED: METOCLOPRAMIDE 10 MG/2 ML VIAL IVP PRN ×2 (12:41→14:26)
[2022-02-27] MEDS ORDERED: SODIUM CHLORIDE 0.9% 10 ML VIAL IVP ONE ×2 (14:09)
[2022-02-27] MEDS ORDERED: ePHEDrine 50 MG/ML VIAL IVP ONE (14:09)
[2022-02-27] MEDS ORDERED: NALBUPHINE 10 MG/ML AMP IVP PRN (14:26)
[2022-02-27] MEDS ORDERED: MORPHINE PF 5 MG/10 ML VIAL EP ONE (14:26)
[2022-02-27] MEDS ORDERED: diphenhydrAMINE INJ 50 MG/ML VIAL IVP PRN (14:26)
[2022-02-27] MEDS ORDERED: OXYTOCIN 10 UNIT/ML VIAL ONE (14:37)
--- NOTE | 2022-02-27 14:44 | OPERATIVE REPORT ---
Operative Report - General Admit Date: 02/27/22 Procedure Date: 02/27/22 Planned Procedure: Primary Low Transverse Section Pre-Op Diagnosis: Macrosomia, Impaired glucose tolerance, 39 weeks gestation Procedure Performed: Primary Low Transverse Section Post Op Diagnosis: Same, delivered - Procedure Note Primary Surgeon: Patrick Elias MD Secondary Surgeon: Joya Donahue MD Anesthesia Provider: Meliza Magaña CRNA Anesthesia Technique: Spinal Pathology: None Estimated Blood Loss (mL): 800 Findings: Normal appearing uterus, absent tubes. Complications: None - Other Other Information/Narrative: section was recommended. Risks, benefits and alternatives were discussed including but not limited to infection, bleeding that may require blood products or hysterectomy for life saving measures, injury to surrounding organs including but not limited to bowel, bladder, ureters, tubes and ovaries and/or the baby. Should injury occur it could require longer/additional surgery to repair. The patient stated understanding and desired to proceed. All questions were answered posed by patient. Prior to being taken to the OR, 3 grams of cefazolin IV was administered. The patient was taken to the operating room where regional anesthesia was found to be adequate. She was then prepared and draped in the usual sterile fashion in the dorsal supine position with a leftward tilt displacing the uterus. [place] was draining to gravity. SCDs were on bilateral lower extremities. A pfannenstiel skin incision was then made with the scalpel and carried through to the underlying layer of fascia. The fascia was incised in the midline and the incision extended laterally with the Moeller scissors. The superior aspect of the facial incision was then grasped with the Gi clamps, elevated and the underlying rectus muscles dissected off sharply. Attention was then turned to the inferior aspect of this incision which in a similar fashion was grasped, elevated with the Gi clamps and the rectus muscle dissected off sharply. The rectus muscles were in the midline. The peritoneum identified, grasped with the pick-ups and entered sharply with the Metzenbaum scissors. The peritoneal incision was then extended superiorly and inferiorly with good visualization of the bladder. The bladder blade was inserted. The vesicouterine peritoneum was identified, grasped with the pick-ups, and entered sharply with Metzenbaum scissors. This incision was then extended laterally and the bladder flap created digitally. The bladder blade was reinserted. The lower uterine segment was identified and incised in a transverse fashion with the scalpel. The uterine incision was then extended bluntly laterally. Artificial rupture of membranes demonstrated a copious amount of clear fluid. The bladder blade was removed. The fetus was in a cephalic presentation. The infants head delivered atraumatically. The anterior shoulders were delivered followed by the posterior shoulders then the remainder of the body. The infants mouth and nose were bulb suctioned. The umbilical cord was clamped times two and cut. The was taken to the recovery room for transition. Cord blood gases were obtained. The placenta was removed with gentle traction. Oxytocin were added to IVF and allowed to run freely. The uterus was exteriorized and cleared of all clots and debris. The uterine incision was inspected and found to be without any extensions and was repaired with 0 Vicryl in a running, locked fashion. A second imbricating layer was performed. 2 additional [id number] stitches were required for hemostasis. Upon inspection, the repaired hysterotomy was found to be hemostatic. The uterus was firm and returned to the abdomen. The gutters were cleared of all clots and debris. The peritoneum was closed with a running suture of 2-0 Vicryl the muscles were reapproximated with 2-0 Vicryl. The fascia was reapproximated with 0 Vicryl in a running fashion. The subcutaneous tissue was closed with 2-0 Vicryl. The skin was closed in a subcuticular fashion with 4-0 Monocryl. The patient tolerated the procedure well. Sponge, lap and needle counts were correct times three. The patient was taken to the recovery room in stable condition. weight is pending at this time. I appreciate the assistance of Dr. Donahue during this procedure, and the assistance in retraction, visualization, dissection, and overall assistance during the case were instrumental to the patient's wellbeing.
[2022-02-27] MEDS ORDERED: ONDANSETRON ODT 4 MG TABLET TL PRN (14:46)
[2022-02-27] MEDS ORDERED: OXYTOCIN/SODIUM CHLORIDE 500 ML IV PRN (14:46)
[2022-02-27] MEDS ORDERED: SIMETHICONE CHEW 80 MG TABLET PO PRN (14:46)
[2022-02-27] MEDS ORDERED: LACTATED RINGERS 800 ML IV ONE (14:53)
[2022-02-27] MEDS: KETOROLAC 30 MG/ML VIAL IVP SCH ×2 (15:00→20:48)
[2022-02-27] MEDS ORDERED: ACETAMINOPHEN 1,000 MG/100 ML 100 ML IV ONE ×2 (15:40→15:55)
--- NOTE | 2022-02-27 15:42 | ANESTHESIA POST OP EVALUATION ---
Anesthesia Post Eval - Post Anesthesia Eval Vitals: Last Vital Signs Temp 36.6 C 02/27/22 15:20 Pulse 64 02/27/22 15:20 Resp 17 02/27/22 15:20 BP 110/73 02/27/22 15:20 Pulse Ox 97 02/27/22 15:20 CV Function Including HR & BP: Stable Pain Control: Satisfactory Nausea & Vomiting: Negative Mental Status: Baseline Respiratory Status: Airway Patent Hydration Status: Satisfactory Anesthesia Complications: None
[2022-02-27] MEDS: LACTATED RINGERS 1,000 ML IV SCH (16:03)
[2022-02-27] MEDS: metroNIDAZOLE 250 MG TABLET PO SCH (17:07)
[2022-02-27] MEDS: cephALEXin 250 MG CAPSULE PO SCH (20:48)
[2022-02-27] MEDS: DOCUSATE SODIUM 100 MG CAPSULE PO SCH (20:48)
[2022-02-27] MEDS: oxyCODONE 5 MG TABLET PO PRN (23:42)
[2022-02-28] MEDS: ACETAMINOPHEN 500 MG TABLET PO SCH ×4 (00:31→17:33)
[2022-02-28] MEDS ORDERED: LACTATED RINGERS 1,000 ML IV ONE ×2 (00:45→09:04)
[2022-02-28] MEDS: KETOROLAC 30 MG/ML VIAL IVP SCH ×2 (02:46→08:36)
[2022-02-28] MEDS: LACTATED RINGERS 1,000 ML IV SCH ×2 (02:53→16:39)
[2022-02-28] MEDS: cephALEXin 250 MG CAPSULE PO SCH ×3 (03:45→20:55)
[2022-02-28 06:32] LABS: BASOPHILS % (AUTO) 0.4 %; EOSINOPHILS # (AUTO) 0.1 10^3/uL (0.0-0.7); EOSINOPHILS % (AUTO) 0.6 %; HCT - HEMATOCRIT 26.1 % (37.0-47.0); HGB - HEMOGLOBIN 8.4 g/dL (12.0-16.0); LYMPHOCYTES # (AUTO) 1.5 10^3/uL (1.5-3.5); MEAN CORPUSCULAR HEMOGLOBIN 26.4 pg (27.0-31.0); MEAN CORPUSCULAR HGB CONC 32.2 g/dL (32.0-36.0); MEAN CORPUSCULAR VOLUME 82.1 fL (81.0-99.0); MEAN PLATELET VOLUME 10.5 fL (7.9-10.8); MONOCYTES # (AUTO) 0.4 10^3/uL (0.0-1.0); MONOCYTES % (AUTO) 4.8 %; NEUTROPHILS % (AUTO) 74.8 %; PLT - PLATELET COUNT 180 10^3/uL (130-450); RED BLOOD COUNT 3.18 10^6/uL (4.20-5.40); RED CELL DISTRIBUTION WIDTH 15.4 % (12.0-15.0)
[2022-02-28] MEDS: SODIUM CHLORIDE FLUSH 0.9% 10 ML SYRINGE IVP SCH ×4 (08:36→20:57)
[2022-02-28] MEDS: DOCUSATE SODIUM 100 MG CAPSULE PO SCH ×2 (08:36→20:56)
[2022-02-28] MEDS: oxyCODONE 5 MG TABLET PO PRN ×4 (09:25→22:55)
--- NOTE | 2022-02-28 09:39 | PROVIDER PROGRESS NOTE ---
Subjective - Prog Note Date Prog Note Date: 02/28/22 Prog Note Time: 09:36 - Subjective Pt reports feeling: Improved Subjective: Feels well but requesting oxycodone now. Appropriate lochinely [place] in place, was monitoring lower UOP. 30cc in last 30min. Tolerating regular diet. Discussed blood loss and h/h this am. Offered oral or IV iron and we will give IV iron today and possibly tomorrow. well. Objective - Vital Signs/Intake & Output Reviewed Vital Signs: Yes Vital Signs: Vital Signs x48h Temp Pulse Resp BP Pulse Ox 02/28/22 08:57 98.1 F 88 18 128/74 98 02/28/22 04:02 98.2 F 74 16 117/65 98 Intake & Output: Intake & Output 02/25/22 02/26/22 02/27/22 02/28/22 23:59 23:59 23:59 23:59 Intake Total 2650 2000 Output Total 210 400 Balance 2440 1600 - Objective General Appearance: positive: No acute distress Respiratory: positive: No respiratory distress Cardiovascular: positive: Regular rate & rhythm Abdomen: positive: Other (soft, appropriately tender, dressing c/d/i) Skin: positive: Color nml Extremities: positive: Non-tender Neurologic/Psychiatric: positive: Oriented x3 - Lab Results Fish Bones: 02/28/22 06:20 Other Labs: Lab Results x24hrs 02/28/22 Range/Units 06:20 WBC 8.0 (4.8-10.8) x10^3/uL RBC 3.18 L (4.20-5.40) 10^6/uL Hgb 8.4 L (12.0-16.0) g/dL Hct 26.1 L (37.0-47.0) % MCV 82.1 (81.0-99.0) fL MCH 26.4 L (27.0-31.0) pg MCHC 32.2 (32.0-36.0) g/dL RDW 15.4 H (12.0-15.0) % Plt Count 180 (130-450) 10^3/uL MPV 10.5 (7.9-10.8) fL Neut # (Auto) 6.0 (1.5-6.6) 10^3/uL Lymph # (Auto) 1.5 (1.5-3.5) 10^3/uL [place] # (Auto) 0.4 (0.0-1.0) 10^3/uL Eos # (Auto) 0.1 (0.0-0.7) 10^3/uL Baso # (Auto) 0.0 (0.0-0.1) 10^3/uL Absolute Nucleated RBC 0.00 x10^3/uL Nucleated RBC % 0.0 /100WBC Assessment/Plan - Problem List (1) Macrosomia affecting management of mother in third trimester Impression: 31yo s/p PCD 4/1 at 39w for suspected macrosomia, POD#1 doing well - Remove [place]o, voiding trial. OUP now improving. - IV iron today - Continue /postoperative care - Anticipate discharge home tomorrow Qualifiers: Fetus number: single or unspecified fetus Qualified Code(s): O36.63X0 - Maternal care for excessive growth, third trimester, not applicable or unspecified
[2022-02-28] MEDS ORDERED: FERRIC GLUCONATE 125 MG in SODIUM CHLORIDE 0.9% 100ML 100 ML IV ONE (09:45)
[2022-02-28] MEDS: metroNIDAZOLE 250 MG TABLET PO SCH ×3 (10:08→17:32)
[2022-02-28] MEDS: IBUPROFEN 600 MG TABLET PO SCH ×2 (14:34→20:55)
[2022-03-01] MEDS: ACETAMINOPHEN 500 MG TABLET PO SCH ×2 (00:48→06:52)
[2022-03-01] MEDS: oxyCODONE 5 MG TABLET PO PRN ×3 (03:06→10:55)
[2022-03-01] MEDS: IBUPROFEN 600 MG TABLET PO SCH ×2 (03:07→09:07)
[2022-03-01] MEDS: cephALEXin 250 MG CAPSULE PO SCH (04:25)
[2022-03-01 08:02] VITALS: BP 131/76
[2022-03-01] MEDS: DOCUSATE SODIUM 100 MG CAPSULE PO SCH (09:04)
[2022-03-01] MEDS: metroNIDAZOLE 250 MG TABLET PO SCH (09:04)
--- NOTE | 2022-03-01 11:12 | Discharge Plan ---
Discharge Plan Problem Reviewed?: Yes Disposition: Home, Self Care Condition: Good Diet: Regular Activity Restrictions: Pelvic rest for 6 weeks Shower Restrictions: No Driving Restrictions: Yes (No driving until comfortable without narcotics.) Weight Bearing: Full Weight Instruction Topics: No Smoking: If you smoke, Please STOP! Call for help. Follow-up with: Patrick Elias MD [Provider Admit Priv/Credential] -
--- NOTE | 2022-03-01 11:20 | DISCHARGE SUMMARY ---
"Discharge Summary Admit Date: 02/27/22 Discharge Date: 03/01/22 Discharging Provider: Joya Donahue DO Code Status: Attempt Resuscitation Condition at Discharge: Good Discharge Disposition: 01 Home, Self Care - DIAGNOSES Admission Diagnoses: 31yo at 39 weeks admitted 02/27 for planned PCD for suspected macrosomia. - acute blood loss anemia - HPI History of Present Illness: 31yo at 39 weeks admitted 02/27 for planned PCD for suspected macrosomia. See uncomplicated PCD operative report. She is recovering appropriately and meets criteria for discharge, feels ready to go home. well. Mood is good. and postoperative care reviewed, all questions answered. - CONSULTS | PROCEDURES Consultations: Anesthesia Procedures: Spinal Primary CD - HOSPITAL COURSE Hospital Course: 31yo at 39 weeks admitted 02/27 for planned PCD for suspected macrosomia. See uncomplicated PCD operative report. She is recovering appropriately and meets criteria for discharge, feels ready to go home. She received an iron infusion for acute blood loss anemia, postoperatively from PCD. w ell. Mood is good. and postoperative care reviewed, all questions answered. - ALLERGIES Allergies/Adverse Reactions: Allergies Allergy/AdvReac Type Severity Reaction Status Date / Time No Known Drug Allergies Allergy Verified 12/07/21 00:42 - MEDICATIONS Home Medications: Ambulatory Orders Medication Instructions Recorded Confirmed Acetaminophen [Tylenol] 1,000 mg PO Q8H tablet 03/01/22 Docusate Sodium 100Mg Capsule 100 mg PO BID 03/01/22 [Colace 100Mg Capsule] Ibuprofen [Motrin] 600 mg PO Q6H tablet 03/01/22 oxyCODONE [Roxicodone] 5 mg PO Q4HR PRN tablet 03/01/22 - PHYSICAL EXAM AT DISCHARGE General Appearance: positive: No acute distress Respiratory: positive: No respiratory distress Cardiovascular: positive: Regular rate & rhythm Abdomen: positive: Other (soft, appropriately tender, dressing removed and incision c/d/i, small area of skin irritation on left side above incision from adhesive) Extremities: positive: Non-tender Neurologic/Psychiatric: positive: Oriented x3 - LABS Result Diagrams: 02/28/22 06:20 - FOLLOW UP Follow Up: Follow up with OB 2w - TIME SPENT Time Spent in Discharge (Minutes): 25"
== END 2022-03-01 11:50 | disposition home or self-care (01) | DRG 788 ==
LOC: FBP 09:00
PROVIDERS: ADMIT Obstetrics & Gynecology; ATTEND Obstetrics & Gynecology
PROC: 10D00Z1 Extraction of Products of Conception, Low, Open Approach (ICD-10-PCS; principal; 2022-02-27 11:30)
DX: O36.63X0 Maternal care for excessive fetal growth, third trimester, not applicable or unspecified (principal); O99.214 Obesity complicating childbirth; E66.01 Morbid (severe) obesity due to excess calories; O99.814 Abnormal glucose complicating childbirth; Z3A.39 39 weeks gestation of pregnancy; Z37.0 Single live birth; Z63.79 Other stressful life events affecting family and household; Z87.891 Personal history of nicotine dependence; Z90.79 Acquired absence of other genital organ(s)
CPT/HCPCS: 36415; 85025; A9270; J0131; J2916; J7040; J7120; 86850; 86900; 86901

== ENCOUNTER 2022-03-03 17:40 | Emergency (ER) | payer MEDICAID ==
[2022-03-03 17:54] VITALS: BP 132/86
--- OUTSIDE RECORDS SUMMARY | 2022-03-03 18:53 | EXTERNAL MEDICAL SUMMARY RPT | Continuity of Care Document ---
:1990 Author Organization [place] Address [address] [place] [address] Phone Care Team Providers Name Role Phone Direct, Anisha SANON Unavailable Unavailable DISPATCHER RELAY, Ghazala Yo Unavailable Unavailable , Patrick Elias Unavailable Unavailable Elisha, Provider Unavailable Unavailable WILLIS, Joya Levine Unavailable Unavailable RN, Abeba Eller Unavailable Unavailable MPH, Jami Chow MD PHD Unavailable Unavaila faustina RN, Henny Obregon Unavailable Unavailable Allergies No information. Encounters No [...] All 20211216 Other specified problems related to [facility] All 20211216 Total score? [...] [id number] - SUBSEQUENT VISIT All 20211216 [id number] Initial Visit (Global) All 20211216 1HR GTT All 20211216 [id number] Initial Visit (Global) All 20211216 1HR GTT All 20211216 US OB FOLLOW-UP All 20211216 [id number] Initial Visit (Global) All 20211216 1HR GTT All 20211216 US OB FOLLOW-UP All 20211216 [id number] Initial Visit (Global) All 20211216 [id number] Initial Visit (Global) All 20211216 1HR GTT All 20211216 [id number] Initial Visit (Global) All 20211216 1HR GTT All 20211216 US OB FOLLOW-UP All 20211216 [id number] Initial Visit (Global) All [id number] 1HR GTT All 20211216 US OB FOLLOW-UP All Results test status date ordered by attending specimen antoine e Vaginal_Group_B_Strep_ unknown 20220212 unknown unknown unknown by_Real-Time_PCR T unknown [id number] unknown unknown unknown WBC_urine_on_microscop unknown [id number] unknown unknown unknown y Urobilinogen_Presence_ unknown [id number] unknown unknown unknown in_Urine_by_Test_strip Specific_gravity_of_Ur unknown 85834019 unknown unknown unknown ine_by_Test_strip Nitrite_Presence_in_Ur unknown 60449603 unknown unknown unknown ine_by_Test_strip Leukocyte_esterase_Pre unknown 53252756 unknown unknown unknown sence_in_Urine_by_Test_ strip Ketones_Mass_volume_in unknown 30662712 unknown unknown unknown _Urine_by_Test_strip Color_of_Urine unknown 67944247 unknown unknown unknown Bilirubin.total_Presen unknown [id number] unknown unknown unknown ce_in_Urine_by_Test_str ip clarity_urine_point unknown [id number] unknown unknown unk nown pH_study_of_acidity unknown 09223833 unknown unknown unk nown glucose_urine unknown 51640422 unknown unknown unknown leukocyte_esterase_uri unknown 71495352 unknown unknown unknown ne_by_dipstick urobilinogen_urine_sem unknown 85399111 unknown unknown unknown iquantitative_dipstick_ specific_gravity_urine unknown 27486931 unknown unknown unknown nitrite_urine_semiquan unknown 67205480 unknown unknown unknown titative ketones_urine_by_test_ unknown 63642257 unknown unknown unknown strip bilirubin_urine unknown 44774708 unknown unknown unknown urine_color unknown 66697145 unknown unknown unknown Glucose_Mass_volume_in unknown 76105823 unknown unknown unknown _Urine WBC_urine_on_microscop unknown 43895205 unknown unknown unknown y WBC_URINE unknown 82447602 unknown unknown unknown UROBILINOGEN_URINE unknown 36971890 unknown unknown unkn own SPECIFIC_GRAVITY_URINE unknown 18700624 unknown unknown unknown T unknown 80830527 unknown unknown unknown T unknown 93511353 unknown unknown unknown T unknown 52369738 unknown unknown unknown T unknown 55459288 unknown unknown unknown T unknown 89884755 unknown unknown unknown T unknown 22522090 unknown unknown unknown T unknown 49556743 unknown unknown unknown T unknown 34678700 unknown unknown unknown T unknown 81014343 unknown unknown unknown T unknown 68138437 unknown unknown unknown T unknown 28905239 unknown unknown unknown PH_URINE unknown 67640554 unknown unknown unknown NITRITE_URINE unknown 32559268 unknown unknown unknown LEUKOCYTE_ESTERASE_URI unknown 33637188 unknown unknown unknown NE KETONES_URINE_UA_ unknown 52423863 unknown unknown unkno wn GLUCOSE_URINE_UA_ unknown 48106129 unknown unknown unkno wn COLOR_URINE unknown 15743569 unknown unknown unknown CLARITY_URINE unknown 10838274 unknown unknown unknown BILIRUBIN_URINE unknown 34940166 unknown unknown unknown WBC_urine_on_microscop unknown 18648817 unknown unknown unknown y Urobilinogen_Presence_ unknown 76088200 unknown unknown unknown in_Urine_by_Test_strip Specific_gravity_of_Ur unknown 02121401 unknown unknown unknown ine_by_Test_strip Nitrite_Presence_in_Ur unknown 72848805 unknown unknown unknown ine_by_Test_strip Leukocyte_esterase_Pre unknown 50086765 unknown unknown unknown sence_in_Urine_by_Test_ strip Ketones_Mass_volume_in unknown 68615955 unknown unknown unknown _Urine_by_Test_strip Color_of_Urine unknown 75863181 unknown unknown unknown Bilirubin.total_Presen unknown 40514579 unknown unknown unknown ce_in_Urine_by_Test_str ip clarity_urine_point unknown 69902570 unknown unknown unk nown pH_study_of_acidity unknown 37140832 unknown unknown unk nown glucose_urine unknown 77468491 unknown unknown unknown leukocyte_esterase_uri unknown 49418695 unknown unknown unknown ne_by_dipstick urobilinogen_urine_sem unknown 41698602 unknown unknown unknown iquantitative_dipstick_ specific_gravity_urine unknown 99063129 unknown unknown unknown nitrite_urine_semiquan unknown 72899646 unknown unknown unknown titative ketones_urine_by_test_ unknown 17364549 unknown unknown unknown strip bilirubin_urine unknown 56436066 unknown unknown unknown urine_color unknown 46130338 unknown unknown unknown Glucose_Mass_volume_in unknown 53205320 unknown unknown unknown _Urine WBC_urine_on_microscop unknown 66314353 unknown unknown unknown y WBC_URINE unknown 75367932 unknown unknown unknown UROBILINOGEN_URINE unknown 75464804 unknown unknown unkn own SPECIFIC_GRAVITY_URINE unknown 86755586 unknown unknown unknown T unknown 73885680 unknown unknown unknown T unknown 59727579 unknown unknown unknown T unknown 01356273 unknown unknown unknown T unknown 76684230 unknown unknown unknown T unknown 60022803 unknown unknown unknown T unknown 18834164 unknown unknown unknown T unknown 39914475 unknown unknown unknown T unknown 68715239 unknown unknown unknown T unknown 86410651 unknown unknown unknown T unknown 73476188 unknown unknown unknown T unknown 63854773 unknown unknown unknown PH_URINE unknown 46847920 unknown unknown unknown NITRITE_URINE unknown 18094516 unknown unknown unknown LEUKOCYTE_ESTERASE_URI unknown 02583492 unknown unknown unknown NE KETONES_URINE_UA_ unknown 78535180 unknown unknown unkno wn GLUCOSE_URINE_UA_ unknown 03466559 unknown unknown unkno wn COLOR_URINE unknown 21080007 unknown unknown unknown CLARITY_URINE unknown 36386794 unknown unknown unknown BILIRUBIN_URINE unknown 24685355 unknown unknown unknown glucose_tolerance_test unknown 99285214 unknown unknown unknown _with_glucose_fasting blood_glucose_3_hours_ unknown 01975842 unknown unknown unknown after_glucose_tolerance _test blood_glucose_2_hours_ unknown 18460114 unknown unknown unknown after_glucose_tolerance _test blood_glucose_60_minut unknown 24637670 unknown unknown unknown es_after_glucose_tolera nce_test glucose_tolerance_test unknown 24959720 unknown unknown unknown _with_glucose_fasting blood_glucose_3_hours_ unknown 99217653 unknown unknown unknown after_glucose_tolerance _test blood_glucose_2_hours_ unknown 97921138 unknown unknown unknown after_glucose_tolerance _test blood_glucose_60_minut unknown 42727910 unknown unknown unknown es_after_glucose_tolera nce_test glucose_tolerance_test unknown 46430187 unknown unknown unknown _with_glucose_fasting blood_glucose_3_hours_ unknown 46180529 unknown unknown unknown after_glucose_tolerance _test blood_glucose_2_hours_ unknown 28920985 unknown unknown unknown after_glucose_tolerance _test blood_glucose_60_minut unknown 62897728 unknown unknown unknown es_after_glucose_tolera nce_test glucose_tolerance_test unknown 53202213 unknown unknown unknown _with_glucose_fasting blood_glucose_3_hours_ unknown 10966775 unknown unknown unknown after_glucose_tolerance _test blood_glucose_2_hours_ unknown 80484369 unknown unknown unknown after_glucose_tolerance _test blood_glucose_60_minut unknown 65333308 unknown unknown unknown es_after_glucose_tolera nce_test blood_glucose_1_hour_a unknown 23904979 unknown unknown unknown fter_100_gm_oral_glucos e blood_glucose_1_hour_a unknown 97010146 unknown unknown unknown fter_50_gm_oral_glucose blood_glucose_1_hour_a unknown 88726458 unknown unknown unknown fter_100_gm_oral_glucos e blood_glucose_1_hour_a unknown 50382848 unknown unknown unknown fter_50_gm_oral_glucose T unknown 74508486 unknown unknown unknown GLUCOSE_1H_PP_50GM_DOS unknown 63296137 unknown unknown unknown E blood_glucose_1_hour_a unknown 68091465 unknown unknown unknown fter_100_gm_oral_glucos e blood_glucose_1_hour_a unknown 92781501 unknown unknown unknown fter_50_gm_oral_glucose blood_glucose_1_hour_a unknown 67937932 unknown unknown unknown fter_100_gm_oral_glucos e blood_glucose_1_hour_a unknown 40598787 unknown unknown unknown fter_50_gm_oral_glucose T unknown 97135449 unknown unknown unknown GLUCOSE_1H_PP_50GM_DOS unknown 31285985 unknown unknown unknown E blood_glucose_1_hour_a unknown 02072812 unknown unknown unknown fter_100_gm_oral_glucos e blood_glucose_1_hour_a unknown 93501071 unknown unknown unknown fter_50_gm_oral_glucose blood_glucose_1_hour_a unknown 83840761 unknown unknown unknown fter_100_gm_oral_glucos e blood_glucose_1_hour_a unknown 50144149 unknown unknown unknown fter_50_gm_oral_glucose T unknown 78569370 unknown unknown unknown GLUCOSE_1H_PP_50GM_DOS unknown 74597800 unknown unknown unknown E blood_glucose_1_hour_a unknown 16057511 unknown unknown unknown fter_100_gm_oral_glucos e blood_glucose_1_hour_a unknown 20465502 unknown unknown unknown fter_50_gm_oral_glucose blood_glucose_1_hour_a unknown 97486968 unknown unknown unknown fter_100_gm_oral_glucos e blood_glucose_1_hour_a unknown 77437403 unknown unknown unknown fter_50_gm_oral_glucose T unknown 80493729 unknown unknown unknown GLUCOSE_1H_PP_50GM_DOS unknown 85455332 unknown unknown unknown E blood_glucose_1_hour_a unknown 78498761 unknown unknown unknown fter_100_gm_oral_glucos e blood_glucose_1_hour_a unknown 87345369 unknown unknown unknown fter_50_gm_oral_glucose blood_glucose_1_hour_a unknown 09617396 unknown unknown unknown fter_100_gm_oral_glucos e blood_glucose_1_hour_a unknown 67788932 unknown unknown unknown fter_50_gm_oral_glucose T unknown 41057155 unknown unknown unknown GLUCOSE_1H_PP_50GM_DOS unknown 34207476 unknown unknown unknown E blood_glucose_1_hour_a unknown 46157654 unknown unknown unknown fter_100_gm_oral_glucos e blood_glucose_1_hour_a unknown 74891732 unknown unknown unknown fter_50_gm_oral_glucose blood_glucose_1_hour_a unknown 72025736 unknown unknown unknown fter_100_gm_oral_glucos e blood_glucose_1_hour_a unknown 13003712 unknown unknown unknown fter_50_gm_oral_glucose T unknown 88539933 unknown unknown unknown GLUCOSE_1H_PP_50GM_DOS unknown 11331326 unknown unknown unknown E Candida_glabrata_DNA_P unknown 20211227 unknown unknown unknown resence_in_Vaginal_flui d_by_NAA_with_probe_det ection WBC_urine_on_microscop unknown 20211227 unknown unknown unknown y Urobilinogen_Presence_ unknown 20211227 unknown unknown unknown in_Urine_by_Test_strip Specific_gravity_of_Ur unknown 25570288 unknown unknown unknown ine_by_Test_strip Nitrite_Presence_in_Ur unknown 20211227 [...] DNA_PROBE Candida_glabrata_by_Re unknown 20211227 unknown unknown unknown ji-lvge_QVF_-_pgcbsek_n ulture WBC_urine_on_microscop unknown 20211227 unknown unknown unknown [...] DNA_PROBE Candida_glabrata_by_Re unknown 20211227 unknown unknown unknown li-afrl_QWN_-_mxkbtrv_l ulture WBC_urine_on_microscop unknown 20211227 unknown unknown unknown [...] DNA_PROBE Candida_glabrata_by_Re unknown 20211227 unknown unknown unknown eu-hfql_YWZ_-_ohdbopj_g ulture WBC_urine_on_microscop unknown 20211227 unknown unknown unknown [...] DNA_PROBE Candida_glabrata_by_Re unknown 20211227 unknown unknown unknown hn-ykir_PTM_-_rtpgxve_m ulture WBC_urine_on_microscop unknown 20211227 unknown unknown unknown [...] DNA_PROBE Candida_glabrata_by_Re unknown 20211227 unknown unknown unknown al-qiyd_WJQ_-_dfronnv_i ulture WBC_urine_on_microscop unknown 20211227 unknown unknown unknown [...] DNA_PROBE Candida_glabrata_by_Re unknown 20211227 unknown unknown unknown bl-pizl_KUD_-_qxgtwke_v ulture WBC_urine_on_microscop unknown 20211227 unknown unknown unknown [...] DNA_PROBE Candida_glabrata_by_Re unknown 20211227 unknown unknown unknown hn-pdni_GAH_-_hcuqwqy_k ulture WBC_urine_on_microscop unknown 20211227 unknown unknown unknown [...] DNA_PROBE Candida_glabrata_by_Re unknown 20211207 unknown unknown unknown ky-aosa_OQL_-_zgzihet_w ulture WBC_urine_on_microscop unknown 20211207 unknown unknown unknown [...] 20211207 unknown unknown unknown ine_by_Test_strip Nitrite_Presence_in_Ur unknown 78422285 unknown unknown unknown ine_by_Test_strip Leukocyte_esterase_Pre unknown 20211207 [...] DNA_PROBE Candida_glabrata_by_Re unknown 20211207 unknown unknown unknown uf-bgdg_TUA_-_dacjtaa_q ulture WBC_urine_on_microscop unknown 20211207 unknown unknown unknown [...] DNA_PROBE Candida_glabrata_by_Re unknown 20211207 unknown unknown unknown uu-lxim_ONK_-_ulqwkwy_q ulture WBC_urine_on_microscop unknown 20211207 unknown unknown unknown [...] 20211207 unknown unknown unknown -Time_PCR Candida_glabrata_by_Re unknown [id number] unknown unknown unknown ap-diwx_ISU_-_yapyrna_d ulture CANDIDA_KRUSEI_DNA unknown 20211207 unknown unknown unkn [...] unknown 101 unknown mg/dL _3383 unknown unknown rance_test_[facility]_glucose_fa sting All blood_glucos unknown 99 unknown mg/dL _3379 unknown unknown e_3_hours_aft er_glucose_to lerance_test All blood_glucos unknown 128 unknown mg/dL _3378 unknown unknown e_2_hours_aft er_glucose_to lerance_test All blood_glucos unknown 179 unknown mg/dL _3377 unknown unknown e_60_minutes_ after_glucose _tolerance_te All blood_glucos unknown 140 (?) unknown _310 [...] P_50GM All GLUCOSE_1H_P unknown 140 (?) unknown [id number] unkn own unknown P_50GM_DOSE All blood_glucos unknown [...] P_50GM All GLUCOSE_1H_P unknown 140 (?) unknown [id number] unkn own unknown P_50GM_DOSE All blood_glucos unknown [...] P_50GM All GLUCOSE_1H_P unknown 140 (?) unknown [id number] unkn own unknown P_50GM_DOSE All blood_glucos unknown [...] P_50GM All GLUCOSE_1H_P unknown 140 (?) unknown [id number] unkn own unknown P_50GM_DOSE All blood_glucos unknown [...] P_50GM All GLUCOSE_1H_P unknown 140 (?) unknown [id number] unkn own unknown P_50GM_DOSE All blood_glucos unknown [...] P_50GM All GLUCOSE_1H_P unknown 140 (?) unknown [id number] unkn own unknown P_50GM_DOSE All Candida_glab unknown [...] ei_by_Real-Ti me_PCR All chlamydia_DN unknown NEGATIVE unknown _58722 unkno wn unknown A_probe All TRICHOMONAS_ unknown [...] ei_by_Real-Ti me_PCR All chlamydia_DN unknown NEGATIVE unknown _41322 unkno wn unknown A_probe All TRICHOMONAS_ unknown [...] ei_by_Real-Ti me_PCR All chlamydia_DN unknown NEGATIVE unknown _84610 unkno wn unknown A_probe All TRICHOMONAS_ unknown [...] height_standard 67 in 20220203 height_metric 170.18 cm [id number] BP_systolic 122 mm[Hg] 20220203 BP_diastolic 80 mm[Hg] 20220203 BMI 47.63 kg/m2 20220220 weight_standard 317 lb 20220220 weight_metric 143.79 kg 20220220 temperature_standard 97.3 F 20220220 temperature_metric 36.28 C 20220220 height_standard 67 in 20220220 height_metric 170.18 cm 20220220 BP_systolic 136 mm[Hg] 20220220 BP_diastolic 72 mm[Hg] 20220220 BMI 49.83 kg/m2
== END 2022-03-03 18:25 | disposition left against medical advice (07) ==
LOC: ED 17:40
DX: Z53.21 Procedure and treatment not carried out due to patient leaving prior to being seen by health care provider (principal)

== ENCOUNTER 2022-12-28 11:45 | Outpatient (CLI) | payer MEDICAID ==
[2022-12-28 15:29] LABS: BILIRUBIN,URINE NEGATIVE (NEGATIVE); GLUCOSE, URINE (UA) NEGATIVE (NEGATIVE); KETONES,URINE (UA) NEGATIVE (NEGATIVE); LEUKOCYTE ESTERASE, URINE NEGATIVE (NEGATIVE); NITRITE,URINE NEGATIVE (NEGATIVE); OCCULT BLOOD,URINE NEGATIVE (NEGATIVE); PH,URINE 5.5 PH (5.0-7.5); PROTEIN,URINE NEGATIVE (NEGATIVE); UROBILINOGEN,URINE 0.2 (NORMAL) E.U./dL (NORMAL)
[2022-12-28 15:30] LABS: CLARITY,URINE CLOUDY (CLEAR)
[2022-12-28 15:49] LABS: BACTERIA,URINE None Seen /HPF (None Seen); RBC,URINE None Seen /HPF (0-5); SQUAMOUS EPITHELIAL CELL,UR NONE SEEN (<= Few); WBC,URINE 0-3 /HPF (0-5)
[2022-12-28 15:50] LABS: AMORPHOUS SEDIMENT,UR Marked /LPF
== END 2022-12-28 23:59 | disposition home or self-care (01) ==
LOC: LAB 11:45
PROVIDERS: ATTEND Obstetrics & Gynecology
DX: R32 Unspecified urinary incontinence (principal)
CPT/HCPCS: 81001; 87086

== ENCOUNTER 2023-01-27 15:54 | Emergency (ER) | payer MEDICAID ==
[2023-01-27 16:05] VITALS: BP 125/95
--- NOTE | 2023-01-27 16:10 | ED Physician Documentation ---
PD HPI OPHTHO - Stated complaint Stated Complaint: EYE IRRITATION - Chief complaint Chief Complaint: Heent - History obtained from History obtained from: Patient - History of Present Illness Timing - onset: How many days ago (6 days of eyes itchy and burning, with it worse today and noted swelling of conjuntiva after rubbing eye earlier.) Timing - duration: Days (6) Timing - details: Gradual onset, Still present, Waxing and waning (had eyeliner tattoo applied both eyelids 6 days ago and noted some burning feeling in eyes as some of the topical numbing medication for skin got into the eyes. has had intermittent burning and itching. has been using a&D ointment and then aquaphor to the eyelids for the tattoo healing.), Still present in ED (she rubbed eye earlier and noted it feeling swollen. looked in mirror and thought her eye was peeling off with boggy tissue both eyes.) Location: Both Quality / character: Itching, Burning Associated symptoms: Redness. No: Discharge, Matting, FB sensation, Photophobia Contributing factors: Other (using skin healing ointment to eyelids the past 6 days.). No: Recent URI, Wears contacts Review of Systems Eyes: reports: Irritation. denies: Loss of vision, Photophobia, Discharge Nose: denies: Rhinorrhea / runny nose, Congestion Throat: denies: Sore throat PD PAST MEDICAL HISTORY - Past Medical History Cardiovascular: None Respiratory: None Endocrine/Autoimmune: None - Past Surgical History /[employer]: Other (salphingectomy) - Present Medications Home Medications: Ambulatory Orders Medication Instructions Recorded Confirmed Ketorolac Tromethamine 2 drops EACHEYE TID 5 Days #10 ml 01/27/23 Ketotifen Fumarate [Eye Itch 2 - 3 drops EACHEYE TID PRN #10 ml 01/27/23 Relief] - Allergies Allergies/Adverse Reactions: Allergies Allergy/AdvReac Type Severity Reaction Status Date / Time No Known Drug Allergies Allergy Verified 01/27/23 16:05 - Social History Does the pt smoke?: No Smoking Status: Former smoker Does the pt drink ETOH?: No Does the pt have substance abuse?: No PD ED PE NORMAL - Vitals Vital signs reviewed: Yes - General General: Alert and oriented X 3, Well developed/nourished - HEENT HEENT: PERRL, EOMI, Other (there is conjunctival edema both eyes, left more, with boggy clear appearance of conjunctiva over the scleral areas. no swelling over iris. some hyperemia. the eyelid tattooing is healing well without signs of infection. anterior and posterior chambers clear without flare nor cells, and no photophob) Results - Vitals Vitals: Oxygen O2 Source Room air PD Medical Decision Making - ED course Complexity details: considered differential (does not look bacterial. presume it is allergic/chemical irritant from the tattooing, but also the skin care ointments for lid. The lids are healed well, so patient advised to just stop using any ointment on lids. can give rx for ketoralac and ketotifen eye drops for inflammation and allergy.), d/w patient Departure - Departure Disposition: 01 Home, Self Care Clinical Impression: Conjunctivitis, allergic, Conjunctival edema of both eyes Condition: Stable Record reviewed to determine appropriate education?: Yes Prescriptions: Ketotifen Fumarate [Eye Itch Relief] 2 - 3 drops EACHEYE TID PRN #10 ml PRN Reason: Itching Ketorolac Tromethamine 2 drops EACHEYE TID 5 Days #10 ml Comments: This looks to be an allergic reaction with some swelling of the conjunctive a. I presume it is related to the ointments used on the eyelid having an effect onto the eye itself. I would suggest stopping any skin ointments for the eyelid. They look to be healing well anyway and can be without. Treat the eyes with a combination of anti-inflammatory and antihistamine. I wrote prescriptions for ketorolac and ketotifen eyedrops. Use in 3-4 times daily for the next few days until better and then as needed. I would anticipate improvement within even this evening regarding the edema and over the next day or 2 regarding the general itching and burning. Recheck if not getting better in that timeframe. I sent the prescriptions to the [facility] pharmacy. Discharge Date/Time: 01/27/23 17:00
[2023-01-27] MEDS ORDERED: PROPARACAINE 0.5% OPHTH DROPS 15 ML EACHEYE STA (16:12)
== END 2023-01-27 17:00 | disposition home or self-care (01) ==
LOC: ED 15:54
DX: H10.13 Acute atopic conjunctivitis, bilateral (principal); H11.423 Conjunctival edema, bilateral; Z87.891 Personal history of nicotine dependence
CPT/HCPCS: 99282; 99283; J3490

== ENCOUNTER 2024-01-27 18:17 | Outpatient (CLI) | payer MEDICAID, OTHER | END 2024-01-27 23:59 | disposition EMS.NT | LOC: EMS 18:17 | DX: M79.602 Pain in left arm (principal); V03.00XA Pedestrian on foot injured in collision with car, pick-up truck or van in nontraffic accident, initial encounter; Y92.481 Parking lot as the place of occurrence of the external cause ==

== ENCOUNTER 2024-02-17 17:02 | Outpatient (CLI) | payer MEDICAID ==
--- NOTE | 2024-02-18 08:59 | XRAY Report ---
PROCEDURE: Chest 2V INDICATIONS: UPPER RESPIRATORY INFECTION TECHNIQUE: 2 views of the chest were acquired. COMPARISON: 09/03/2013. FINDINGS: Surgical changes and devices: None. Lungs and pleura: No pleural effusions or pneumothorax. Mild increased buckle vascular markings in b ilateral hilar region are seen with mild bronchial wall thickening. No focal infiltrate. Mediastinum: Mediastinal contours appear normal. Heart size is normal. Bones and chest wall: No suspicious bony lesions. Overlying soft tissues appear unremarkable. IMPRESSION: Suggestion of mild reactive airway disease such as bronchiolitis or viral illness. No definite focal infiltrate. No pleural effusion or pneumothorax. Reviewed by: Rivera Vincent MD on 02/18/2024 8:57 AM PDT Approved by: Rivera Vincent MD on 02/18/2024 8:57 AM PDT Station ID: [id number]
--- NOTE | 2024-02-18 10:00 | XRAY Report ---
PROCEDURE: Shoulder 2+V LT INDICATIONS: PAIN IN LEFT SHOULDER TECHNIQUE: 2 views of the shoulder were acquired. COMPARISON: CXR 02/17/2024. FINDINGS: Bones: No fractures or dislocations. No suspicious bony lesions. Visualized ribs appear intact. Soft tissues: No suspicious soft tissue calcifications. The visualized lungs are within normal limi ts. IMPRESSION: No acute bony abnormality. Reviewed by: Fly Garvin MD on 02/18/2024 9:59 AM PDT Approved by: Fly Garvin MD on 02/18/2024 9:59 AM PDT Station ID: [id number]
--- NOTE | 2024-02-18 10:00 | XRAY Report ---
PROCEDURE: Lumbar Spine 2-3V INDICATIONS: LOW BACK PAIN, UNSPECIFIED TECHNIQUE: 3 views of the lumbar spine were acquired. COMPARISON: None. FINDINGS: Bones: 5 [id number] vertebrae are present. Trace levoconvex curvature. No vertebral body compre ssion fractures. No suspicious bony lesions. Mild facet hypertrophy is seen at the lower spine. Soft tissues: Overlying bowel gas pattern is normal. No suspicious soft tissue calcifications. Rig ht upper quadrant cholecystectomy clips. IMPRESSION: Minimal spondylosis. Reviewed by: Wero Key MD on 02/18/2024 9:59 AM PDT Approved by: Wero Key MD on 02/18/2024 9:59 AM PDT Station ID: [id number]
[2024-02-19 05:13] LABS: HBsAG SCREEN Negative (Negative); HEPATITIS B SURFACE AB QUAL Reactive (.)
[2024-02-19 07:10] LABS: HIV SCREEN 4TH GENERATION Non Reactive (Non Reactive)
[2024-02-19 08:10] LABS: HCV AB Non Reactive (Non Reactive)
== END 2024-02-17 17:03 | disposition home or self-care (01) ==
LOC: DI 17:02
PROVIDERS: ATTEND Nurse Practitioner Family
DX: J06.9 Acute upper respiratory infection, unspecified (principal); M47.816 Spondylosis without myelopathy or radiculopathy, lumbar region; M25.512 Pain in left shoulder; S61.439A Puncture wound without foreign body of unspecified hand, initial encounter
CPT/HCPCS: 36415; 86706; 86709; 86803; 87340; 87389; 87522